=== PATIENT | male | born 1945 | race Caucasian/White ===

== ENCOUNTER → 2016-04-28 | Outpatient (CLI) | payer OTHER ==
[~2016-04-28] MED LIST: ALPR-411 PO; ANT25 PO; ASPI325T45 PO; LISI-461 PO; METF1TAB53 PO; METO50TA16 PO; PARO1TAB29 PO; SIMV80TA2 PO; TAMS0.4C38 PO
--- NOTE | 2016-04-28 15:15 | DIAGNOSTIC IMAGING REPORT ---
TWO VIEW CHEST CLINICAL HISTORY: Cough and dyspnea. FINDINGS: AP and lateral chest radiographs are obtained. No prior studies are available for comparison at the time of dictation. The examination is degraded by large body habitus. The heart is enlarged and there is atherosclerotic calcification of the thoracic aorta. There is mild left basilar atelectasis. The lungs and pleural spaces are otherwise clear. There is no pneumothorax. The skeletal structures appear osteopenic. The bony thorax appears intact. Surgical clips are identified in the upper abdomen. IMPRESSION: Cardiomegaly with no active disease in the chest. Electronically signed by: Lv Gotti M.D. 04/28/2016 3:13 PM
== END | disposition home or self-care (01) ==
LOC: C.RADPV 14:41
PROVIDERS: ATTEND Family Medicine
DX: R05 Cough (principal); R06.02 Shortness of breath

== ENCOUNTER → 2016-08-27 | Outpatient (CLI) | payer OTHER ==
[~2016-08-27] MED LIST changes: -ANT25 PO; +REGADENOSON 0.4 MG/5 ML SYR ONE
--- NOTE | 2016-08-29 14:35 | MYOCARDIAL PERFUSION SCAN ---
ONE-DAY NUCLEAR MEDICINE TECHNETIUM-99M CARDIOLITE MYOCARDIAL PERFUSION SCAN CLINICAL HISTORY: The patient has a known history of coronary artery disease and has been experiencing a chest pain syndrome. COMPARISON: None. TECHNIQUE: For the stress portion of the study, 30.6 mCi of Technetium 99m Cardiolite IV was injected at 1:25p.m. on 08/27/2016. Thirty minutes following the injection, imaging of the heart was performed in multiple projection. For the rest portion of the study, 10.2 mCi of Technetium 99m Cardiolite was injected IV at 11:35 a.m. One hour following the injection, imaging of the heart was performed in the same projections. For the stress portion of the study, 0.4 mg of Lexiscan was injected intravenously as per protocol. The patient did not experience chest discomfort nor EKG changes. Following the infusion, the patient was hemodynamically stable without complaints. FINDINGS: The short axis, vertical long axis, and horizontal long axis images were reviewed in detail. There is a fixed defect involving the proximal and mid inferior wall present at both stress and rest. This likely represents an old myocardial infarction. There is some mild lee ann-infarction ischemia. The left ventricle demonstrates moderately reduced systolic performance with an ejection fraction of 36%. There is an area of akinesis involving the mid and proximal inferior wall. Other vergara function normally. CONCLUSIONS: 1. 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 2. No Lexiscan induced chest pain. 3. No Lexiscan induced EKG changes. 4. Moderately reduced left ventricular ejection fraction of 36% with an inferior wall motion abnormality.
== END | disposition home or self-care (01) ==
LOC: C.NUCL 11:11
PROVIDERS: ATTEND Internal Medicine Cardiovascular Disease
DX: E11.9 Type 2 diabetes mellitus without complications (principal); I25.10 Atherosclerotic heart disease of native coronary artery without angina pectoris; R06.02 Shortness of breath; R07.89 Other chest pain

== ENCOUNTER 2017-04-14 13:32 | Emergency (ER) | payer OTHER ==
[~2017-04-14] VITALS: Ht 167.6 cm; Wt 113.0 kg
[~2017-04-14 13:32] MED LIST changes: -REGADENOSON 0.4 MG/5 ML SYR ONE
[2017-04-14 13:36] VITALS: TEMP 36.3
[2017-04-14 13:47] VITALS: O2SAT 94
[2017-04-14 13:49] VITALS: Ht 167.6 cm; Wt 113.0 kg
[2017-04-14] MEDS ORDERED: SODIUM CHLORIDE 0.9% 500ML 500 ML IV STA (14:03)
--- NOTE | 2017-04-14 14:13 | EMERGENCY ROOM VISIT NOTE ---
History Report prepared by Jony: Sonny Orellana Under the Supervision of: Dr. Patricio Muir D.O. 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 He notes that he has had balance issues, noise in both ears, and intermittent memory loss for one week [employer]STRUCTION SUPERINTENDENT. He notes the noise in his ears sounds like "traffic going by." His PCP prescribed him "motion sickness" medication, though the symptoms have not been relieved. He notes nausea, which he contributes to the medication. He denies any vomiting, chest pain, shortness of breath, or headaches. He denies a history of CVA. He takes Aspirin daily. He has a history of DM. He denies any tobacco or alcohol use. 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 Review of Systems See HPI for pertinent positives & negatives. A total of 10 systems reviewed and were otherwise negative. Past Medical & Surgical Medical Problems: (1) CAD (coronary artery disease) (2) Diabetes (3) HTN (hypertension) Family History Diabetes mellitus FH: gallbladder disease FH: heart disease Hypertension Social History Smoking Status: Former Smoker Alcohol Use: none Drug Use: none Marital Status: Housing Status: lives with significant other Occupation Status: unemployed Current/Historical Medications Scheduled Alprazolam (Xanax), 0.5 MG PO Q6H Aspirin (Aspirin), 325 MG PO DAILY Lisinopril (Zestril), 10 MG PO DAILY Meclizine HCl (Meclizine HCl), 25 MG PO TID Metformin Hcl (Glucophage Ext Rel), 1,000 MG PO BID Metoprolol Tartrate (Lopressor) (Lopressor), 50 MG PO BID Paroxetine (Paxil), 40 MG PO DAILY Simvastatin (Zocor), 80 MG PO QPM Tamsulosin Hcl (Flomax), 0.4 MG PO DAILY Allergies Coded Allergies: No Known Allergies (Unverified , 04/14/17) Physical Exam Vital Signs Date Time Temp Pulse Resp B/P (MAP) Pulse Ox O2 Delivery O2 Flow Rate FiO2 04/14/17 16:26 65 16 144/89 95 04/14/17 15:01 61 20 95 Room Air 04/14/17 13:55 60 22 135/80 94 Room Air 63 133/74 71 104/60 04/14/17 13:51 65 04/14/17 13:47 94 Room Air 04/14/17 13:36 36.3 72 20 158/82 93 Room Air Physical Exam GENERAL: Patient is awake, alert, and in no acute distress. Patient is resting comfortably and showing no signs of anxiety EYES: The conjunctivae are clear. The pupils are restricted and minimally reactive to light bilaterally. EOM intact, no nystagmus noted. EARS, NOSE, MOUTH AND THROAT: The nose is without any evidence of any deformity. Mucous membranes are moist tongue is midline. TMs clear bilaterally. NECK: The neck is nontender and supple. RESPIRATORY: Normal respiratory effort is noted there is no evidence of wheezing rhonchi or rales CARDIOVASCULAR: Regular rate and rhythm noted there no murmurs rubs or gallops normal S1 normal S2 GASTROINTESTINAL: The abdomen is soft. Bowel sounds are present in all quadrants. Abdomen is nontender MUSCULOSKELETAL/EXTREMITIES: There is no evidence of gross deformity full range of motion is noted in the hips and shoulders. Ecchymosis over left lower leg, no deformities, no calf tenderness elicited. SKIN: There is no obvious evidence of any rash. There are no petechiae, pallor or cyanosis noted. Pulses are symmetric. Bilateral pedal edema. NEUROLOGIC: Patient is awake alert and oriented x3 strength is symmetric patellar reflexes are 2+ bilaterally Medical Decision & Procedures ER Provider Diagnostic Interpretation: Radiology results as stated below per my review and radiologist interpretation: CHEST ONE VIEW PORTABLE CLINICAL HISTORY: Altered mental status. COMPARISON STUDY: April 28, 2016 FINDINGS: The heart is mildly enlarged. There is no failure. There is no focal pulmonary consolidation. There are no pleural effusions. There is a prominent left cardiophrenic angle fat pad.[ IMPRESSION: No active disease in the chest. Electronically signed by: Mark Hughes M.D. 04/14/2017 2:14 PM Dictated Date/Time: 04/14/2017 2:13 PM L TIBIA/FIBULA 2 VIEWS ROUTINE CLINICAL HISTORY: Left lower leg pain status post trauma COMPARISON: None. DISCUSSION: No fractures or dislocations are visualized. There are no areas of pathologic periostitis. Minor irregularity of the medial malleolar tip is felt to be chronic. IMPRESSION: No acute fractures identified. Electronically signed by: Mark Hughes M.D. 04/14/2017 2:40 PM Dictated Date/Time: 04/14/2017 2:[address] HEAD WITHOUT CONTRAST (CT) CLINICAL HISTORY: Altered mental status and weakness. COMPARISON STUDY: No previous studies for comparison. TECHNIQUE: Axial CT of the brain is performed from the vertex to the skull base. IV contrast was not administered for this examination. A dose lowering technique was utilized adhering to the principles of ALARA. CT DOSE: FINDINGS: No intra or extra-axial mass lesions are visualized. There is no CT evidence of acute cortical infarction. There is no evidence of midline shift. There is no acute hemorrhage. No calvarial fractures are visualized. There are patchy white matter hypodensities likely on a small vessel basis. There is no evidence of pathologic ventricular dilatation. There is no evidence of acute sinusitis IMPRESSION: No acute intracranial findings Electronically signed by: Mark Hughes M.D. 04/14/2017 2:49 PM Dictated Date/Time: 04/14/2017 2:[address] OF THE CERVICAL SPINE CLINICAL HISTORY: Neck pain and weakness status post trauma COMPARISON STUDY: No previous studies for comparison. CT DOSE: 1201.98 mGy.cm TECHNIQUE: CT scan of the cervical spine was performed from the skull base to the thoracic inlet. Images are reviewed in the axial, sagittal, and coronal planes. IV contrast was not administered for this examination. A dose lowering technique was utilized adhering to the principles of ALARA. FINDINGS: There is a 1 cm left lobe thyroid nodule. There is no pneumothorax. The prevertebral soft tissues are normal. No fractures or subluxations are visualized. There are multilevel degenerative changes IMPRESSION: No evidence of acute fracture or traumatic subluxation. Electronically signed by: Mark Hughes M.D. 04/14/2017 2:49 PM Dictated Date/Time: 04/14/2017 2:45 PM Laboratory Results 04/14/17 14:07 Red Blood Count 4.63, Mean Corpuscular Volume 85.5, Mean Corpuscular Hemoglobin 29.8, Mean Corpuscular Hemoglobin Concent 34.8, Mean Platelet Volume 9.3, Neutrophils (%) (Auto) 63.0, Lymphocytes (%) (Auto) 24.1, Monocytes (%) (Auto) 8.9, Eosinophils (%) (Auto) 3.4, Basophils (%) (Auto) 0.4, Neutrophils # (Auto) 3.13, Lymphocytes # (Auto) 1.20, Monocytes # (Auto) 0.44, Eosinophils # (Auto) 0.17, Basophils # (Auto) 0.02 04/14/17 14:07 Test 04/14/17 14:07 White Blood Count 4.97 K/uL (4.8-10.8) Red Blood Count 4.63 M/uL (4.7-6.1) Hemoglobin 13.8 g/dL (14.0-18.0) Hematocrit 39.6 % (42-52) Mean Corpuscular Volume 85.5 fL (80-100) Mean Corpuscular Hemoglobin 29.8 pg (25-34) Mean Corpuscular Hemoglobin Concent 34.8 g/dl (32-36) Platelet Count 116 K/uL (130-400) Mean Platelet Volume 9.3 fL (7.4-10.4) Neutrophils (%) (Auto) 63.0 % Lymphocytes (%) (Auto) 24.1 % Monocytes (%) (Auto) 8.9 % Eosinophils (%) (Auto) 3.4 % Basophils (%) (Auto) 0.4 % Neutrophils # (Auto) 3.13 K/uL (1.4-6.5) Lymphocytes # (Auto) 1.20 K/uL (1.2-3.4) Monocytes # (Auto) 0.44 K/uL (0.11-0.59) Eosinophils # (Auto) 0.17 K/uL (0-0.5) Basophils # (Auto) 0.02 K/uL (0-0.2) RDW Standard Deviation 46.2 fL (36.4-46.3) RDW Coefficient of Variation 15.0 % (11.5-14.5) Immature Granulocyte % (Auto) 0.2 % Immature Granulocyte # (Auto) 0.01 K/uL (0.00-0.02) Prothrombin Time 10.7 SECONDS (9.0-12.0) Prothromb Time International Ratio 1.0 (0.9-1.1) Activated Partial Thromboplast Time 26.1 SECONDS (21.0-31.0) Partial Thromboplastin Ratio 1.0 Anion Gap 8.0 mmol/L (3-11) Est Creatinine Clear Calc Drug Dose 63.9 ml/min Estimated GFR () 65.9 Estimated GFR (Non- 56.9 BUN/Creatinine Ratio 18.3 (10-20) Calcium Level 9.1 mg/dl (8.5-10.1) Magnesium Level 1.9 mg/dl (1.8-2.4) Total Bilirubin 0.8 mg/dl (0.2-1) Direct Bilirubin 0.2 mg/dl (0-0.2) Aspartate Amino Transf (AST/SGOT) 30 U/L (15-37) Alanine Aminotransferase (ALT/SGPT) 44 U/L (12-78) Alkaline Phosphatase 119 U/L (45-117) Total Creatine Kinase 77 U/L (39-308) Creatine Kinase MB 1.2 ng/ml (0.5-3.6) Creatine Kinase MB Ratio 1.6 (0-3.0) Troponin I < 0.015 ng/ml (0-0.045) Total Protein 7.5 gm/dl (6.4-8.2) Albumin 3.9 gm/dl (3.4-5.0) Lipase 364 U/L (73-393) Thyroid Stimulating Hormone (TSH) 1.890 uIu/ml (0.300-4.500) Laboratory results per my review. Medications Administered Medications (Trade) Dose Ordered Sig/Adonis Route Start Time Stop Time Status Last Admin Dose Admin Sodium Chloride 500 ml @ 999 mls/hr Q31M STAT IV 04/14/17 14:03 04/14/17 14:33 DC 04/14/17 14:15 999 MLS/HR ECG Indication: other (dizziness) Rate (beats per minute): 59 Rhythm: normal sinus Findings: no ectopy, other (no acute ST segment abnormalities ) Comparison ECG Date: no prior available ED Course 1341: The patient was evaluated in room C12B. A complete history and physical examination were performed. 1403: Ordered NSS 500 ml @ 999 mls/hr IV 1555: I reassessed the patient at this time. He is feeling better and resting comfortably. I discussed the results and treatment plan with the patient. I answered all pertaining questions that he had. He expressed understanding and verbalized agreement. The patient will be discharged home. Medical Decision Prior records/ancillary studies reviewed. Triage Nursing notes reviewed. The patient's history was concerning for dizziness and vertigo. Differential diagnosis: Etiologies such as benign positional vertigo, dehydration, hypovolemia, anemia, tumor, infection, hypoglycemia, electrolyte abnormalities, cardiac sources, intracerebral event, toxicologic, neurologic, as well as others were entertained. The patient is a 71-year-old male who presented to the emergency department for an evaluation of dizziness. The patient describes a dizziness which appears to be consistent with vertigo. He is off balance. He was seen by his primary care physician recently started on Antivert. The medication has been helping somewhat. He's also been noticing that his blood sugars have been somewhat difficult to control compared to baseline. The patient states that he is well- hydrated but he appeared to have some degree of orthostasis upon vital sign checks today in the emergency department. The patient was treated with IV fluids. He was reevaluated multiple times. He is able to ambulate without difficulty. He also complained of left lower extremity pain. He states that he fell recently and had what appeared to be a bruise on his left leg. He did not have calf tenderness. He did not complain of chest pain or shortness of breath. The patient was sent to the emergency department today after being seen by his primary care physician. There was some concern that this could represent cellulitis. At this time the patient does not have a fever or an elevated white blood cell count. It appears to be more consistent with a bruise from the fall. I discussed the patient's laboratory and radiographic studies with him. He was encouraged to rest and avoid any strenuous activity. He was also encouraged to continue all medications as prescribed. I also recommended that he follow-up with his primary care physician this is possible for recheck. I did recommend that he discussed the possibility that he may require a Doppler of his leg if symptoms are not improved. He was also encouraged to return if he develop any worrisome symptoms or if he develops fever or increasing redness increasing swelling pain behind the calf or if any signs such as chest pain or shortness of breath develop. I discussed this plan with his significant other's well. They were agreeable. Medication Reconcilliation Current Medication List: was personally reviewed by me Blood Pressure Screening Patient's blood pressure: Normal blood pressure Impression Primary Impression: Vertigo Additional Impressions: Hyperglycemia Orthostatic hypotension Scribe Attestation The scribe's documentation has been prepared under my direction and personally reviewed by me in its entirety. I confirm that the note above accurately reflects all work, treatment, procedures, and medical decision making performed by me. Departure Information Dispostion Home / Self-Care Referrals No Doctor, Assigned (PCP) Forms HOME CARE DOCUMENTATION FORM, IMPORTANT VISIT INFORMATION, WORK / SCHOOL INSTRUCTIONS Patient Instructions ED Vertigo Unspecified, My [facility] Additional Instructions Continue all medications as prescribed. Drink plenty clear liquids. Continue to monitor your blood sugar. Follow-up with your family this week for reevaluation. Return to the emergency department if symptoms worsen or if need arises. Discussed the possibility with your family doctor that you may require further studies or possibly a referral to an ear nose and throat physician to further evaluate the cause your dizziness. Problem Qualifiers
[2017-04-14 14:32] LABS: BASO % 0.4 %; BASO ABS # 0.02 K/uL (0-0.2); COMPLETE YES; EOS % 3.4 %; HEMATOCRIT 39.6 % (42-52); IG% 0.2 %; LYMPH % 24.1 %; MEAN CELL VOLUME 85.5 fL (80-100); MEAN CORPUSCULAR HEMOGLOBIN 29.8 pg (25-34); MEAN CORPUSCULAR HGB CONC 34.8 g/dl (32-36); MEAN PLATELET VOLUME 9.3 fL (7.4-10.4); MONO % 8.9 %; PLATELET COUNT 116 K/uL (130-400); RED BLOOD COUNT 4.63 M/uL (4.7-6.1); WHITE BLOOD COUNT 4.97 K/uL (4.8-10.8)
[2017-04-14 14:40] LABS: PROTHROMBIN TIME (PATIENT) 10.7 SECONDS (9.0-12.0)
--- NOTE | 2017-04-14 14:42 | DIAGNOSTIC IMAGING REPORT ---
L TIBIA/FIBULA 2 VIEWS ROUTINE CLINICAL HISTORY: Left lower leg pain status post trauma COMPARISON: None. DISCUSSION: No fractures or dislocations are visualized. There are no areas of pathologic periostitis. Minor irregularity of the medial malleolar tip is felt to be chronic. IMPRESSION: No acute fractures identified. Electronically signed by: Mark Hughes M.D. 04/14/2017 2:40 PM Dictated Date/Time: 04/14/2017 2:40 PM
[2017-04-14] MEDS ORDERED: ANT25 PO (14:47)
[2017-04-14 14:49] LABS: ALT/SGPT 44 U/L (12-78); BLOOD UREA NITROGEN 23 mg/dl (7-18); BUN/CREATININE RATIO 18.3 (10-20); CALCIUM 9.1 mg/dl (8.5-10.1); CARBON DIOXIDE 26 mmol/L (21-32); CHLORIDE 100 mmol/L (98-107); CREATININE 1.27 mg/dl (0.60-1.40); GLUCOSE 263 mg/dl (70-99); MAGNESIUM 1.9 mg/dl (1.8-2.4); POTASSIUM 3.9 mmol/L (3.5-5.1); SODIUM 134 mmol/L (136-145)
--- NOTE | 2017-04-14 14:50 | DIAGNOSTIC IMAGING REPORT ---
CT HEAD WITHOUT CONTRAST (CT) CLINICAL HISTORY: Altered mental status and weakness. COMPARISON STUDY: No previous studies for comparison. TECHNIQUE: Axial CT of the brain is performed from the vertex to the skull base. IV contrast was not administered for this examination. A dose lowering technique was utilized adhering to the principles of ALARA. CT DOSE: FINDINGS: No intra or extra-axial mass lesions are visualized. There is no CT evidence of acute cortical infarction. There is no evidence of midline shift. There is no acute hemorrhage. No calvarial fractures are visualized. There are patchy white matter hypodensities likely on a small vessel basis. There is no evidence of pathologic ventricular dilatation. There is no evidence of acute sinusitis IMPRESSION: No acute intracranial findings Electronically signed by: Mark Hughes M.D. 04/14/2017 2:49 PM Dictated Date/Time: 04/14/2017 2:41 PM
--- NOTE | 2017-04-14 14:50 | DIAGNOSTIC IMAGING REPORT ---
CT OF THE CERVICAL SPINE CLINICAL HISTORY: Neck pain and weakness status post trauma COMPARISON STUDY: No previous studies for comparison. CT DOSE: 1201.98 mGy.cm TECHNIQUE: CT scan of the cervical spine was performed from the skull base to the thoracic inlet. Images are reviewed in the axial, sagittal, and coronal planes. IV contrast was not administered for this examination. A dose lowering technique was utilized adhering to the principles of ALARA. FINDINGS: There is a 1 cm left lobe thyroid nodule. There is no pneumothorax. The prevertebral soft tissues are normal. No fractures or subluxations are visualized. There are multilevel degenerative changes IMPRESSION: No evidence of acute fracture or traumatic subluxation. Electronically signed by: Mark Hughes M.D. 04/14/2017 2:49 PM Dictated Date/Time: 04/14/2017 2:45 PM
[2017-04-14 14:58] LABS: ALKALINE PHOSPHATASE 119 U/L (45-117); AST/SGOT 30 U/L (15-37); CKMB/CK RATIO 1.6 (0-3.0)
[2017-04-14 16:26] VITALS: BP 144/89; PULSE 65; O2SAT 95
== END 2017-04-14 16:18 | disposition home or self-care (01) ==
LOC: C.EDB 13:35 → C.EDC 16:18
DX: R42 Dizziness and giddiness (principal); E11.65 Type 2 diabetes mellitus with hyperglycemia; I95.1 Orthostatic hypotension; I10 Essential (primary) hypertension; I25.10 Atherosclerotic heart disease of native coronary artery without angina pectoris; Z87.891 Personal history of nicotine dependence; Z83.3 Family history of diabetes mellitus; Z82.49 Family history of ischemic heart disease and other diseases of the circulatory system; Z79.82 Long term (current) use of aspirin; Z79.84 Long term (current) use of oral hypoglycemic drugs; Z79.899 Other long term (current) drug therapy

== ENCOUNTER 2019-02-11 08:41 | Inpatient (IN) ==
--- NOTE | 2019-01-24 20:44 | PAT Medication Instructions ---
Medication Instructions Date of Service January 24, 2019 Home Medications alfuzosin 10 mg PO HS alogliptin 25 mg PO QAM alprazolam 1 mg PO QID PRN aspirin 81 mg PO QAM cyanocobalamin (vitamin B-12) 500 mcg IM MONTHLY insulin detemir U-100 [Levemir U-100 Insulin] 40 unit SUBCUT BID lisinopril 10 mg PO QAM metformin 1,000 mg PO BID metoprolol tartrate 25 mg PO BID paroxetine HCl 40 mg PO HS simvastatin 40 mg PO HS Continue as directed cyanocobalamin (vitamin B-12) 500 mcg IM MONTHLY ASK your prescriber and surgeon aspirin 81 mg PO QAM DO NOT take the morning of surgery alogliptin 25 mg PO QAM lisinopril 10 mg PO QAM metformin 1,000 mg PO BID Take morning of surgery With a small sip of water, OTHERWISE NOTHING TO EAT OR DRINK AFTER MIDNIGHT: alprazolam 1 mg PO QID PRN (if needed) metoprolol tartrate 25 mg PO BID Take evening before surgery alfuzosin 10 mg PO HS alprazolam 1 mg PO QID PRN (if needed) insulin detemir U-100 [Levemir U-100 Insulin] 40 unit SUBCUT BID metformin 1,000 mg PO BID metoprolol tartrate 25 mg PO BID paroxetine HCl 40 mg PO HS simvastatin 40 mg PO HS Insulin Dependent Diabetic Patients * Test your blood sugar the morning of surgery * If Blood Sugar is GREATER THAN 150, take HALF of your regular dose of: insulin detemir U-100 [Levemir U-100 Insulin] take 20 units * If Blood Sugar is LESS THAN 150, DO NOT TAKE ANY: insulin detemir U-100 [Levemir U-100 Insulin] Other Notes If you have any questions please call us at [phone] or [phone] or [phone] or [phone]
--- NOTE | 2019-01-25 09:06 | Anesthesiology Consultation ---
Date of Service January 25, 2019 Assessment & Plan (1) Encounter for pre-operative examination: - Awaiting review preop testing (labs, EKG, CXR). - Awaiting cardiology office visit scheduled 01/28 ([facility]; Jt Duval, PAC). - Check BSG AM DOS - ASA instructions per surgeon/cardiology. - Possible difficult intubation: due to anatomy. Chart Review Chart Review: Patient seen in Pre Admission Testing Teaching & Discussion Pre-Anesthesia Teaching/Discussion Notes: Instructed NPO after midnight before surgery,except medications with 15 cc of water. Medication instructions provided according to the PAT guidelines. History Surgery Operation Date: 02/11/19 07:45 Proposed Procedures p L4-S1 Decompression and Fusion with Spinal Cord Monitoring - V[place] Cabrera, Height/Weight Height: 5 ft 6 in Weight: 112.8 kg Allergies Allergy/AdvReac Type Severity Reaction Status Date / Time No Known Allergies Allergy Unverified 01/20/19 13:14 Medications Home Medications Medication Instructions Recorded Confirmed Last Taken alfuzosin 10 mg PO HS 01/20/19 01/20/19 Unknown alogliptin 25 mg PO QAM 01/20/19 01/20/19 Unknown alprazolam 1 mg PO QID PRN 01/20/19 01/20/19 Unknown aspirin 81 mg PO QAM 01/20/19 01/20/19 Unknown cyanocobalamin (vitamin B-12) 500 mcg IM MONTHLY 01/20/19 01/20/19 Unknown insulin detemir U-100 [Levemir 40 unit SUBCUT BID 01/20/19 01/20/19 Unknown U-100 Insulin] lisinopril 10 mg PO QAM 01/20/19 01/20/19 Unknown metformin 1,000 mg PO BID 01/20/19 01/20/19 Unknown metoprolol tartrate 25 mg PO BID 01/20/19 01/20/19 Unknown paroxetine HCl 40 mg PO HS 01/20/19 01/20/19 Unknown simvastatin 40 mg PO HS 01/20/19 01/20/19 Unknown Past Medical History Medical History Anxiety CAD (coronary artery disease) stent x 1 (2002) Chronic back pain Diabetes mellitus, type 2 IDDM Hyperlipidemia Hypertension Morbid obesity Myocardial Infarction 2002 Exercise / Class Metabolic Activity III < 4 Walking/Shop/Light housework Past Family History Family History Father Family history of diabetes mellitus Brother Family history of diabetes mellitus Mother Family history of diabetes mellitus Sister Family history of diabetes mellitus Past Surgical History Surgical History History of back surgery 1988 History of cardiac cath 2003 - stent x 1 History of cholecystectomy History of colonoscopy W/ POLYPECTOMY Past Anesthesia History No Hx of Anesthesia Complications and No Family Hx of Anesthesia Complications History of PONV No Hx of PONV and No Hx of Motion Sickness Social History Smoking Status: Former smoker Do You Dip or Chew Tobacco: No Smoking End Date: QUIT 1974 Hx Alcohol Use: No Hx Substance Use: No substance use type: does not use Review of Systems Patient denies chest pain, shortness of breath, reflux, cough, wheezing, palpitations. Physical Exam Vital Signs VITALS BP 98/58; recheck: 95/60 (per patient, just took BP medications prior to visit-- patient advised to monitor and followup at cardiology office visit 01/28 at [facility]*) P 73 TEMP 98.0 SP02 94%RA RESP 20 PHYSICAL Full neck and c-spine range of motion. Full TMJ range of motion. TMD 3.5 finger breaths Mallampati Score 4 (small oral opening) Dentition: no teeth on upper, several missing on lower Lungs: clear throughout to auscultation Cardiac: regular rate and rhythm, no murmurs noted Spine: normal Carotid arteries: negative bruit Extremities: no edema Testing Laboratory Results 01/04/19 WBC 4.3 H/H 11.6/37.0 PLATELETS 130 SODIUM 140 POTASSIUM 4.2 CHLORIDE 103 CO2 26 BUN 22 CREATININE 1.1 GLUCOSE 140 Stress Test Date: 08/27/18 Type: nuclear (Lexiscan) Scintigraphic evidence of a prior inferior myocardial infarction without significant lee ann-infarction ischemia. No Lexiscan induced chest pain. No Lexiscan induced EKG changes. Mildly reduced left ventricular systolic function with an inferior wall motion abnormality. Left ventricular ejection fraction is 43%.
--- NOTE | 2019-01-25 10:30 | XRay Report ---
TWO VIEW CHEST CLINICAL HISTORY: Preoperative examination. FINDINGS: PA and lateral chest radiographs are compared to study dated 04/14/2017. The PA view is deg raded by apical lordotic positioning. The heart is enlarged noting atherosclerotic calcification of t he thoracic aorta. The pulmonary vasculature is noncongested. Chronic interstitial thickening is aline lar to previous. The lungs and pleural spaces are clear. There is no pneumothorax. The skeletal stru ctures are osteopenic. Degenerative change is noted in the thoracic spine. The bony thorax appears in tact. Surgical clips are noted in the upper abdomen. IMPRESSION: Cardiomegaly with no active disease in the chest. Electronically signed by: Lv Gotti M.D. 01/25/2019 10:29 AM
[2019-01-25 11:21] LABS: Appearance Urine Clear (Clear); Bilirubin Urine Negative (Negative); Blood Urine Negative (Negative); Color Urine Yellow; Glucose Urine UA Negative (Negative); Ketones Urine Negative (Negative); Leukocyte Esterase Urine Negative (Negative); Nitrite Urine Negative (Negative); Protein Urine Negative (Negative); Specific Gravity Urine 1.023 (1.000-1.030); Urobilinogen Urine Negative (Negative)
[2019-01-25 11:32] LABS: Partial Thromboplastin Ratio 0.9; Partial Thromboplastin Time 25.2 Seconds (21.0-31.0); Prothrombin Time 10.7 Seconds (9.0-12.0)
[2019-01-25 12:36] LABS: Estimated Average Glucose 146 mg/dl; Hemoglobin A1C 6.7 % (4.5-5.6)
[~2019-02-11 08:41] MED LIST changes: +ACETAMINOPHEN 500 MG TAB PO SCH; -ALPR-411 PO; -ASPI325T45 PO; +CEFAZOLIN 2000MG 2,000 MG/15 ML SYR IV SCH; +CeleBREX 200 MG CAP PO SCH; +GABAPENTIN 300 MG CAP PO SCH; +HYDROmorphone INJ 2 MG/ML SYR/VIAL ONE; -LISI-461 PO; +LR 15ML/HR IV SCH; -METF1TAB53 PO; -METO50TA16 PO; +MIDAZOLAM HCL 1 MG/ML 2ML VIAL ONE; -PARO1TAB29 PO; -SIMV80TA2 PO; -TAMS0.4C38 PO; +fentaNYL citrate 100 MCG/2 ML VIAL ONE
--- NOTE | 2019-02-11 09:03 | History & Physical Bridge Note ---
Date of Service February 11, 2019 History & Physical Bridge Note I have examined the patient, reviewed the History & Physical and in the interval since the performance of the History & Physical I have noted the following changes of clinical significance: no changes noted
--- NOTE | 2019-02-11 09:04 | History & Physical Report ---
Date of Service February 11, 2019 Assessment & Plan (1) Spinal stenosis, lumbar region with neurogenic claudication: L4-S1 decompression and fusion Present on Admission?: Yes History of Present Illness Chief Complaint: Back and leg pain. Primary Care Provider: Marques Oshea This is a 73-year-old male that presents with chronic persistent back and leg pain. After failing extensive course of nonoperative care is here for surgical intervention. Allergies Allergy/AdvReac Type Severity Reaction Status Date / Time No Known Allergies Allergy Unverified 02/04/19 13:48 Home Medications Home Medications Medication Instructions Recorded Confirmed Type alfuzosin 10 mg PO HS 01/20/19 02/04/19 History alogliptin 25 mg PO QAM 01/20/19 02/04/19 History alprazolam 1 mg PO QID PRN 01/20/19 02/04/19 History aspirin 81 mg PO QAM 01/20/19 02/04/19 History cyanocobalamin (vitamin B-12) 500 mcg IM MONTHLY 01/20/19 02/04/19 History insulin detemir U-100 [Levemir 40 unit SUBCUT BID 01/20/19 02/04/19 History U-100 Insulin] lisinopril 10 mg PO QAM 01/20/19 02/04/19 History metformin 1,000 mg PO BID 01/20/19 02/04/19 History metoprolol tartrate 25 mg PO BID 01/20/19 02/04/19 History paroxetine HCl 40 mg PO HS 01/20/19 02/04/19 History simvastatin 40 mg PO HS 01/20/19 02/04/19 History blood sugar diagnostic strips #10 ea 01/28/19 02/04/19 History blood-glucose meter kit #1 ea 01/28/19 02/04/19 History lancets MS 01/28/19 02/04/19 History hydrocodone 5 mg-acetaminophen 325 1 tab PO Q8H #30 tab 02/04/19 Rx mg tablet Past Med/Surg History Medical History Anxiety CAD (coronary artery disease) stent x 1 (2002) Chronic back pain Diabetes mellitus, type 2 IDDM Hyperlipidemia Hypertension Morbid obesity Myocardial Infarction 2002 Surgical History History of back surgery 1988 History of cardiac cath 2003 - stent x 1 History of cholecystectomy History of colonoscopy W/ POLYPECTOMY Family History Father Family history of diabetes mellitus Brother Family history of diabetes mellitus Mother Family history of diabetes mellitus Sister Family history of diabetes mellitus Social History Preferred Language: Bolivian Communication Ability: Effective Milling Supervisor Required: No Beliefs That Will Affect Care: None Current Living Situation: Spouse Other Information That Helps Us Care for You: No Feels Safe at Home: Yes Safety Concerns: Feels Safe At This Time Smoking Status: Former smoker Do You Dip or Chew Tobacco: No ; Smoking End Date: QUIT 1974 ; Second Hand Exposure: No ; Tobacco Cessation Education Requested by Patient: No Hx Alcohol Use: No Hx Substance Use: No Physical Exam Physical Exam: Patient is alert and oriented neurologically intact.
[2019-02-11] MEDS ORDERED: fentaNYL citrate 100 MCG/2 ML VIAL ONE ×6 (09:14→12:24)
[2019-02-11] MEDS ORDERED: HYDROmorphone INJ 2 MG/ML SYR/VIAL ONE ×2 (09:14→11:54)
[2019-02-11] MEDS ORDERED: ONDANSETRON INJ 2 MG/ML 2 ML VIAL ONE (09:15)
[2019-02-11] MEDS ORDERED: PROPOFOL IV EMULSION 10 MG/ML 20 ML VIAL IV ONE (09:15)
[2019-02-11] MEDS ORDERED: ROCURONIUM BROMIDE 10 MG/ML 5 ML VIAL ONE (09:15)
[2019-02-11] MEDS ORDERED: NEOSTIGMINE METHYLSULFATE 1 MG/ML 10ML VIAL ONE (09:15)
[2019-02-11] MEDS ORDERED: DEXAMETHASONE SOD INJ 4 MG/ML VIAL ONE (09:15)
[2019-02-11] MEDS ORDERED: GLYCOPYRROLATE 0.2 MG/ML VIAL ONE (09:15)
[2019-02-11] MEDS ORDERED: LIDOCAINE HCL 2% 2 ML VIAL/AMP(20MG/ML) INFIL ONE (09:15)
[2019-02-11] MEDS ORDERED: BUPIVACAINE/EPINEPHRINE 0.5% MPF 1:200,000 30 ML VIAL ONE (09:28)
[2019-02-11] MEDS ORDERED: BACITRACIN INJ 50,000 UNIT VIAL ONE (09:28)
[2019-02-11] MEDS ORDERED: ATROPINE SULFATE 0.1 MG/ML 10ML SYR IV PRN (09:42)
[2019-02-11] MEDS ORDERED: ONDANSETRON INJ 2 MG/ML 2 ML VIAL IV PRN ×2 (09:42→15:16)
[2019-02-11] MEDS ORDERED: LABETALOL HCL IV 5 MG/ML 20ML IV PRN (09:42)
[2019-02-11] MEDS ORDERED: HYDROmorphone INJ 1 MG/ML SYRINGE IV PRN ×2 (09:42→15:16)
[2019-02-11] MEDS ORDERED: FLOSEAL HEMOSTATIC MATRIX 10ML TOP ONE (12:19)
--- NOTE | 2019-02-11 12:26 | Operative Report ---
Post Operative Report Pre & Post Diagnosis Operation Date: 02/11/19 10:25 Pre-Op Diagnosis: Lumbar Spinal Stenosis with Neurogenic Claudication Post-Op Diagnosis: Lumbar Spinal Stenosis with Neurogenic Claudication I identified the patient and participated in the time-out.: Yes Procedure Operation Date: 02/11/19 10:25 Actual Procedures #1 revision decompression with bilateral medial facetectomies foraminotomies L3- 4 L4-5 L5-S1. #2 posterior spinal fusion L4-5 L5-S1. #3 placement posterior instrumentation L4-5 L5-S1. #4 interbody fusion L4-5 L5-S1. #5 placement of titanium 11 x 26 mm cage at L4-5 and 12 x 26 mm cage at L5-S1. #6 placement of locally harvested morselized autograft in the posterior lateral gutters. #7 placement infuse collagen sponge, master graft in the posterior lateral gutters and ostial amp and interbody space. Surgeon Vega Cabrera, DO [employer] Consultant Johnathan Hilton Estimated Blood Loss 550 Findings See Below Patient is 5 foot 6 inches tall weighing 114 kg with a BMI in excess of 40. This combined with an EBL of over 500 cc created significant technical difficulty adding at least 50% increase in operative time. Specimens None Indications This is a 73-year-old male presents with above-mentioned diagnosis after failing extensive course of nonoperative care like to undergo the above-mentioned procedure. Description of Procedure The patient was met with identified and informed consent obtained. Patient was then taken to the operative suite underwent intubation placed in a prone position on the Eric table on top of the Yrn frame. All bony prominences well-padded eyes inspected to ensure no external pressure placed upon the peer at this point the lumbar spine was prepped and draped in the normal sterile fashion. Sharp dissection with the assistance of Bovie cautery was performed down to and exposing the remaining lamina and transverse processes of L4-L5 and the sacral ala bilaterally. From a caudal cephalad fashion a revision complete laminectomy of L5 L4 and partial laminectomy of L3 was performed including bilateral medial facetectomies and foraminotomies addressing severe stenosis and recurrent disc herniation at L4-5 on the right. After this was complete pedicle screws were placed in L4 L5-S1 levels bilaterally with assistance of fluoroscopy and appropriate size gina placed. By way of a transforaminal approach on the right complete discectomy of L5-S1 was performed endplates curetted to subcortical being bone and a 12 x 26 mm titanium cage filled with ostium bone graft tapped in position. Then proceeded to L for [address] of a transforaminal approach on the right complete discectomy performed in plate graded to subcortical mean bone and an 11 x 26 mm titanium cage filled with osteo-amp bone graft tapped in position. The rods were then compressed locked into final position bilaterally. The transverse processes of L4-L5 and sacral ala bur to subcortical bleeding bone. Infuse collagen sponge master graft and local autograft placed in the posterior lateral gutters. 15 round PANCHO drain inserted. The incision was then closed with 1 Vicryl in the fascia 2-0 Vicryl subcutaneously and 4-0 Monocryl for final skin closure. Steri-Strips dressings placed. Patient will continue to PACU stable condition. Please note Johnathan Hilton present throughout the entire procedure involved the patient positioning complex portions of the surgery and final skin closure. Lastly spinal cord monitoring was utilized that the procedure and no changes noted. I attest to the content of the Intraoperative Record and any orders documented therein. Any exceptions are noted below.
--- NOTE | 2019-02-11 12:27 | Fluoroscopy Report ---
FL lumbar spine 2-3V CLINICAL HISTORY: L4-S1 DECOMPRESSION AND FUSION COMPARISON STUDY: Lumbar spine radiographs February 05, 2016. FLUOROSCOPY TIME: 21 seconds. FLUOROSCOPIC IMAGES: 2. FINDINGS: These images demonstrate L4-L5 and L5-S1 discectomies with interbody spacer placement. Post erior decompression is noted with bilateral pedicle screws at the L4, L5 and S1 levels with interconn ecting rods. Hardware is intact. There are no unexpected radiopaque foreign bodies. IMPRESSION: Expected findings following L4-S1 posterior decompression, discectomy and fusion. Electronically signed by: Miquel Bueno M.D. 02/11/2019 12:26 PM
[2019-02-11] MEDS ORDERED: PHENYLEPHRINE 100MCG/ML 5ML SYR ONE (12:28)
[2019-02-11] MEDS ORDERED: ePHEDrine sulfate 50 MG/ML AMP ONE (12:28)
[2019-02-11] MEDS ORDERED: ePHEDrine sulfate 50 MG/ML SYR ONE (12:28)
[2019-02-11] MEDS ORDERED: LARYING-O-JET KIT (LTA) ONE (12:53)
[2019-02-11] MEDS ORDERED: KETOROLAC 30 MG/ML VIAL ONE (12:53)
--- NOTE | 2019-02-11 13:32 | Anesthesiology Progress Note ---
Date of Service February 11, 2019 Anesthesia Post Procedure Vital Signs Vital Signs: Temp Pulse Pulse Resp BP Pulse Ox 02/11/19 13:15 91 H 18 160/72 H 95 02/11/19 13:05 92 H 19 141/78 H 95 02/11/19 12:55 88 17 146/73 H 93 02/11/19 12:45 36.2 C L 93 H 16 136/73 97 02/11/19 09:20 36.6 C 64 18 131/62 94 Transfer of Care Handoff Completed per policy Notes Mental Status: alert / awake / arousable Patient Amnestic to Procedure: Yes Nausea / Vomiting: adequately controlled Pain: adequately controlled Airway Patency, RR, SpO2: stable & adequate BP & HR: stable & adequate Hydration State: stable & adequate Anesthetic Complications: no major complications apparent
[2019-02-11] MEDS ORDERED: NALOXONE HCL 0.4 MG/1 ML VIAL/CARP IV PRN (15:16)
[2019-02-11] MEDS ORDERED: ONDANSETRON 4 MG TAB PO PRN (15:16)
[2019-02-11] MEDS ORDERED: DO NOT ADMINISTER PNEUMOCOCCAL VACCINE PRN (15:16)
[2019-02-11] MEDS ORDERED: SOD PHOSPHATE/SOD BIPHOSPHATE ENEMA 132 ML BTL PR PRN (15:16)
[2019-02-11] MEDS ORDERED: ALUMINUM/MAGNESIUM SUSP 30 ML UDC PO PRN (15:16)
[2019-02-11] MEDS ORDERED: bisacodyL 10 MG SUPP PR PRN (15:16)
[2019-02-11] MEDS ORDERED: LORazepam 0.5 MG/1 ML VIAL IV PRN (15:16)
[2019-02-11] MEDS ORDERED: PROMETHAZINE HCL 12.5 MG in SODIUM CHLORIDE 0.9% 50 ML IV PRN (15:16)
[2019-02-11] MEDS ORDERED: HYDROmorphone INJ 0.5 MG/0.5 ML SYR IV PRN (15:16)
[2019-02-11] MEDS ORDERED: MAGNESIUM HYDROXIDE SUSP 30 ML UDC PO PRN (15:16)
[2019-02-11] MEDS ORDERED: ACETAMINOPHEN 500 MG TAB PO PRN (15:16)
[2019-02-11] MEDS ORDERED: LORazepam 0.5 MG TAB PO PRN (15:16)
[2019-02-11] MEDS ORDERED: DO NOT ADMINISTER FLU VACCINE PRN (15:16)
[2019-02-11] MEDS ORDERED: METOCLOPRAMIDE HCL INJ 5 MG/ML 2 ML VIAL IV PRN (15:16)
[2019-02-11] MEDS ORDERED: FAMOTIDINE 20 MG TAB PO PRN (15:16)
[2019-02-11] MEDS ORDERED: ACETAMINOPHEN 1,000 MG/100 ML VIAL IV PRN (15:16)
[2019-02-11] MEDS ORDERED: GLUCOSE 40% GEL 15 GM TUBE PO PRN (16:22)
[2019-02-11] MEDS ORDERED: CARBOHYDRATES FOR HYPOGLYCEMIA PO PRN (16:22)
[2019-02-11] MEDS ORDERED: DEXTROSE 50% 50 ML SYRINGE IV PRN (16:22)
[2019-02-11] MEDS ORDERED: GLUCOSE 10 TABS/TUBE PO PRN (16:22)
[2019-02-11] MEDS ORDERED: GLUCAGON FOR INJ 1 MG VIAL SQ PRN (16:22)
--- NOTE | 2019-02-11 16:30 | Consultation ---
Date of Consultation February 11, 2019 Assessment & Plan (1) Status post lumbar surgery: Post op day# 0 S/P L3-S1 decompression and L4-S1 fusion by Dr Deborah KIM#550ml -pain management per ortho -wound management per ortho -PT/OT as appropriate -DVT prophylaxis per ortho -incentive spirometry -monitor H&H for acute blood loss anemia. Pre-op Hgb was 11.6 (2) CAD (coronary artery disease): S/P ND 1999, S/P stent RCA and h/o in-stent restenosis Denies CP or SOB -Continue metoprolol, statin, aspirin (3) Hypertension: Stable -Continue metoprolol -Hold lisinopril and reassess tomorrow morning (4) Hyperlipidemia: -Continue simvastatin (5) Diastolic dysfunction: EF: 43% on 08/2018 -Monitor I's and O's (6) Diabetes mellitus, type 2: A1c: 6.4 on 01/04/2019 -Hold metformin, alogliptin -Continue Levemir -NovoLog sliding scale per protocol (7) Anxiety: -Continue fluoxetine (8) BPH (benign prostatic hyperplasia): -Continue alfuzosin DVT Prophylaxis -SCDs per ortho Follows with Dr Marques Oshea [facility] for routine care Pt was seen and care coordinated with Dr Dupont. See addendum Thank you for this consultation. We will follow the patient with you during their hospital stay. You can reach a member of the [facility] Hospitalist Team 17/11 via pager @ [phone]. Supervising Physician Co-Signing Physician Notes HISTORY: Record reviewed. Patient interviewed and examined in his room. Care coordinated with Mana Fitzgerald PA-C. Please refer to her documentation for detailed history. Briefly, 73-year-old male with history of coronary artery disease (status post ND, status post PCI of RCA), CHF with baseline LVEF of 43% in August 2018, hypertension, diabetes, and other problems. Preoperative nuclear stress study on 08/27/2018 showed old inferior infarct without stress-induced ischemia. Revision of lumbar decompression/fusion performed earlier today. Doing well postoperatively. No chest pain, cough, shortness of breath, nausea, vomiting. Pain well controlled. Blood sugars elevated postop. EXAM: General- no distress Lungs- clear to auscultation; no respiratory distress Cardiovascular- RRR; no gallop; no JVD; no pretibial edema Abdomen- + bowel sounds, soft, nontender Extremities- no cyanosis; no calf tenderness; TEDS applied Neuro- alert, oriented Skin- warm & dry DATA: Blood sugar at 1714 was 331. Chest x-ray performed 01/25/2019 showed cardiomegaly, no active disease. EKG performed 01/25/2019 reviewed and demonstrated normal sinus rhythm at 70/minute, no acute changes. ASSESSMENT AND PLAN: Status post revision lumbar decompression/fusion. Doing well postoperatively except for elevated blood sugars. Diabetes mellitus type 2 usually managed with insulin detemir, metformin, alogliptin. Preop Hgb A1C was 6.7. Elevated blood sugars postop probably multifactorial- perioperative steroids, surgery, bedrest contributing factors. JAM Gabriel discussed management of diabetes with pharmacy. Hold oral agents during hospital stay. Continue Levemir. NovoLog coverage per protocol. Stable coronary artery disease with nonischemic preoperative nuclear stress celeste t. Continue aspirin if okay from surgical perspective. Continue metoprolol and statin. History of hypertension. Blood pressure stable postoperatively. Continue metoprolol and lisinopril. Please refer to JAM Gabriel's documentation for discussion of other issues. Thank you for this consultation. We will follow the patient with you during their hospital stay. My cell # is [phone]. You can reach a member of the [facility] Medicine Team 17/11 via pager @ [phone]. History of Present Illness Reason for Consultation: Postop medical management Attending Physician: Vega Cabrera, History of Present Illness Pt is 73 y/o M with PMH HTN, HLD, insulin-dependent DM II, CAD s/p ND in 1999 s/p stent RCA and h/o stent restenosis, diastolic dysfunction with EF: 43%, BPH, anxiety seen in consultation for post op medical management S/P L3-S1 decompression and L4-S1 fusion by Dr Cabrera. Post op pt reports having some low back discomfort. Denies any pain to legs. Reports some paresthesias to bilateral feet. Pt;s son reports after surgery pt has been talking about someone from [place] war and seemed to be having some flash backs. This has since seemed to resolve. Denies any nausea, vomiting. Denies fever/chills, diaphoresis, BACON, dizziness, neck pain, CP, SOB, palpitations, cough, sore throat, abdominal pain, extremity edema, rashes, suicidal/homicidal ideations. Allergies Allergy/AdvReac Type Severity Reaction Status Date / Time No Known Allergies Allergy Verified 02/11/19 09:06 Home Medications Home Medications Medication Instructions Recorded Confirmed Type alfuzosin 10 mg PO HS 01/20/19 02/11/19 History alogliptin 25 mg PO QAM 01/20/19 02/11/19 History alprazolam 1 mg PO QID PRN 01/20/19 02/04/19 History aspirin 81 mg PO QAM 01/20/19 02/11/19 History cyanocobalamin (vitamin B-12) 500 mcg IM MONTHLY 01/20/19 02/11/19 History insulin detemir U-100 [Levemir 40 unit SUBCUT BID 01/20/19 02/11/19 History U-100 Insulin] lisinopril 10 mg PO QAM 01/20/19 02/11/19 History metformin 1,000 mg PO BID 01/20/19 02/11/19 History metoprolol tartrate 25 mg PO BID 01/20/19 02/11/19 History paroxetine HCl 40 mg PO HS 01/20/19 02/11/19 History simvastatin 40 mg PO HS 01/20/19 02/11/19 History blood sugar diagnostic strips #10 ea 01/28/19 02/04/19 History blood-glucose meter kit #1 ea 01/28/19 02/04/19 History lancets MS 01/28/19 02/04/19 History hydrocodone 5 mg-acetaminophen 325 1 tab PO Q8H #30 tab 02/04/19 02/11/19 Rx mg tablet Patient History Medical History Diastolic dysfunction (Chronic) BPH (benign prostatic hyperplasia) (Chronic) Hyperlipidemia (Chronic) Hypertension (Chronic) Myocardial Infarction (Chronic) 2002 Anxiety (Chronic) Diabetes mellitus, type 2 (Chronic) IDDM Chronic back pain (Chronic) CAD (coronary artery disease) (Chronic) stent x 1 (2002) Morbid obesity (Chronic) Surgical History Status post lumbar surgery (Chronic) History of cardiac cath (Chronic) 2002 - stent x 1 History of colonoscopy (Chronic) W/ POLYPECTOMY History of cholecystectomy (Chronic) History of back surgery (Chronic) 1988 Family History Father Family history of diabetes mellitus Brother Family history of diabetes mellitus Mother Family history of diabetes mellitus Sister Family history of diabetes mellitus Son Hypertension Social History Preferred Language: Sinhala Communication Ability: Effective Die Maker Electronic Required: No Beliefs That Will Affect Care: None Current Living Situation: Spouse Other Information That Helps Us Care for You: No Feels Safe at Home: Yes Safety Concerns: Feels Safe At This Time Smoking Status: Former smoker Do You Dip or Chew Tobacco: No ; Smoking End Date: QUIT 1974 ; Second Hand Exposure: No ; Tobacco Cessation Education Requested by Patient: No Hx Alcohol Use: No Hx Substance Use: No Review of Systems Review of Systems: All systems reviewed & are unremarkable except as noted in HPI & below Physical Exam Physical Exam: General: no distress, obese Head: normocephalic, atraumatic Eyes: PERRL, EOM's intact, conjunctiva non-injected, anicteric ENT: normal inspection external ears, nose, mucous membranes moist Neck: supple, trachea midline, non-tender Lungs: clear, no respiratory distress, no wheezing/rhonchi/rales CV: RRR, no murmur, no pretibial edema Abd: normal BS, soft, non-tender Back: surgical dressing in place is dry, +PANCHO drain in place with seroserous drainage Ext: no cyanosis, no calf tenderness Neuro: A&O x 3, no focal deficits noted, normal affect Skin: warm, dry Results & Data Vital Signs (Past 12 Hours) Vital Signs Temp Pulse Pulse Resp BP Pulse Ox 02/11/19 15:50 36.4 C L 102 H 18 123/70 93 02/11/19 15:20 36.4 C L 107 H 18 121/73 93 02/11/19 14:45 36.8 C 110 H 18 146/77 H 91 02/11/19 14:15 100 H 15 137/77 93 02/11/19 14:05 96 H 18 155/75 H 93 02/11/19 13:55 93 H 20 155/81 H 93 02/11/19 13:45 36.3 C L 94 H 20 158/80 H 93 02/11/19 13:35 94 H 20 148/82 H 94 02/11/19 13:25 89 20 151/75 H 95 02/11/19 13:15 91 H 18 160/72 H 95 02/11/19 13:05 92 H 19 141/78 H 95 02/11/19 12:55 88 17 146/73 H 93 02/11/19 12:45 36.2 C L 93 H 16 136/73 97 02/11/19 09:20 36.6 C 64 18 131/62 94 Diagnostic Findings L SPINE XRAY IMPRESSION: Expected findings following L4-S1 posterior decompression, discectomy and fusion.
[2019-02-11] MEDS ORDERED: METOPROLOL TARTRATE 25 MG TAB PO STA (16:52)
[2019-02-11] MEDS ORDERED: INSULIN DETEMIR FLEXPEN/FLEX TOUCH 100 UNITS/ML 3ML SC STA (17:34)
[2019-02-11] MEDS: SODIUM CHLORIDE 0.9% 1000ML 1,000 ML IV SCH (17:51)
[2019-02-11] MEDS: CEFAZOLIN 2000MG 2,000 MG/15 ML SYR IV SCH (17:52)
[2019-02-11] MEDS ORDERED: INSULIN DETEMIR SC STA (18:01)
[2019-02-11] MEDS: INSULIN ASPART 100 UNITS/ML 3 ML PEN SC SCH ×2 (18:02→21:40)
[2019-02-11] MEDS: SIMVASTATIN 40 MG TAB PO SCH (20:48)
[2019-02-11] MEDS: PARoxetine HCl 20 MG TAB PO SCH (20:48)
[2019-02-11] MEDS: ALFUZOSIN HCL 10 MG TAB PO SCH (20:48)
[2019-02-11] MEDS: DOCUSATE SODIUM/SENNA 50/8.6MG TAB PO SCH (20:48)
[2019-02-11] MEDS ORDERED: INSULIN DETEMIR SC SCH (21:00)
[2019-02-11] MEDS ORDERED: METOPROLOL TARTRATE 25 MG TAB PO SCH (21:00)
[2019-02-11] MEDS ORDERED: PHARMACY GLYCEMIC MGMT CONSULT PRN (21:53)
[2019-02-11] MEDS ORDERED: INSULIN HUMAN REGULAR PER UNIT 5 UNITS in SYRINGE 4.95 ML IV ONE (22:00)
[2019-02-11] MEDS ORDERED: INSULIN DETEMIR SC ONE (22:15)
[2019-02-12] MEDS: INSULIN ASPART 100 UNITS/ML 3 ML PEN SC SCH ×5 (00:21→20:37)
[2019-02-12] MEDS: SODIUM CHLORIDE 0.9% 1000ML 1,000 ML IV SCH ×2 (00:24→08:27)
[2019-02-12] MEDS: CEFAZOLIN 2000MG 2,000 MG/15 ML SYR IV SCH (02:21)
[2019-02-12] MEDS ORDERED: INSULIN ASPART 100 UNITS/ML 3 ML PEN SC SCH (04:00)
[2019-02-12] MEDS: OXYCODONE HCL IR 5 MG TAB (IMMEDIATE RELEASE) PO PRN ×2 (04:20→12:10)
[2019-02-12 05:51] LABS: Hematocrit (blood only) 28.3 % (42-52); Hemoglobin 9.1 g/dL (14.0-18.0); Immature Granulocytes # (auto) 0.01 K/uL (0.00-0.02); Immature Granulocytes % (auto) 0.1 %; Lymphocytes # (auto) 0.49 K/uL (1.2-3.4); Lymphocytes % (auto) 5.9 %; Mean Corpuscular Hgb Conc 32.2 g/dL (32-36); Mean Corpuscular Volume 80.9 fL (80-100); Mean Platelet Volume 9.6 fL (7.4-10.4); Monocytes # (auto) 0.48 K/uL (0.11-0.59); Monocytes % (auto) 5.8 %; Neutrophils % (auto) 88.2 %; Platelet Count 123 K/uL (130-400); RDW Standard Deviation 46.4 fL (36.4-46.3); White Blood Count 8.28 K/uL (4.8-10.8)
[2019-02-12] MEDS: POLYETHYLENE (MIRALAX) 17 GM PACK PO SCH ×4 (06:16→23:21)
[2019-02-12 06:22] LABS: BUN Creatinine Ratio 17.3 (10-20); Calcium 8.1 mg/dl (8.5-10.1); Est GFR (African American) 69.6; Est GFR (Non-African American) 60.1; Potassium 3.9 mmol/L (3.5-5.1)
[2019-02-12] MEDS ORDERED: INSULIN DETEMIR SC ONE ×2 (08:30→12:00)
--- NOTE | 2019-02-12 08:39 | Orthopedic Progress Note ---
Date of Service February 12, 2019 Assessment & Plan (1) Spinal stenosis, lumbar region with neurogenic claudication: This time will initiate physical therapy monitor his PANCHO output hopefully discharge home Thursday. Present on Admission?: Yes (2) Acute blood loss as cause of postoperative anemia: Present on Admission?: No Subjective Patient's back pain is controlled leg symptoms markedly improved. Physical Exam Physical Exam: Patient is sitting in the chair at the bedside. Is good strength testing. Appears comfortable. Results & Data Vital Signs (Past 12 Hours) Vital Signs Temp Pulse Pulse Resp BP Pulse Ox 02/12/19 07:44 93 02/12/19 07:12 36.6 C 65 18 138/67 95 02/12/19 04:05 36.6 C 88 16 111/61 96 02/11/19 23:14 36.9 C 94 H 18 116/58 L 95
[2019-02-12] MEDS ORDERED: INSULIN DETEMIR SC SCH (09:00)
[2019-02-12] MEDS ORDERED: lisinopriL 10 MG TAB PO SCH (09:00)
[2019-02-12] MEDS ORDERED: HYDROmorphone INJ 0.5 MG/0.5 ML SYR IV STA (09:13)
[2019-02-12] MEDS: ASPIRIN 81 MG ECTAB PO SCH (09:34)
[2019-02-12] MEDS: METOPROLOL TARTRATE 25 MG TAB PO SCH ×2 (09:34→20:41)
--- NOTE | 2019-02-12 09:53 | Hospitalist Progress Note ---
Date of Service February 12, 2019 Assessment & Plan (1) Status post lumbar surgery: -Post op L3-S1 decompression and L4-S1 fusion by Dr Cabrera on 02/11/19 because of Lumbar Spinal Stenosis with Neurogenic Claudication (Actual Procedures #1 revision decompression with bilateral medial facetectomies foraminotomies L3- 4 L4-5 L5-S1. #2 posterior spinal fusion L4-5 L5-S1. #3 placement posterior instrumentation L4-5 L5-S1. #4 interbody fusion L4-5 L5-S1. #5 placement of titanium 11 x 26 mm cage at L4-5 and 12 x 26 mm cage at L5-S1. #6 placement of locally harvested morselized autograft in the posterior lateral gutters. #7 placement infuse collagen sponge, master graft in the posterior lateral gutters and ostial amp and interbody space) -wound care and management of PANCHO drain as per orthopedics -pain medications, anti-emetics, bowel regimen -incentive spirometry Acute Blood loss anemia -Estimated blood loss from surgery is 550ml -Hemoglobin 9.1 on 02/12/19 (2) CAD (coronary artery disease): S/P SC 1999, S/P stent RCA and h/o in-stent restenosis -Continue metoprolol, statin, aspirin Jaw pain -Patient's nurse reported to hospitalist medicine consult physician that patient had acute bilateral lower jaw pain after eating meals and then with general malaise and because of patient's cardiac history, she would like consult physician to assess. When seen at the bedside, patient reports the pain has been gone and he is feeling better. denies pain of the chest or the arms. no acute shortness of breath. he did not vomit. no abdominal pain. he did not report of dizziness currently. EKG was completed and no evidence of ischemia. -troponin negative x 1 -attempts to assess serum magnesium but sample hemolyzed. will repeat lab test after calcium gluconate given -low ionized calcium of 1.07, calcium gluconate 1000 mg x 1 ordered Hypocalcemia -low ionized calcium of 1.07, calcium gluconate 1000 mg x 1 ordered (3) Diastolic dysfunction: EF: 43% on 08/2018 -Monitor I's and O's (4) Hypertension: -Continue metoprolol -Hold lisinopril for now (5) Hyperlipidemia: -Continue simvastatin (6) Diabetes mellitus, type 2: A1c: 6.4 on 01/04/2019 -Hold metformin, alogliptin -Continue Levemir -NovoLog sliding scale per protocol (7) Anxiety: -Continue fluoxetine (8) BPH (benign prostatic hyperplasia): -Continue alfuzosin DVT Prophylaxis -SCDs Patient Follows with Dr Marques Oshea [facility] for outpatient primary care Subjective Patient's nurse reported to hospitalist medicine consult physician that patient had acute bilateral lower jaw pain after eating meals and then with general malaise and because of patient's cardiac history, she would like consult physician to assess. When seen at the bedside, patient reports the pain has been gone and he is feeling better. denies pain of the chest or the arms. no acute shortness of breath. he did not vomit. no abdominal pain. he did not report of dizziness currently. EKG was completed and no evidence of ischemia. Physical Exam Eyes: PERRL, conjunctivae normal, anicteric sclerae EOM intact bilaterally ENMT: external ear and nose normal, oropharynx normal Neck: normal visual inspection Respiratory: normal respiratory effort, lungs clear to auscultation Cardiovascular: Rate/Rhythm: regular rate and regular rhythm Gastrointestinal (Abdomen): normal bowel sounds, soft, nontender, no hepatosplenomegaly Musculoskeletal: Head/Neck/Chest: normocephalic and head atraumatic PANCHO drain to the back Neurologic: PERRL, EOMI, accommodation nl, no face palsy, no dysarthria Psychiatric: A+Ox3, euthymic affect Results & Data Vital Signs (Past 12 Hours) Vital Signs Temp Pulse Pulse Resp BP Pulse Ox 02/12/19 09:35 74 118/63 93 02/12/19 08:52 76 18 121/69 97 02/12/19 07:44 93 02/12/19 07:12 36.6 C 65 18 138/67 95 02/12/19 04:05 36.6 C 88 16 111/61 96 02/11/19 23:14 36.9 C 94 H 18 116/58 L 95
[2019-02-12 09:59] LABS: Troponin I 0.019 ng/ml (0-0.045)
[2019-02-12] MEDS ORDERED: CALCIUM GLUCONATE 10% 1,000 MG in SODIUM CHLORIDE 0.9% 50 ML IV ONE (10:00)
--- NOTE | 2019-02-12 11:30 | Pharmacy Report ---
Pharmacy Glycemic Short Note 2 - Date of Service February 12, 2019 - Glycemic Short BSG Results (Last 24 hours): 02/11/19 02/11/19 02/11/19 12:51 17:11 17:14 Glucose POC Glucose 249 H 352 H* 331 H* 02/11/19 02/12/19 02/12/19 20:34 00:13 04:06 Glucose POC Glucose 329 H* 261 H 207 H 02/12/19 02/12/19 04:45 08:08 Glucose 179 H POC Glucose 179 H OUTPATIENT ANTIDIABETIC REGIMEN: * Levemir 40 units SQ BID * Metformin 1000 mg PO BID + alogliptin 25 mg PO qAM * A1c 6.7% (01/25/19) ASSESSMENT: * 73 year old T2DM male POD #1 s/p lumbar surgery * Pharmacy was consulted 10 PM due to severe hyperglycemia (BSG 331, 329 mg/dL) which was likely caused by pre-op dexamethasone 12 mg IV. * Bjorn was given 55 units of Levemir and a 5 unit regular IV bolus last evening. BSG improved to 179 mg/dL this AM. Bjorn was ordered his home dose of Levemir 40 units SQ BID on admission. I adjusted this mornings dose to 45 units and will order a scale for tonight. * Continue tight Novolog coverage until dexamethasone has worn off. Will loosen to CF/CR of 15/5 later today. PLAN FOR INPATIENT GLYCEMIC CONTROL: * Hold outpatient oral diabetes medications * Basal insulin * Lantus 45 units SQ x 1 , then per scale BID: * 35 units for BSG < 140 mg/dL * 40 units for BSG 140 - 180 mg/dL * 45 units for BSG > 180 mg/dL * Bolus insulin * NovoLog per scale ACHS or Q6hrs while NPO * Goal Range: Low 110 mg/dL - High 140 mg/dL * Correction Factor: 10 mg/dL/unit * Nutritional / Prandial insulin per carb ratio of 1 unit per 3 grams CHO consumed PLAN FOR DISCHARGE: * A1c of 6.7% is at goal * Continue home regimen on discharge
[2019-02-12 16:50] LABS: BUN Creatinine Ratio 17.7 (10-20); Bilirubin,Total 0.5 mg/dl (0.2-1); Calcium 8.3 mg/dl (8.5-10.1); Creatinine Clr Calc Pharmacy 60.5 ml/min; Est GFR (African American) 62.6; Globulin 2.9 gm/dl (2.5-4.0); Magnesium 1.9 mg/dl (1.8-2.4); Potassium 4.6 mmol/L (3.5-5.1); Total Protein 5.9 gm/dl (6.4-8.2)
[2019-02-12] MEDS ORDERED: MAGNESIUM SULFATE / D5W 1 GM/100 ML BAG IV ONE (17:45)
[2019-02-12] MEDS: PARoxetine HCl 20 MG TAB PO SCH (20:37)
[2019-02-12] MEDS: ALFUZOSIN HCL 10 MG TAB PO SCH (20:37)
[2019-02-12] MEDS: DOCUSATE SODIUM/SENNA 50/8.6MG TAB PO SCH (20:37)
[2019-02-12] MEDS: INSULIN DETEMIR SC SCH (20:38)
[2019-02-12] MEDS: SIMVASTATIN 40 MG TAB PO SCH (20:41)
[2019-02-12] MEDS: TRAMADOL HCL 50 MG TABLET PO PRN (23:26)
[2019-02-13] MEDS: TRAMADOL HCL 50 MG TABLET PO PRN ×3 (03:28→15:31)
[2019-02-13 05:15] LABS: Basophils # (auto) 0.01 K/uL (0-0.2); Basophils % (auto) 0.2 %; Eosinophils # (auto) 0.05 K/uL (0-0.5); Hemoglobin 8.7 g/dL (14.0-18.0); Immature Granulocytes # (auto) 0.02 K/uL (0.00-0.02); Immature Granulocytes % (auto) 0.4 %; Lymphocytes # (auto) 0.59 K/uL (1.2-3.4); Lymphocytes % (auto) 11.6 %; Mean Corpuscular Hemoglobin 26.2 pg (25-34); Mean Corpuscular Hgb Conc 32.2 g/dL (32-36); Mean Corpuscular Volume 81.3 fL (80-100); Mean Platelet Volume 8.9 fL (7.4-10.4); Monocytes # (auto) 0.58 K/uL (0.11-0.59); Monocytes % (auto) 11.4 %; Neutrophils # (auto) 3.82 K/uL (1.4-6.5); Neutrophils % (auto) 75.4 %; Platelet Count 101 K/uL (130-400); RDW Coefficient of Variation 16.3 % (11.5-14.5); RDW Standard Deviation 47.4 fL (36.4-46.3); Red Blood Count 3.32 M/uL (4.7-6.1); White Blood Count 5.07 K/uL (4.8-10.8)
[2019-02-13 05:55] LABS: Albumin Globulin Ratio 1.1 (0.9-2); Albumin Level 2.9 gm/dl (3.4-5.0); BUN Creatinine Ratio 21.5 (10-20); Bilirubin,Total 0.5 mg/dl (0.2-1); Calcium 8.1 mg/dl (8.5-10.1); Creatinine Clr Calc Pharmacy 68.9 ml/min; Est GFR (African American) 73.3; Est GFR (Non-African American) 63.2; Globulin 2.7 gm/dl (2.5-4.0); Potassium 3.9 mmol/L (3.5-5.1); Total Protein 5.6 gm/dl (6.4-8.2)
[2019-02-13] MEDS: POLYETHYLENE (MIRALAX) 17 GM PACK PO SCH ×3 (06:16→18:16)
[2019-02-13] MEDS: ASPIRIN 81 MG ECTAB PO SCH (09:11)
[2019-02-13] MEDS: METOPROLOL TARTRATE 25 MG TAB PO SCH ×2 (09:11→20:57)
[2019-02-13] MEDS: INSULIN DETEMIR SC SCH ×2 (09:14→20:55)
[2019-02-13] MEDS: INSULIN ASPART 100 UNITS/ML 3 ML PEN SC SCH ×4 (09:15→20:56)
--- NOTE | 2019-02-13 10:11 | Hospitalist Progress Note ---
Date of Service February 13, 2019 Assessment & Plan (1) Status post lumbar surgery: -Post op L3-S1 decompression and L4-S1 fusion by Dr Cabrera on 02/11/19 because of Lumbar Spinal Stenosis with Neurogenic Claudication (Actual Procedures #1 revision decompression with bilateral medial facetectomies foraminotomies L3- 4 L4-5 L5-S1. #2 posterior spinal fusion L4-5 L5-S1. #3 placement posterior instrumentation L4-5 L5-S1. #4 interbody fusion L4-5 L5-S1. #5 placement of titanium 11 x 26 mm cage at L4-5 and 12 x 26 mm cage at L5-S1. #6 placement of locally harvested morselized autograft in the posterior lateral gutters. #7 placement infuse collagen sponge, master graft in the posterior lateral gutters and ostial amp and interbody space) -wound care and management of PANCHO drain as per orthopedics -pain medications, anti-emetics, bowel regimen -incentive spirometry Acute Blood loss anemia -Estimated blood loss from surgery is 550ml -Hemoglobin 9.1 on 02/12/19 -Hemoglobin 8.7 on 02/13/19 which shows reasonable hgb stability, continues to have PANCHO drain to the back with serosanguinous fluid (2) CAD (coronary artery disease): S/P NC 2000, S/P stent RCA and h/o in-stent restenosis -Continue metoprolol, statin, aspirin Jaw pain -02/12/19 Patient's nurse reported to hospitalist medicine consult physician that patient had acute bilateral lower jaw pain after eating meals and then with general malaise and because of patient's cardiac history, she would like consult physician to assess. When seen at the bedside, patient reports the pain has been gone and he is feeling better. denies pain of the chest or the arms. no acute shortness of breath. he did not vomit. no abdominal pain. he did not report of dizziness currently. EKG was completed and no evidence of ischemia. troponin negative x 1. labs were remarkable for low ionized calcium and calcium supplementation were given -no jaw pain reported since Hypocalcemia -02/12/19 low ionized calcium of 1.07, calcium gluconate 1000 mg x 1 given -give oral calcium with vitamin D while patient is hospitalized (3) Diastolic dysfunction: -Ejection Fraction: 43% on 08/2018 (4) Hypertension: -Continue metoprolol -blood pressure stable: Hold lisinopril for now (5) Hyperlipidemia: -Continue simvastatin (6) Diabetes mellitus, type 2: A1c: 6.4 on 01/04/2019 -Hold metformin, alogliptin -Continue Levemir -NovoLog sliding scale per protocol (7) Anxiety: -Continue fluoxetine (8) BPH (benign prostatic hyperplasia): -Continue alfuzosin DVT Prophylaxis -SCDs Patient Follows with Dr Marques Oshea [facility] for outpatient primary care Subjective Patient denies jaw pain since yesterday. denies of chest pain. no abdominal pain. no vomiting. has been able to ambulate to bathroom to urinate. no bowel movement yet since surgery. continues to have PANCHO drain to abigail back Physical Exam Eyes: PERRL, conjunctivae normal, anicteric sclerae EOM intact bilaterally ENMT: external ear and nose normal, oropharynx normal Neck: normal visual inspection Respiratory: normal respiratory effort, lungs clear to auscultation Cardiovascular: Rate/Rhythm: regular rate and regular rhythm Gastrointestinal (Abdomen): normal bowel sounds, soft, nontender, no hepatosplenomegaly Musculoskeletal: Head/Neck/Chest: normocephalic and head atraumatic PANCHO drain to the back with serosanguinous fluid Neurologic: PERRL, EOMI, accommodation nl, no face palsy, no dysarthria Psychiatric: A+Ox3, euthymic affect Results & Data Vital Signs (Past 12 Hours) Vital Signs Temp Pulse Resp BP BP Pulse Ox 02/13/19 06:56 37.2 C 91 H 18 114/62 90 02/13/19 03:22 90 131/69 02/12/19 23:13 36.5 C 81 16 124/65 94
[2019-02-13] MEDS: CALCIUM 600MG + VIT D 400 IU TAB PO SCH ×2 (11:51→21:05)
[2019-02-13] MEDS ORDERED: SODIUM CHLORIDE 0.9% 250 ML IV PRN (13:04)
--- NOTE | 2019-02-13 13:05 | Orthopedic Progress Note ---
Date of Service February 13, 2019 Assessment & Plan (1) Spinal stenosis, lumbar region with neurogenic claudication: This time we will transfuse 2 units of packed red blood cells today. Hopefully this will increase his energy and strength. We will continue to monitor his PANCHO output perhaps discharge tomorrow. Present on Admission?: Yes Subjective Patient is feeling very tired the past 2 days. He continues to deny any leg pain. Back pain controlled. Physical Exam Physical Exam: Patient is ambulate halls with a walker. Good strength testing. Results & Data Vital Signs (Past 12 Hours) Vital Signs Temp Pulse Resp BP Pulse Ox 02/13/19 06:56 37.2 C 91 H 18 114/62 90 02/13/19 03:22 90 131/69
--- NOTE | 2019-02-13 16:55 | Pharmacy Report ---
Pharmacy Glycemic Short Note 2 - Date of Service February 13, 2019 - Glycemic Short BSG Results (Last 24 hours): 02/12/19 02/12/19 02/13/19 17:06 20:31 04:45 Glucose 155 H POC Glucose 190 H 251 H 02/13/19 02/13/19 08:13 11:54 Glucose POC Glucose 181 H 175 H OUTPATIENT ANTIDIABETIC REGIMEN: * Levemir 40 units SQ BID * Metformin 1000 mg PO BID + alogliptin 25 mg PO qAM * A1c 6.7% (01/25/19) ASSESSMENT: 02/13 * Patient received 153 units of insulin yesterday * 100 units of basal * 53 units of bolus * Fasting BSG remains elevated (181), therefore I will increase doses in Lantus scale. * Post prandial BSGs also remain above goal, therefore Novolog CF and CR have been tightened. 02/12: * 73 year old T2DM male POD #1 s/p lumbar surgery * Pharmacy was consulted 02/11 PM due to severe hyperglycemia (BSG 331, 329 mg/dL) which was likely caused by pre-op dexamethasone 12 mg IV. * Bjorn was given 55 units of Levemir and a 5 unit regular IV bolus last evening. BSG improved to 179 mg/dL this AM. Bjorn was ordered his home dose of Levemir 40 units SQ BID on admission. I adjusted this mornings dose to 45 units and will order a scale for tonight. * Continue tight Novolog coverage until dexamethasone has worn off. Will loosen to CF/CR of 15/5 later today. PLAN FOR INPATIENT GLYCEMIC CONTROL: * Hold outpatient oral diabetes medications * Basal insulin * Lantus SQ per scale BID: * 40 units for BSG < 140 mg/dL * 45 units for BSG 140 - 180 mg/dL * 50 units for BSG > 180 mg/dL * Bolus insulin * NovoLog per scale ACHS or Q6hrs while NPO * Goal Range: Low 110 mg/dL - High 140 mg/dL * Correction Factor: 10 mg/dL/unit * Nutritional / Prandial insulin per carb ratio of 1 unit per 3 grams CHO consumed PLAN FOR DISCHARGE: * A1c of 6.7% is at goal * Continue home regimen on discharge
[2019-02-13] MEDS: PARoxetine HCl 20 MG TAB PO SCH (20:57)
[2019-02-13] MEDS: ALFUZOSIN HCL 10 MG TAB PO SCH (21:04)
[2019-02-13] MEDS: SIMVASTATIN 40 MG TAB PO SCH (21:04)
[2019-02-13] MEDS: DOCUSATE SODIUM/SENNA 50/8.6MG TAB PO SCH (21:05)
--- NOTE | 2019-02-14 07:33 | Hospitalist Progress Note ---
Date of Service February 14, 2019 Assessment & Plan (1) Status post lumbar surgery: -Post op L3-S1 decompression and L4-S1 fusion by Dr Cabrera on 02/11/19 because of Lumbar Spinal Stenosis with Neurogenic Claudication (Actual Procedures #1 revision decompression with bilateral medial facetectomies foraminotomies L3- 4 L4-5 L5-S1. #2 posterior spinal fusion L4-5 L5-S1. #3 placement posterior instrumentation L4-5 L5-S1. #4 interbody fusion L4-5 L5-S1. #5 placement of titanium 11 x 26 mm cage at L4-5 and 12 x 26 mm cage at L5-S1. #6 placement of locally harvested morselized autograft in the posterior lateral gutters. #7 placement infuse collagen sponge, master graft in the posterior lateral gutters and ostial amp and interbody space) -wound care and management of PANCHO drain as per orthopedics -pain medications, anti-emetics, bowel regimen -incentive spirometry Acute Blood loss anemia -Estimated blood loss from surgery is 550ml -Hemoglobin 9.1 on 02/12/19 -Hemoglobin 8.7 on 02/13/19 which shows reasonable hgb stability, continues to have PANCHO drain to the back with serosanguinous fluid. -hospitalist medicine service did not advise urgent need for blood transfusions but Patient had 2 units of PRBC on 02/13/19 from orthopedic service to improve patient's energy and strength -hospitalist medicine service ordered CBC for 02/14/19 and comprehensive metabolic panel as the repeat labs have not been drawn yet after those blood transfusions (2) CAD (coronary artery disease): S/P [place] 2000, S/P stent RCA and h/o in-stent restenosis -Continue metoprolol, statin, aspirin Jaw pain -02/12/19 Patient's nurse reported to hospitalist medicine consult physician that patient had acute bilateral lower jaw pain after eating meals and then with general malaise and because of patient's cardiac history, she would like consult physician to assess. When seen at the bedside, patient reports the pain has been gone and he is feeling better. denies pain of the chest or the arms. no acute shortness of breath. he did not vomit. no abdominal pain. he did not report of dizziness currently. EKG was completed and no evidence of ischemia. troponin negative x 1. labs were remarkable for low ionized calcium and calcium supplementation were given -no jaw pain reported since Hypocalcemia -02/12/19 low ionized calcium of 1.07, calcium gluconate 1000 mg x 1 given -give oral calcium with vitamin D while patient is hospitalized -comprehensive metabolic panel ordered for 02/14/19 (3) Diastolic dysfunction: -Ejection Fraction: 43% on 08/2018 (4) Hypertension: -Continue metoprolol -resume lisinopril (5) Hyperlipidemia: -Continue simvastatin (6) Diabetes mellitus, type 2: A1c: 6.4 on 01/04/2019 -Hold metformin, alogliptin -Continue Levemir -NovoLog sliding scale per protocol (7) Anxiety: -Continue fluoxetine (8) BPH (benign prostatic hyperplasia): -Continue alfuzosin DVT Prophylaxis -SCDs Patient Follows with Dr Marques Oshea [facility] for outpatient primary care Subjective Patient seen and examined while sitting upright in the bed. Continues to have PANCHO drain to the back. Patient reports that yesterday orthopedic service gave blood transfusions. Patient had 2 units of PRBC on 02/13/19 from orthopedic service. Patient breathing on room air. denies shortness of breath. denies abdominal pain. no chest pain. no jaw pain. no dizziness. Physical Exam Constitutional: comfortable Eyes: PERRL, conjunctivae normal, anicteric sclerae EOM intact bilaterally ENMT: external ear and nose normal, oropharynx normal Neck: normal visual inspection Respiratory: normal respiratory effort, lungs clear to auscultation Cardiovascular: Rate/Rhythm: regular rate and regular rhythm Gastrointestinal (Abdomen): normal bowel sounds, soft, nontender, no hepatosplenomegaly Musculoskeletal: Head/Neck/Chest: normocephalic and head atraumatic PANCHO drain to the back Neurologic: PERRL, EOMI, accommodation nl, no face palsy, no dysarthria Psychiatric: A+Ox3, euthymic affect Results & Data Vital Signs (Past 12 Hours) Vital Signs Temp Pulse Pulse Resp BP BP Pulse Ox 02/14/19 06:41 37 C 84 18 133/70 92 02/13/19 23:26 37.2 C 76 18 131/74 94 02/13/19 20:15 37.1 C 92 H 18 175/92 H 92 02/13/19 19:36 36.9 C 82 17 157/78 H 94
[2019-02-14 07:51] LABS: Basophils # (auto) 0.01 K/uL (0-0.2); Basophils % (auto) 0.2 %; Eosinophils # (auto) 0.07 K/uL (0-0.5); Eosinophils % (auto) 1.4 %; Hematocrit (blood only) 31.8 % (42-52); Hemoglobin 10.2 g/dL (14.0-18.0); Immature Granulocytes # (auto) 0.02 K/uL (0.00-0.02); Immature Granulocytes % (auto) 0.4 %; Lymphocytes # (auto) 0.77 K/uL (1.2-3.4); Lymphocytes % (auto) 15.3 %; Mean Corpuscular Hemoglobin 26.1 pg (25-34); Mean Corpuscular Volume 81.3 fL (80-100); Monocytes % (auto) 9.9 %; Neutrophils # (auto) 3.67 K/uL (1.4-6.5); Neutrophils % (auto) 72.8 %; Platelet Count 103 K/uL (130-400); RDW Coefficient of Variation 16.1 % (11.5-14.5); RDW Standard Deviation 46.6 fL (36.4-46.3); Red Blood Count 3.91 M/uL (4.7-6.1); White Blood Count 5.04 K/uL (4.8-10.8)
[2019-02-14 07:56] LABS: Mean Corpuscular Hgb Conc 32.1 g/dL (32-36)
[2019-02-14] MEDS: ASPIRIN 81 MG ECTAB PO SCH (08:07)
[2019-02-14] MEDS: CALCIUM 600MG + VIT D 400 IU TAB PO SCH (08:07)
[2019-02-14 08:08] LABS: BUN Creatinine Ratio 19.5 (10-20); Calcium 8.6 mg/dl (8.5-10.1); Creatinine Clr Calc Pharmacy 82.5 ml/min; Est GFR (African American) 91.2; Est GFR (Non-African American) 78.7; Potassium 3.8 mmol/L (3.5-5.1)
[2019-02-14] MEDS: METOPROLOL TARTRATE 25 MG TAB PO SCH (08:08)
[2019-02-14 08:11] LABS: Albumin Globulin Ratio 0.9 (0.9-2); Bilirubin,Total 0.9 mg/dl (0.2-1); Globulin 3.2 gm/dl (2.5-4.0); Total Protein 6.2 gm/dl (6.4-8.2)
[2019-02-14] MEDS: INSULIN DETEMIR SC SCH (08:11)
[2019-02-14] MEDS: INSULIN ASPART 100 UNITS/ML 3 ML PEN SC SCH (08:12)
[2019-02-14] MEDS ORDERED: lisinopriL 10 MG TAB PO SCH (09:00)
--- NOTE | 2019-02-14 09:27 | Discharge Summary ---
Date of Service February 14, 2019 Admission HPI Per Admitting Provider This is a 73-year-old male that presents with chronic persistent back and leg pain. After failing extensive course of nonoperative care is here for surgical intervention. Principal Diagnosis Lumbar spinal stenosis with neurogenic claudication Discharge Data Allergies Allergy/AdvReac Type Severity Reaction Status Date / Time No Known Allergies Allergy Verified 02/11/19 09:06 Consultations 02/11/19 15:16 Consult Case Management - Discharge Planning Routine Consult Hospitalist Routine Procedures Performed Operation Date: 02/11/19 10:25 Actual Procedures p L4-S1 Decompression and Fusion with Spinal Cord Monitoring(Not Applicable) - Vega Cabrera DO Ordered Studies 02/11/19 10:25 FL fluoroscopy <1hr Routine FL lumbar spine 2-3V Routine Hospital Course (1) Spinal stenosis, lumbar region with neurogenic claudication: Patient underwent lumbar decompression fusion tolerated as well as taken to orthopedic for postoperative. Postop day 1 leg symptoms improved progressive postop day #2 postop day #3 is up and ambulating PANCHO drain decreasing appropriately pain well controlled. Subsequently discharged home. Discharge orders instructions from the chart for further review. Total Time Total Time Spent Total Time Spent (In Minutes): 20 minutes Discharge Plan Discharge Items Patient Disposition: Home - Self-Care Reason For Visit: LUMBAR SPINAL STENOSIS W/O NEUROGENIC CLAUDICATION Discharge Diagnosis: Spinal stenosis with neurogenic claudication and radiculopathy Activity: Per Instructions section Non-emergency contact: Primary Care Provider Call non-emergency contact if: you have any medication questions Follow-up/Referrals: Marques Oshea DO [Primary Care Provider] - Diet: Regular Addtl Attending Provider Instructions: ACTIVITY RECOMMENDATIONS: SELF CARE INSTRUCTIONS AFTER THORACIC/LUMBAR FUSIONS 1. You may walk to your tolerance. It is good exercise for your legs and back. Expect some back and intermittent leg aches and pains. 2. You may perform "counter-top" level activities (make a sandwich, jose with a project, etc.). 3. No bending or lifting of more than 10 pounds or back twisting of any nature (roll like a log when turning in bed). 4. You may ride in a car for 20-30 minutes at a time. No driving until after your first visit with your doctor. 5. Frequent changes of position and restricting sitting to 30 minutes at a time will help limit the amount of back spasms and stiffness you may experience. 6. You may discontinue the use of ambulatory aids (cane, crutches, etc.) once your strength and confidence allow. 7. You may child protective investigator the shower and let water strike your incision when you arrive home at least once daily. Do not take a tub bath, sit in a hot tub or go into a swimming pool until after your first recheck in the office. SPECIAL CARE INSTRUCTIONS: VERY IMPORTANT TO READ AND REVIEW A. Your surgical incision has been closed with a cosmetic suture under the skin that will dissolve in about 6 weeks. In 14 days, you can use a pair of clean scissors and cut the suture that is left outside of the skin at the ends of your incision. 1. The small skin tapes can be removed 7 days after surgery if they have not fallen off by that point. 2. You may keep the wound open to air as much as possible to promote healing after post-op day number 5 unless told otherwise by your doctor. 3. If you think the wound looks like it is becoming infected (redness or worsening drainage) and/or you are experiencing fever, chill or worsening back pain and muscle spasms, contact the office so that we may evaluate you as soon as possible. B. Complications are uncommon, but please contact us if you have any signs or symptoms of: 1. wound infection (fever higher than 102.5 degrees F, redness, separation of wound, drainage, or increasing pain from the incision) 2. blood clots in legs (pain, swelling, redness and warmth in legs) 3. urinary tract infection (fever higher than 102.5 degrees F, burning upon urination or increased frequency of urination) 4. nerve problems (inability to walk on your toes or heels, numbness, loss of bowel or bladder control) 5. any other symptoms that concern you C. Please call the office at if you have any concerns or questions about your operation or recovery. D. No smoking! Smoking drastically decreases the chance of a solid fusion. E. Do not take any anti-inflammatory medications (Indocin, Advil, Motrin, Aspirin, Naprosyn, etc.) as these may inhibit the chance of a solid fusion. Tylenol is okay to take for pain. MANAGING PAIN AFTER SPINAL SURGERY 1. Narcotic medication is intended for short-term use and will be provided for surgical pain. Surgical pain usually lasts for a period of 4-6 weeks. Narcotic medication includes Percocet, Vicodin, Darvocet, Tylenol #3 or Lortab. 2. Longer-term pain is more appropriately treated with non-narcotic medication such as Tylenol ES. 3. Muscle spasm is not appropriately treated with narcotics. Muscle relaxers such as Soma, Flexeril or Skelaxin can be used along with Tylenol ES. 4. Remember that we all live with some "aches and pains". This is not unusual or uncommon after an injury or as we get older. a. Back pain is expected and may include muscle spasms for 4 to 6 weeks after surgery. The pain should gradually improve. If the pain worsens for no apparent reason, please contact the office. b. Intermittent leg pain may also be experienced and should not be concerned about unless it worsens for no apparent reason. If so, please contact the office. 5. We will provide appropriate medication within the normal guidelines of their prescribed use. We will also be very cautious and aware of potential abuse and extended duration of patients' medication needs. a. Pain medications are for your comfort and to assist with sleep and rest so that the tissue can heal. They are not provided in order to return to normal activity and should not be used through the day. To do so or worsening pain at night can result from ongoing tissue damage and development of tolerance to the prescribed medicine. 6. Please allow 2-3 days to process refills. Prescriptions will not be mailed but must be picked up at the office. FOLLOW UP VISIT: Keep your scheduled follow-up appointment. Any questions, please call the office at . Pending Studies at Discharge: No Stand-Alone Forms: [facility] Neocleus, Opioid Pain Management Medications and DC Order Prescriptions: New tramadol 50 mg Tablet 50 mg PO Q4H PRN (Reason: Pain, Moderate) Qty: 30 RF: 0 oxycodone 5 mg Tablet 5 mg PO Q4H PRN (Reason: Pain, Severe) Qty: 30 RF: 0 Continued hydrocodone-acetaminophen 5-325 mg tablet 1 tab PO Q8H Qty: 30 RF: 0 lancets MS RF: 0 OneTouch Ultra Blue Test Strip strip .ROUTE .MEDSUPPLY Qty: 10 RF: 0 blood-glucose meter [OneTouch Ultra2 Meter] kit .ROUTE .MEDSUPPLY Qty: 1 RF: 0 alprazolam 1 mg Tablet 1 mg PO QID PRN (Reason: Anxiety) RF: 0 simvastatin 80 mg Tablet 40 mg PO HS RF: 0 aspirin 81 mg Tablet,Delayed Release (Dr/Ec) 81 mg PO QAM RF: 0 cyanocobalamin (vitamin B-12) 1,000 mcg/mL Solution 500 mcg IM MONTHLY RF: 0 metformin 1,000 mg Tablet 1,000 mg PO BID RF: 0 lisinopril 10 mg Tablet 10 mg PO QAM RF: 0 metoprolol tartrate 50 mg Tablet 25 mg PO BID RF: 0 paroxetine HCl 40 mg Tablet 40 mg PO HS RF: 0 alfuzosin 10 mg Tablet Extended Release 24 Hr 10 mg PO HS RF: 0 Levemir U-100 Insulin 100 unit/mL Solution 40 unit SUBCUT BID RF: 0 alogliptin 25 mg Tablet 25 mg PO QAM RF: 0 Discharge Orders: Discharge Order (Routine); Ordered 02/14/19 Ordered By: Vega Ahn/Other Patient Handouts: Surgery Prevent DVT After Admission Data Admit Date/Time: 02/11/19 12:29 Attending Provider: Vega Cabrera Admit Provider: Vega Cabrera Primary Care Provider: Marques Oshea Other Providers: Jt Duval ; Piotr Chavez Other Interventions: Discharge Summary Assessment (RN) Last Done: 02/14/19 09:21
--- NOTE | 2019-02-14 09:44 | Anesthesiology Progress Note ---
Date of Service February 14, 2019 Anesthesia Post Procedure Vital Signs Vital Signs: Temp Pulse Pulse Pulse Resp BP BP 02/14/19 09:21 37 C 78 84 18 133/70 02/14/19 06:41 37 C 84 18 133/70 02/13/19 23:26 37.2 C 76 18 131/74 02/13/19 20:15 37.1 C 92 H 18 175/92 H 02/13/19 19:36 36.9 C 82 17 157/78 H 02/13/19 18:01 36.9 C 83 17 130/71 02/13/19 17:25 36.9 C 78 17 134/75 02/13/19 17:09 36.7 C 77 18 121/75 02/13/19 16:51 36.7 C 78 18 131/67 02/13/19 16:40 36.8 C 78 18 125/85 02/13/19 15:02 37.1 C 80 17 146/79 H 02/13/19 14:32 37.1 C 83 18 132/78 02/13/19 14:31 36.8 C 81 18 125/74 02/13/19 14:17 37 C 82 18 137/76 02/13/19 13:59 36.9 C 84 18 137/75 BP Pulse Ox 02/14/19 09:21 114/62 92 02/14/19 06:41 92 02/13/19 23:26 94 02/13/19 20:15 92 02/13/19 19:36 94 02/13/19 18:01 96 02/13/19 17:25 96 02/13/19 17:09 94 02/13/19 16:51 93 02/13/19 16:40 93 02/13/19 15:02 93 02/13/19 14:32 94 02/13/19 14:31 95 02/13/19 14:17 96 02/13/19 13:59 94 Notes Mental Status: alert / awake / arousable and participated in evaluation Nausea / Vomiting: adequately controlled Pain: adequately controlled Airway Patency, RR, SpO2: stable & adequate BP & HR: stable & adequate Hydration State: stable & adequate
== END 2019-02-14 11:10 | disposition home or self-care (01) | DRG 454 ==
LOC: ASU 08:41 → 3E 12:29

== ENCOUNTER 2023-03-08 13:34 | Inpatient (IN) ==
--- NOTE | 2023-03-08 14:00 | ED Triage Note ---
Date of Service March 08, 2023 History of Present Illness This patient was briefly evaluated while in triage. An abbreviated physical exam was performed. This patient is a 77-year-old Male who presents to the ED for evaluation of has stomach cancer and new bladder mass urinating blood clots supposed to have surgery tomorrow with Dr. Harding but couldn't wait feels weak Physical Exam GENERAL: NAD CARDIOVASCULAR: RRR RESPIRATORY: CTA ABDOMEN: BS x 4. Mild suprapubic tenderness to palpation. Initial orders for labs and / or imaging were placed and patient was placed in the waiting area until a bed is available. Please see further documentation for the full ED course. MDM / Impression Impression Impression: Hematuria, Suprapubic abdominal pain
[2023-03-08 14:41] LABS: Hematocrit (blood only) 36.5 % (42.0-52.0); Hemoglobin 10.5 g/dl (14.0-18.0); Mean Corpuscular Hemoglobin 22.8 pg (25.0-34.0); Mean Corpuscular Hgb Conc 28.8 g/dL (32.0-36.0); Mean Corpuscular Volume 79.2 fL (80.0-100.0); Mean Platelet Volume 9.1 fL (9.4-12.4); Platelet Count 164 K/uL (130-400); RDW Standard Deviation 50.4 fL (36.4-46.3); Red Blood Count 4.61 M/uL (4.70-6.10); White Blood Count 4.88 K/ul (4.8-10.8)
[2023-03-08 14:49] LABS: Alanine Aminotransferase 17 U/L (7-52); Albumin Globulin Ratio 1.4 (0.9-2); Albumin Level 4.4 gm/dl (3.4-5.0); Alkaline Phosphatase 92 U/L (34-104); Anion Gap 10 (3-11); Aspartate Aminotransferase 19 U/L (13-39); BUN Creatinine Ratio 13.3 (10-20); Bilirubin,Total 0.5 mg/dl (0.2-1.0); Blood Urea Nitrogen 19 mg/dl (6-23); Calcium 9.8 mg/dl (8.6-10.3); Carbon Dioxide 25 mmol/L (21-32); Chloride 105 mmol/L (98-107); Est GFR (African American) 54.7 ml/min; Est GFR (Non-African American) 47.2 ml/min; Globulin 3.1 gm/dl (2.5-4.0); Glucose 121 mg/dl (70-99(Fasting)); Potassium 4.4 mmol/L (3.5-5.1); Sodium 140 mmol/L (136-145); Total Protein 7.5 gm/dl (6.0-8.3)
[2023-03-08 14:53] LABS: Appearance Urine Turbid (Clear); Bilirubin Urine Negative (Negative); Blood Urine 3+ (Negative); Color Urine Red; Glucose Urine UA 2+ (Negative); Ketones Urine Trace (Negative); Leukocyte Esterase Urine Negative (Negative); Nitrite Urine Negative (Negative); Protein Urine 3+ (Negative); Specific Gravity Urine 1.025 (1.000-1.030); Urobilinogen Urine Negative (Negative)
[2023-03-08 14:56] LABS: Basophils # (auto) 0.03 K/uL (0.00-0.20); Basophils % (auto) 0.6 %; Eosinophils # (auto) 0.14 K/uL (0.00-0.50); Eosinophils % (auto) 2.9 %; Immature Granulocytes # (auto) 0.01 K/uL (0.01-0.20); Immature Granulocytes % (auto) 0.2 %; Lymphocytes # (auto) 0.99 K/uL (1.20-3.40); Lymphocytes % (auto) 20.3 %; Monocytes # (auto) 0.43 K/uL (0.11-0.59); Monocytes % (auto) 8.8 %; Neutrophils # (auto) 3.28 K/uL (1.40-6.50); Neutrophils % (auto) 67.2 %; Polychromasia 1+
[2023-03-08 14:56] LABS: Epithelial Cell Urine 0-5 /lpf (0-5); RBC Urine >30 /hpf (0-4); WBC Urine >30 /hpf (0-5)
[2023-03-08 14:57] LABS: Bacteria Urine Negative (Negative)
[2023-03-08 15:20] LABS: Prothrombin Time 10.8 Seconds (9.0-12.0)
[2023-03-08] MEDS ORDERED: ONDANSETRON INJ 2 MG/ML 2 ML VIAL IV STA (18:13)
--- NOTE | 2023-03-08 18:13 | Emergency Department Note ---
Impression & Plan Hematuria, Suprapubic abdominal pain ED Provider Note NAME: LAURENT SOLER AGE: 77 SEX: Male INFORMANT: Patient ED PROVIDER(S): Rodrigue Finley MD CHIEF COMPLAINT: Hematuria PLAN: Disposition: Admitted Outpatient prescription management: none Referral: None MEDICAL DECISION MAKING: Patient presented because of abdominal pain and hematuria. Patient pending surgery with Dr. Harding in the a.m. He was uncomfortable. He was treated with IV Dilaudid and Zofran. His laboratory testing revealed a mild anemia. Renal function within normal limits. Patient had red and white cells on urinalysis. No prior urinalysis for comparison. Patient was empirically given IV Rocephin. He had CT imaging performed and there was dense material noted in the bladder. This is likely consistent with his passing clots. Consultation was made with urology. Discussed case with Russ Wheat PA-C who is covering for Dr. Gomez. He did come to the ER for evaluation of the patient. He recommended hematuria catheter and bladder irrigation. He asked for hospitalist to admit the patient. Consultation was made with Dr. Marcos Schneider of the [facility] service. Patient was evaluated in the ER for further management. Care/management discussed with: Discussed with the counter caser Level of care consideration(s): After review of the information above and other included data, I feel the patient requires escalation of care to admission. Triage Nursing notes: reviewed and agree them. Vital Signs: reviewed and remarkable for no significant abnormalities Additional History obtained from: none Chronic Medical/Social Conditions affecting care: Gastric cancer, diabetes Prior/ Outside/ External records reviewed: none Differential Diagnosis: Renal colic, UTI, appendicitis, diverticulitis, mesenteric ischemia, aortic pathology, infections, inflammatory bowel disease, PUD, biliary pathology, as well as other pathologies. Diagnostics, independently interpreted by me: ECG: none Cardiac Monitoring: Cardiac monitoring ordered by me: The patient was placed on continuous cardiac monitoring and observed. It revealed a normal sinus rhythm at 61 beats per minute without ectopy or evidence of dysrhythmia. Medical decision rules: none Imaging studies: CT imaging was performed of the abdomen pelvis. Patient was found to have his material in the bladder concerning for hematuria as well as findings consistent with cystitis. I refer you to the EMR for further details. HPI: 77 year old Male arrives for evaluation of hematuria. This has been as issue recently and he see [facility] urology. Scheduled for surgery tomorrow with Dr. Harding. Pain developed in the suprapubic region and became severe, at 10/10. Passing blood clots. Also notes weakness. Pt denies LOC, headache, fevers, chills, diaphoresis, visual changes, neck pain, chest pain, breathing difficulties, nausea, vomiting, back pain, melena, hematochezia, lymphadenopathy, rash, or other complaints. PAST MEDICAL HISTORY: See Below, stomach CA, CHF PAST SURGICAL HISTORY: See Below, SOCIAL HISTORY: See Below, HOME MEDICATIONS: See Below ALLERGIES: See Below VITALS: See Below PHYSICAL EXAMINATION: GENERAL: Awake, alert, uncomfortable-appearing, in no distress HENT: Normocephalic, atraumatic. Oropharynx unremarkable. EYES: Normal conjunctiva. Sclera non-icteric. NECK: Inspection normal. Non-tender. Supple. No nuchal rigidity. FROM. No masses. RESPIRATORY: Clear to auscultation. No wheezes. No rales. Normal respiratory effort. CARDIAC: Normal rate. Normal rhythm. No murmurs. No rubs. Extremities warm and well perfused. Pulses equal. No JVD. GI: Soft, non-distended. Suprapubic tenderness to palpation. No rebound or guarding. No masses. RECTAL: Deferred. MUSCULOSKELETAL: Atraumatic. Chest examination reveals no tenderness. The back is symmetrical on inspection without obvious abnormality. There is no CVA tenderness to palpation. No joint edema. LOWER EXTREMITIES: Calves are equal size bilaterally and non-tender. No edema. No discoloration. NEURO: Normal sensorium. No sensory or motor deficits noted. SKIN: No rash or jaundice noted. PROCEDURES: none CRITICAL CARE: none OBSERVATION NOTE: none Past Med/Surg History Medical History Bladder mass Stomach cancer Iron deficiency anemia PAF (paroxysmal atrial fibrillation) follows with Dr. Zaldivar, was on eliquis/metoprolol, pt states was taken off eliquis in Dec GERD (gastroesophageal reflux disease) CHF (congestive heart failure) EF 55-60% History of COVID-19 09/2019--mild symptoms, no symptoms now BPH (benign prostatic hyperplasia) Morbid obesity CAD (coronary artery disease) IMI, RCA BMS x2, in stent re-stenoses, 1999; no ischemia on Lexiscan May 2022 follows with [facility], Dr. Zaldivar Chronic back pain Diabetes mellitus, type 2 IDDM Anxiety Myocardial Infarction 2002--had heart cath, follows with Dr. Zaldivar Hypertension Hyperlipidemia Surgical History History of esophagogastroduodenoscopy (EGD) History of back surgery 1988 > lumbar History of lumbar spinal fusion (~01/2019) 2012 History of cholecystectomy History of colonoscopy last 08/26/22 @ [facility] History of cardiac cath 2002, S ulisses - stent x 1 Family History Father Family history of diabetes mellitus Brother Family history of diabetes mellitus Mother Family history of diabetes mellitus Sister Family history of diabetes mellitus Son Hypertension Other No family history of adverse response to anesthesia Social History Smoking Status: Never smoker Tobacco Type: Cigarettes Second Hand Exposure: No; Do You Dip or Chew Tobacco: No; Hx Alcohol Use: No Hx Substance Use: No Preferred Language: Lithuanian Communication Ability: Effective Foundry Operator Required: Voice Beliefs That Will Affect Care: None marital status: Current Living Situation: Family Feels Safe at Home: Yes Assistive Devices: Cane and Glasses Allergies Allergies Allergy/AdvReac Type Severity Reaction Status Date / Time apixaban [From Eliquis] Allergy Intermediate Rash Verified 03/08/23 18:09 semaglutide [From Ozempic] Allergy Intermediate Gastrointestinal Verified 03/08/23 18:09 Upset Home Meds Home Medications Medication Instructions Recorded Confirmed simvastatin 80 mg tablet 40 mg PO HS 01/20/19 03/08/23 blood sugar diagnostic (OneTouch #10 ea 01/28/19 01/21/23 Ultra Blue Test Strip) blood-glucose meter (Starboard Storage SystemsTouch #1 ea 01/28/19 01/21/23 Ultra2 Meter kit) aspirin 81 mg capsule 81 mg PO QAM 03/13/22 03/08/23 empagliflozin 10 mg tablet 10 mg PO HS 08/15/22 03/08/23 (Jardiance) furosemide 40 mg tablet (Lasix) 40 mg PO DAILY PRN Edema 08/15/22 03/08/23 insulin glargine 100 unit/mL 40 unit subcut QAM 08/15/22 03/08/23 subcutaneous solution cyanocobalamin (vitamin B-12) 1,000 mcg PO QAM 01/21/23 03/08/23 1,000 mcg tablet (Vitamin B-12) metformin 1,000 mg tablet 1,000 mg PO BID 01/21/23 03/08/23 ferrous sulfate 220 mg/5 mL oral 220 mg PO Q OTHER DAY 02/27/23 03/08/23 elixir cholecalciferol (vitamin D3) 25 25 mcg PO DAILY 03/08/23 03/08/23 mcg (1,000 unit) capsule (Vitamin D3) metoprolol succinate 50 mg 50 mg PO QAM 03/08/23 03/08/23 tablet,extended release 24 hr paroxetine HCl 40 mg tablet 40 mg PO DAILY 03/08/23 03/08/23 Previous Rx's Medication Instructions Recorded omeprazole 40 mg capsule,delayed 40 mg PO BID #60 caps 01/23/23 release Results & Data (ED) Vital Signs Vital Signs - 24 hr 03/08/23 13:59 03/08/23 17:11 03/08/23 17:11 Temperature 36.6 C Temperature Source Temporal Artery Scan Pulse Rate 81 Pulse Rate [Apical] 100 H Respiratory Rate 20 20 Respiratory Effort / Characteristics Non-Labored Non-Labored Respiratory Depth Normal Normal Blood Pressure 149/87 H Blood Pressure [Right Arm] 172/82 H Blood Pressure Mean 107 Blood Pressure Mean [Right Arm] 112 Pulse Oximetry 98 97 98 Oxygen Delivery Method Room Air Room Air Room Air Sepsis Recent Fever Within 48 Hours No Sepsis New/Unexplained Change in Mental Status No Sepsis Action Taken by Nursing No Action Required 03/08/23 17:17 03/08/23 19:36 Temperature Temperature Source Pulse Rate 76 Pulse Rate [Apical] 87 Respiratory Rate 16 Respiratory Effort / Characteristics Respiratory Depth Blood Pressure Blood Pressure [Right Arm] 146/93 H Blood Pressure Mean Blood Pressure Mean [Right Arm] 110 Pulse Oximetry Oxygen Delivery Method Sepsis Recent Fever Within 48 Hours Sepsis New/Unexplained Change in Mental Status Sepsis Action Taken by Nursing Laboratory Data 03/08/23 14:21 03/08/23 14:21 Lab Results 03/08/23 03/08/23 Range/Units 14:15 14:21 WBC 4.88 (4.8-10.8) K/ul RBC 4.61 L (4.70-6.10) M/uL Hgb 10.5 L (14.0-18.0) g/dl Hct 36.5 L (42.0-52.0) % MCV 79.2 L (80.0-100.0) fL MCH 22.8 L (25.0-34.0) pg MCHC 28.8 L (32.0-36.0) g/dL RDW Std Deviation 50.4 H (36.4-46.3) fL RDW Coeff of Stacia 18.0 H (11.5-14.5) % Plt Count 164 (130-400) K/uL MPV 9.1 L (9.4-12.4) fL Immature Gran % (Auto) 0.2 % Neut % (Auto) 67.2 % Lymph % (Auto) 20.3 % Putnam % (Auto) 8.8 % Eos % (Auto) 2.9 % Baso % (Auto) 0.6 % Neut # (Auto) 3.28 (1.40-6.50) K/uL Lymph # (Auto) 0.99 L (1.20-3.40) K/uL Putnam # (Auto) 0.43 (0.11-0.59) K/uL Eos # (Auto) 0.14 (0.00-0.50) K/uL Baso # (Auto) 0.03 (0.00-0.20) K/uL Immature Gran # (Auto) 0.01 (0.01-0.20) K/uL Polychromasia 1+ PT 10.8 (9.0-12.0) Seconds INR 1.0 (0.9-1.1) Sodium 140 (136-145) mmol/L Potassium 4.4 (3.5-5.1) mmol/L Chloride 105 (98-107) mmol/L Carbon Dioxide 25 (21-32) mmol/L Anion Gap 10 (3-11) BUN 19 (6-23) mg/dl Creatinine 1.43 H (0.6-1.4) mg/dl Est Cr Clr Drug Dosing Not Reportable Est GFR ( Amer) 54.7 ml/min Est GFR (Non-Af Amer) 47.2 ml/min BUN/Creatinine Ratio 13.3 (10-20) Glucose 121 H (70-99(Fasting)) mg/dl Calcium 9.8 (8.6-10.3) mg/dl Total Bilirubin 0.5 (0.2-1.0) mg/dl AST 19 (13-39) U/L ALT 17 (7-52) U/L Alkaline Phosphatase 92 (34-104) U/L Total Protein 7.5 (6.0-8.3) gm/dl Albumin 4.4 (3.4-5.0) gm/dl Globulin 3.1 (2.5-4.0) gm/dl Albumin/Globulin Ratio 1.4 (0.9-2) Urine Color Red Urine Appearance Turbid A (Clear) Urine pH 7.0 (4.5-7.5) Ur Specific Mascot 1.025 (1.000-1.030) Urine Protein 3+ H (Negative) Urine Glucose (UA) 2+ H (Negative) Urine Ketones Trace H (Negative) Urine Blood 3+ H (Negative) Urine Nitrite Negative (Negative) Urine Bilirubin Negative (Negative) Urine Urobilinogen Negative (Negative) Ur Leukocyte Esterase Negative (Negative) Urine RBC >30 H (0-4) /hpf Urine WBC >30 H (0-5) /hpf Ur Epithelial Cells 0-5 (0-5) /lpf Urine Bacteria Negative (Negative) Blood Type O Negative Antibody Screen NEGATIVE Administered Medications Pantoprazole Sodium (Pantoprazole 40 Mg Tab) 40 mg PO BID NIMESH Stop: 04/07/23 22:38 Last Admin: 03/08/23 23:42 Dose: 40 mg Documented By: CARLITOS Simvastatin (Simvastatin 40 Mg Tab) 40 mg PO HS NIMESH Stop: 04/07/23 22:38 Last Admin: 03/08/23 23:42 Dose: 40 mg Documented By: CARLITOS Discontinued Medications Hydromorphone HCl (Hydromorphone Inj 0.5 Mg/0.5 Ml Syr) 0.25 mg IV Q15M PRN PRN Reason: Pain Stop: 03/22/23 18:12 Last Admin: 03/08/23 22:06 Dose: 0.25 mg Documented By: Admin: 03/08/23 19:09 Dose: 0.25 mg Documented By: Admin: 03/08/23 18:36 Dose: 0.25 mg Documented By: JOHN Ceftriaxone Sodium (Rocephin) 2,000 mg in 50 mls @ 100 mls/hr IV NOW STA Stop: 03/08/23 19:55 Last Infusion: 03/08/23 20:55 Dose: Infused Documented By: Admin: 03/08/23 19:30 Dose: 100 mls/hr Documented By: PRECIOUS Lorazepam 0.5 mg/ Syringe 0.5 mls @ 2 mls/min IV NOW STA Stop: 03/08/23 21:06 Last Admin: 03/08/23 21:18 Dose: Not Given Documented By: MINGO Lorazepam (Lorazepam 1 Mg/1 Ml Syr Ed Inj Use) Confirm Administered Dose 1 mg .ROUTE .STK-MED ONE Stop: 03/08/23 21:15 Last Admin: 03/08/23 21:18 Dose: 0.5 mg Documented By: MINGO Ondansetron HCl (Ondansetron Inj 2 Mg/Ml 2 Ml Vial) 4 mg IV NOW STA Stop: 03/08/23 18:14 Last Admin: 03/08/23 18:36 Dose: 4 mg Documented By: JOHN Imaging Data Radiologist's Impression: Abdomen/Pelvis CT 03/08/23 18:[address] WITHOUT CONTRAST CT DOSE: 1334.64 mGy.cm HISTORY: suprapubic abd pain, hematuria TECHNIQUE: Multiaxial CT images of the abdomen and pelvis were performed without contrast. A dose lowering technique was utilized adhering to the principles of ALARA. COMPARISON STUDY: Abdomen and pelvis CT 01/30/2023. FINDINGS: The lung bases are clear. No pneumoperitoneum. No pneumatosis. Lumbar spinal fusion hardware is again noted. No suspicious lytic are blastic osseous lesions. Subendocardial fat deposition within the left ventricle consistent with an old infarct the heart remains mildly enlarged. A 3.4 cm soft tissue density within the body of the stomach best seen on image 64. This could represent a gastric mass. A small fat-containing umbilical hernia. The gallbladder surgically absent. The unenhanced liver, pancreas, spleen, and adrenal glands are unremarkable. Bilateral renal hypodense lesions are again noted. These are incompletely characters on this noncontrast study but favor cysts. No renal or ureteral stones. No hydronephrosis. 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 There is also stable 3 cm infrarenal abdominal aortic aneurysm. No retroperitoneal or pelvic lymphadenopathy. Hyperdense material within the bladder consistent with blood products in the setting of hematuria. There appears a 3.5 cm filling defects within the left posterior bladder wall near the ureteral orifice. This likely corresponds to the patient's known bladder mass. Suboptimal evaluation for bowel pathology due to the lack of intravenous and oral contrast. However, there is no definite bowel wall thickening or obstruction. Mild fat stranding adjacent to the bladder. Normal appendix. IMPRESSION: 1. Hyperdense material within the bladder consistent with blood products in the setting of hematuria. 2. There is a 3.5 cm left posterior bladder wall mass again noted. 3. No hydronephrosis. 4. Mild fat stranding surrounding the bladder. This could represent a cystitis. 5. A 3.4 cm soft tissue density within the body of the stomach. This may represent a gastric mass. Endoscopy recommended for further evaluation. 6. Additional findings as described above. ACT 112: Negative or not required by law. Electronically signed by: Mayur Mackey M.D. 03/08/2023 7:33 PM Discharge Plan Visit Data Chief Complaint: Hematuria Stated Complaint: HEMATURIA, WEAKNESS ED Provider: Rodrigue Finley Discharge Problem: Hematuria, Suprapubic abdominal pain Patient Disposition: Admitted As Inpatient Discharge Instructions Interventions: ED Discharge Assessment Last Done: 03/08/23 22:40
[2023-03-08] MEDS: HYDROmorphone INJ 0.5 MG/0.5 ML SYR IV PRN ×3 (18:36→22:06)
[2023-03-08] MEDS ORDERED: cefTRIAXone SODIUM 2,000 MG/50 ML BAG IV STA (19:26)
--- NOTE | 2023-03-08 19:36 | CT Scan Report ---
ABDOMEN AND PELVIS CT WITHOUT CONTRAST CT DOSE: 1334.64 mGy.cm HISTORY: suprapubic abd pain, hematuria TECHNIQUE: Multiaxial CT images of the abdomen and pelvis were performed without contrast. A dose lo wering technique was utilized adhering to the principles of ALARA. COMPARISON STUDY: Abdomen and pelvis CT 01/30/2023. FINDINGS: The lung bases are clear. No pneumoperitoneum. No pneumatosis. Lumbar spinal fusion hardwar e is again noted. No suspicious lytic are blastic osseous lesions. Subendocardial fat deposition with in the left ventricle consistent with an old infarct the heart remains mildly enlarged. A 3.4 cm soft tissue density within the body of the stomach best seen on image 64. This could represent a gastric mass. A small fat-containing umbilical hernia. The gallbladder surgically absent. The unenhanced live r, pancreas, spleen, and adrenal glands are unremarkable. Bilateral renal hypodense lesions are again noted. These are incompletely characters on this noncontrast study but favor cysts. No renal or uret eral stones. No hydronephrosis. 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 There is also sta ble 3 cm infrarenal abdominal aortic aneurysm. No retroperitoneal or pelvic lymphadenopathy. Hyperden se material within the bladder consistent with blood products in the setting of hematuria. There appe ars a 3.5 cm filling defects within the left posterior bladder wall near the ureteral orifice. This l ikely corresponds to the patient's known bladder mass. Suboptimal evaluation for bowel pathology due to the lack of intravenous and oral contrast. However, there is no definite bowel wall thickening or obstruction. Mild fat stranding adjacent to the bladder. Normal appendix. IMPRESSION: 1. Hyperdense material within the bladder consistent with blood products in the setting of hematuria. 2. There is a 3.5 cm left posterior bladder wall mass again noted. 3. No hydronephrosis. 4. Mild fat stranding surrounding the bladder. This could represent a cystitis. 5. A 3.4 cm soft tissue density within the body of the stomach. This may represent a gastric mass. En doscopy recommended for further evaluation. 6. Additional findings as described above. ACT 112: Negative or not required by law. Electronically signed by: Mayur Mackey M.D. 03/08/2023 7:33 PM
--- NOTE | 2023-03-08 19:38 | History & Physical Report ---
Date of Service March 08, 2023 Assessment & Plan (1) Hematuria: Plan: Patient passing blood clots in urine x2 weeks with acute worsening last night on 03/07 UA positive +3 blood Hgb 10.5 and Hct 36.5 on arrival BUN 19, Cr 1.43 (Baseline 1.6), eGFR 47.2 Abdomen/pelvis CT revealed 3.5 cm left posterior bladder wall mass Patient is still producing some urine with blood clots, however he reports it is severely painful Patient will receive Mcmanus catheter and bladder irrigation in the ED Scheduled for surgery with Dr. Harding tomorrow morning 03/09 for suspected bladder cancer Keep n.p.o. Continuous telemetry monitoring Hold aspirin Rocephin 2000 mg given in the ED Continue Rocephin 2000 mg IV q24h in the perioperative period Appreciate urology consult A.m. CBC, BMP (2) Suprapubic abdominal pain: Plan: 02/03 at worst Patient received hydromorphone 0.25 mg x 2 in the ED Acetaminophen 1000 mg IV q8h as needed for pain 1-3 Hydromorphone 0.5 mg IV q2h as needed for pain 4-6 Hydromorphone 1.0 mg IV q2h as needed for pain 7-10 We will reevaluate pain following Mcmanus placement, bladder irrigation (3) Diabetes mellitus, type 2: Plan: Last A1c 4.8% on 12/19/2021 Glucose 1 3 on arrival Hold metformin, Jardiance Patient normally takes insulin glargine 40u SQ QAM; last taken morning of 03/08 Hold basal insulin prior to urologic procedure; continue with SSI and Lantus following procedure T2DM diet Adjust regimen as needed AM A1c (4) Chronic diastolic CHF (congestive heart failure): Plan: Last echo on 05/20/2022 showed LVEF of 55-60% Hold Lasix (5) PAF (paroxysmal atrial fibrillation): Plan: Patient not currently on anticoagulation Rate controlled; continue metoprolol (6) Stomach cancer: Plan: Dx in January 2023 (7) Hypertension: Plan: BP 146/93 at time of admission Continue metoprolol (8) CAD (coronary artery disease): Plan: IMI, RCA BMS x2 No ischemia on Lexiscan 05/2022 (9) Hyperlipidemia: Plan: Continue simvastatin (10) Anxiety: Plan: Continue paroxetine after procedure Plan Disposition: Admit to [facility] telemetry Full code Keep n.p.o. prior to procedure; then AHA/T2DM diet VTE PPx: SCDs (hold chemical DVT PPx in setting of gross hematuria and urologic intervention) History of Present Illness Chief Complaint: Hematuria Primary Care Provider: Sherice Weathres MD Bjorn is a 77-year-old male with PMH of stomach cancer, T2DM, anxiety, CAD, HLD, HTN, MT, BPH, paroxysmal atrial fibrillation, vertigo, orthostatic hypotension, and CHF. He presented for blood clots in his urine. He reports that he is scheduled for surgery with Dr. Harding tomorrow morning on 03/09, but could not wait due due to worsening suprapubic pain. The patient has been hematuria x2 weeks. However, it acutely worsened last night on 03/08. He endorses 10/10 sharp intermittent that builds up in intensity q15m. The pain lasts for 5-10 minutes at a time. No radiation to the legs, upper abdomen, or back. No flank pain. He did not take any pain medication at home. He reports that urination alleviates the pain; so to standing. Patient was seen by urology in the ED, who recommended Mcmanus catheter and bladder irrigation, and for the patient to be admitted overnight. The patient took his morning medications. Hypertension at 172/82; otherwise, vitals stable at time of admission. ED course: Rocephin 2000 mg IV Hydromorphone 0.25 mg IV x2 Zofran 4 mg IV ROS: Patient endorses hematuria, passing blood clots, suprapubic pain. Patient denies fever, chills, sweats, CP, SOB, pleuritic CP, N/V/D, back pain, saddle anesthesia, and numbness/tingling/pain in the legs. No hx of kidney stones, DVT/PE Allergies Allergy/AdvReac Type Severity Reaction Status Date / Time apixaban [From Eliquis] Allergy Intermediate Rash Verified 03/08/23 18:09 semaglutide [From Ozempic] Allergy Intermediate Gastrointestinal Verified 03/08/23 18:09 Upset Home Medications Medication Instructions Recorded Confirmed Type simvastatin 80 mg tablet 40 mg PO HS 01/20/19 03/08/23 History blood sugar diagnostic (OneTouch #10 ea 01/28/19 01/21/23 History Ultra Blue Test Strip) blood-glucose meter (OneTouch #1 ea 01/28/19 01/21/23 History Ultra2 Meter kit) aspirin 81 mg capsule 81 mg PO QAM 03/13/22 03/08/23 History empagliflozin 10 mg tablet 10 mg PO HS 08/15/22 03/08/23 History (Jardiance) furosemide 40 mg tablet (Lasix) 40 mg PO DAILY PRN Edema 08/15/22 03/08/23 History insulin glargine 100 unit/mL 40 unit subcut QAM 08/15/22 03/08/23 History subcutaneous solution cyanocobalamin (vitamin B-12) 1,000 mcg PO QAM 01/21/23 03/08/23 History 1,000 mcg tablet (Vitamin B-12) metformin 1,000 mg tablet 1,000 mg PO BID 01/21/23 03/08/23 History omeprazole 40 mg capsule,delayed 40 mg PO BID #60 caps 01/23/23 03/08/23 Rx release ferrous sulfate 220 mg/5 mL oral 220 mg PO Q OTHER DAY 02/27/23 03/08/23 History elixir cholecalciferol (vitamin D3) 25 25 mcg PO DAILY 03/08/23 03/08/23 History mcg (1,000 unit) capsule (Vitamin D3) metoprolol succinate 50 mg 50 mg PO QAM 03/08/23 03/08/23 History tablet,extended release 24 hr paroxetine HCl 40 mg tablet 40 mg PO DAILY 03/08/23 03/08/23 History Past Med/Surg History Medical History Bladder mass Stomach cancer Iron deficiency anemia PAF (paroxysmal atrial fibrillation) follows with Dr. Zaldivar, was on eliquis/metoprolol, pt states was taken off eliquis in Dec GERD (gastroesophageal reflux disease) CHF (congestive heart failure) EF 55-60% History of COVID-19 09/2019--mild symptoms, no symptoms now BPH (benign prostatic hyperplasia) Morbid obesity CAD (coronary artery disease) IMI, RCA BMS x2, in stent re-stenoses, 1999; no ischemia on Lexiscan May 2022 follows with [place] [facility], Dr. Zaldivar Chronic back pain Diabetes mellitus, type 2 IDDM Anxiety Myocardial Infarction 2002--had heart cath, follows with Dr. Zaldivar Hypertension Hyperlipidemia Surgical History History of esophagogastroduodenoscopy (EGD) History of back surgery 1988 > lumbar History of lumbar spinal fusion (~01/2019) 2012 History of cholecystectomy History of colonoscopy last 08/26/22 @ [facility] History of cardiac cath 2002, [facility] - stent x 1 Family History Father Family history of diabetes mellitus Brother Family history of diabetes mellitus Mother Family history of diabetes mellitus Sister Family history of diabetes mellitus Son Hypertension Other No family history of adverse response to anesthesia Social History Smoking Status: Never smoker Tobacco Type: Cigarettes Second Hand Exposure: No; Do You Dip or Chew Tobacco: No; Hx Alcohol Use: No Hx Substance Use: No Preferred Language: Belarusian Communication Ability: Effective Main Line Assembler Required: Voice Beliefs That Will Affect Care: None marital status: Current Living Situation: Family Feels Safe at Home: Yes Assistive Devices: Cane and Glasses Review of Systems Review of Systems: See HPI above Physical Exam Physical Exam: General: Patient is in acute distress due to suprapubic pain; he stands every 10 minutes, gasping and pain; non-toxic appearing; well-nourished; cooperative HEENT: normocephalic, atraumatic; no scleral icterus; PERRLA w/ EOMs intact; moist mucus membrane; vision and hearing grossly intact Neck: supple; no JVD; no lymphadenopathy; trachea midline Skin: warm, dry without signs of tenting; no cyanosis; no rashes, bruising, lesions, or erythema noted CV: chest wall NTP; RRR; S1/S2 normal; no murmurs/rubs/gallops; pulses intact and symmetric at radial, DP, and PT Lungs: no acute respiratory distress; symmetrical chest wall expansion; clear breath sounds across all lung mcnamara w/o adventitious sounds; no wheezing ABD: Soft, NTP; BS present in all 4 quadrant; no rebound/guarding; abdomen is distended; umbilical hernia present; negative CVA tenderness; no signs of retroperitoneal hemorrhage MSK: no tics or fasciculations; mild nonpitting edema in the LEs B/L Neuro: A&Ox3; normal mood and affect; fluent speech; sensation intact in the LEs B/L Results & Data Results & Data Vital Signs (Past 12 Hours) Vital Signs Temp Pulse Pulse Resp BP BP Pulse Ox 03/08/23 17:17 76 03/08/23 17:11 98 03/08/23 17:11 100 H 20 172/82 H 97 03/08/23 13:59 36.6 C 81 20 149/87 H 98 O2 Del Method 03/08/23 17:17 03/08/23 17:11 Room Air 03/08/23 17:11 Room Air 03/08/23 13:59 Room Air Laboratory Results Abnormal lab results 03/08/23 03/08/23 Range/Units 14:15 14:21 RBC 4.61 L (4.70-6.10) M/uL Hgb 10.5 L (14.0-18.0) g/dl Hct 36.5 L (42.0-52.0) % MCV 79.2 L (80.0-100.0) fL MCH 22.8 L (25.0-34.0) pg MCHC 28.8 L (32.0-36.0) g/dL RDW Std Deviation 50.4 H (36.4-46.3) fL RDW Coeff of Stacia 18.0 H (11.5-14.5) % MPV 9.1 L (9.4-12.4) fL Lymph # (Auto) 0.99 L (1.20-3.40) K/uL Creatinine 1.43 H (0.6-1.4) mg/dl Glucose 121 H (70-99(Fasting)) mg/dl Urine Appearance Turbid A (Clear) Urine Protein 3+ H (Negative) Urine Glucose (UA) 2+ H (Negative) Urine Ketones Trace H (Negative) Urine Blood 3+ H (Negative) Urine RBC >30 H (0-4) /hpf Urine WBC >30 H (0-5) /hpf Diagnostic Findings Abdomen/Pelvis CT 03/08/23 18:[address] WITHOUT CONTRAST CT DOSE: 1334.64 mGy.cm HISTORY: suprapubic abd pain, hematuria TECHNIQUE: Multiaxial CT images of the abdomen and pelvis were performed without contrast. A dose lowering technique was utilized adhering to the principles of ALARA. COMPARISON STUDY: Abdomen and pelvis CT 01/30/2023. FINDINGS: The lung bases are clear. No pneumoperitoneum. No pneumatosis. Lumbar spinal fusion hardware is again noted. No suspicious lytic are blastic osseous lesions. Subendocardial fat deposition within the left ventricle consistent with an old infarct the heart remains mildly enlarged. A 3.4 cm soft tissue density within the body of the stomach best seen on image 64. This could represent a gastric mass. A small fat-containing umbilical hernia. The gallbladder surgically absent. The unenhanced liver, pancreas, spleen, and adrenal glands are unremarkable. Bilateral renal hypodense lesions are again noted. These are incompletely characters on this noncontrast study but favor cysts. No renal or ureteral stones. No hydronephrosis. 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 There is also stable 3 cm infrarenal abdominal aortic aneurysm. No retroperitoneal or pelvic lymphadenopathy. Hyperdense material within the bladder consistent with blood products in the setting of hematuria. There appears a 3.5 cm filling defects within the left posterior bladder wall near the ureteral orifice. This likely corresponds to the patient's known bladder mass. Suboptimal evaluation for bowel pathology due to the lack of intravenous and oral contrast. However, there is no definite bowel wall thickening or obstruction. Mild fat stranding adjacent to the bladder. Normal appendix. IMPRESSION: 1. Hyperdense material within the bladder consistent with blood products in the setting of hematuria. 2. There is a 3.5 cm left posterior bladder wall mass again noted. 3. No hydronephrosis. 4. Mild fat stranding surrounding the bladder. This could represent a cystitis. 5. A 3.4 cm soft tissue density within the body of the stomach. This may represent a gastric mass. Endoscopy recommended for further evaluation. 6. Additional findings as described above. ACT 112: Negative or not required by law. Electronically signed by: Mayur Mackey M.D. 03/08/2023 7:33 PM Code Status & VTE Plan Code Status Full code VTE Prophylaxis Plan VTE Prophylaxis will be ordered: Yes Supervising Physician Co-Signing Physician Notes Attending addendum: I have physically seen this patient, have supervised the [place]'s activities, and agree with the H&P unless as otherwise noted. Assessment and Plan: Gross hematuria with clots- CT scan showing 3.5 cm left posterior bladder wall mass Three-way Mcmanus catheter to be placed for continuous bladder irrigation beginning in the ED this evening N.p.o. after midnight Hold aspirin and anticoagulation Rocephin 2 g IV every 24 hours, with first dose in the ED Follow urine culture and sensitivity Consult placed with urology who saw the patient in the ED and had plans for surgery tomorrow morning Follow serial CBC with differential and renal function panel Acetaminophen 1 g IV every 8 hours as needed for mild pain or fever Hydromorphone 0.5 mg IV every 2 hours as needed for moderate pain Hydromorphone 1 mg IV every 2 hours as needed for severe pain Diabetes mellitus- Hold metformin and Jardiance Glucose 121 Hold a.m. glargine 40 units, and give modified dose after procedure based on sugar Diabetic diet to resume after procedure CAD/hypertension/paroxysmal atrial fibrillation/HFpEF- Continue metoprolol Other medications on hold until after procedure Remaining orders and notations as noted PG Care Time/CCT Total # of Minutes Spent Total Time Spent with Patient: Total time spent is greater than 50% in coordination of care (as documented) at patient's floor/unit and/or counseling patient: Coding [place] [address] INT INP/OBS CARE 3/75MIN Patient Type Established Medical Decision Making High Complexity Diagnoses Hematuria R31.9 Suprapubic abdominal pain R10.2 Diabetes mellitus, type 2 E11.9 Chronic diastolic CHF (congestive heart failure) I50.32 PAF (paroxysmal atrial fibrillation) I48.0 Stomach cancer C16.9 Hypertension I10 CAD (coronary artery disease) I25.10 Hyperlipidemia E78.5 Anxiety F41.9
--- NOTE | 2023-03-08 21:02 | Urology Consultation ---
<Statement entered by Harish Gomez MD - 03/09/23 11:33> I have discussed Mr. Zapata case with Alexis Keating PA-C and agree with the above documentation. Catheter seems to be draining after hand irrigation. Will defer to his primary urologist for additional management of suspected bladder mass. -Harish Gomez MD. Date of Consultation March 08, 2023 Assessment & Plan (1) Hematuria: I discussed with the treating emergency room physician and the patient is being admitted on the hospitalist service. We recommend proceeding as follows: I discussed case with my attending physician Dr. Gomez. He notes that due to the patient's hematuria, urinary retention, and abdominal discomfort decompression of his bladder is indicated. I therefore performed the following procedure: With the patient's permission and under sterile conditions I placed a 22 Mongolian three-way Mcmanus catheter without difficulty. Immediately upon placing his catheter a significant amount of grossly bloody urine was obtained. The catheter however was not draining sufficiently. I therefore manually irrigated the patient with nearly 1 L of sterile water. When performing this maneuver I was able to evacuate a large amount of blood clots from patient's bladder. I continue to flush and irrigate the patient's catheter until no more clots were retrieved and the urine was relatively clear. The patient was subsequently placed to continuous bladder irrigation and his Mcmanus catheter was noted to be draining adequately. The patient noted that following this procedure the suprapubic discomfort he was experiencing had improved. Would recommend maintaining the continuous bladder irrigation throughout the evening. If this becomes clogged manual irrigation can be employed Would recommend following serial labs The patient Notes that he was scheduled for cystoscopic evaluation by Dr. Harding on 03/09/2023 at [facility]. We therefore recommend making him n.p.o. at midnight so that he can undergo his planned procedure. Patient does have an abnormal urinalysis and he has been given ceftriaxone by the treating emergency room physician. Would recommend continuing antibiotics in the perioperative timeframe Analgesics to be provided Antiemetics to be provided if needed Additional recommendations be forthcoming based on his clinical course as it unfolds along with findings at time of cystoscopy I discussed the above with the patient and his family who is present at bedside (2) Urinary retention: (3) Bladder mass: History of Present Illness Reason for Consultation: Gross hematuria History of Present Illness This is a 77-year-old male who follows with Dr. Jass Harding of [facility]. The patient was most recently seen by Dr. Harding on 02/05/2023. Dr. Harding has been following this man secondary to a bladder mass noted on CT scan along with hematuria. Dr. Harding has subsequently planned to perform a cystoscopy on this patient on 03/08/2023. The patient presented to the emergency department the evening of 03/08/2023 do to ongoing hematuria. Patient notes that the hematuria is been going on for several weeks but has gotten markedly worse over the past several days. Patient now notes that he has had a great deal of difficulty urinating. He notes that he has a marked decreased stream of his urine and is having gross hematuria. He says that he is passing blood clots. He does note that when he does urinate only a small amount dribbles out and then he feels like he has to urinate almost immediately thereafter. He says he is exhibiting significant suprapubic discomfort because of the sensation. He denies any fevers, shakes, or chills. He denies any nausea or vomiting. Since arrival to the hospital the patient has had labs and imaging which I i independently reviewed. Labs include a CBC her white blood cell count and platelet count were normal. Hemoglobin and hematocrit were 10.5 and 36.5. Coagulation studies were noted to be within the normal range chemistry profile showed sodium and potassium along with the BUN were normal. His creatinine was 1.4. Urinalysis showed turbid urine with 3+ blood. The specimen was negative for nitrates and leukocyte Estrace. There were greater than 30 white blood cells per high-power field but this was negative for bacteria. A CT scan of the abdomen pelvis was performed. This showed the patient had hyperdense material within the bladder that was felt to be consistent with blood products in the setting of hematuria. Patient was also noted to have a 3.5 cm left posterior bladder wall mass. There is no hydronephrosis noted. There is some fat stranding surrounding the bladder potentially representing cystitis. Patient was also noted to have a 3.4 cm soft tissue density in the body of the stomach. The patient was quite uncomfortable during my encounter with him. Therefore the patient had a Mcmanus catheter placed. The description of this will be noted in the assessment and plan portion of this note Following the conclusion of my visit with the patient he did note some symptomatic relief with decompression of his bladder and he was in no distress Allergies Allergy/AdvReac Type Severity Reaction Status Date / Time apixaban [From Eliquis] Allergy Intermediate Rash Verified 03/08/23 18:09 semaglutide [From Ozempic] Allergy Intermediate Gastrointestinal Verified 03/08/23 18:09 Upset Home Medications Medication Instructions Recorded Confirmed Type simvastatin 80 mg tablet 40 mg PO HS 01/20/19 03/08/23 History blood sugar diagnostic (OneTouch #10 ea 01/28/19 01/21/23 History Ultra Blue Test Strip) blood-glucose meter (OneTouch #1 ea 01/28/19 01/21/23 History Ultra2 Meter kit) aspirin 81 mg capsule 81 mg PO QAM 03/13/22 03/08/23 History empagliflozin 10 mg tablet 10 mg PO HS 08/15/22 03/08/23 History (Jardiance) furosemide 40 mg tablet (Lasix) 40 mg PO DAILY PRN Edema 08/15/22 03/08/23 History insulin glargine 100 unit/mL 40 unit subcut QAM 08/15/22 03/08/23 History subcutaneous solution cyanocobalamin (vitamin B-12) 1,000 mcg PO QAM 01/21/23 03/08/23 History 1,000 mcg tablet (Vitamin B-12) metformin 1,000 mg tablet 1,000 mg PO BID 01/21/23 03/08/23 History omeprazole 40 mg capsule,delayed 40 mg PO BID #60 caps 01/23/23 03/08/23 Rx release ferrous sulfate 220 mg/5 mL oral 220 mg PO Q OTHER DAY 02/27/23 03/08/23 History elixir cholecalciferol (vitamin D3) 25 25 mcg PO DAILY 03/08/23 03/08/23 History mcg (1,000 unit) capsule (Vitamin D3) metoprolol succinate 50 mg 50 mg PO QAM 03/08/23 03/08/23 History tablet,extended release 24 hr paroxetine HCl 40 mg tablet 40 mg PO DAILY 03/08/23 03/08/23 History Patient History Medical History Bladder mass Stomach cancer Iron deficiency anemia PAF (paroxysmal atrial fibrillation) follows with Dr. Zaldivar, was on eliquis/metoprolol, pt states was taken off eliquis in Dec GERD (gastroesophageal reflux disease) CHF (congestive heart failure) EF 55-60% History of COVID-19 09/2019--mild symptoms, no symptoms now BPH (benign prostatic hyperplasia) Morbid obesity CAD (coronary artery disease) IMI, RCA BMS x2, in stent re-stenoses, 1999; no ischemia on Lexiscan May 2022 follows with [place] [facility]ology, Dr. Zaldivar Chronic back pain Diabetes mellitus, type 2 IDDM Anxiety Myocardial Infarction 2002--had heart cath, follows with Dr. Zaldivar Hypertension Hyperlipidemia Surgical History History of esophagogastroduodenoscopy (EGD) History of back surgery 1988 > lumbar History of lumbar spinal fusion (~01/2019) 2012 History of cholecystectomy History of colonoscopy last 08/26/22 @ [facility] History of cardiac cath 2002, [facility] Family History Father Family history of diabetes mellitus Brother Family history of diabetes mellitus Mother Family history of diabetes mellitus Sister Family history of diabetes mellitus Son Hypertension Other No family history of adverse response to anesthesia Social History Smoking Status: Never smoker Tobacco Type: Cigarettes Second Hand Exposure: No; Do You Dip or Chew Tobacco: No; Hx Alcohol Use: No Hx Substance Use: No Preferred Language: Japanese Communication Ability: Effective Service Specialist Required: No Beliefs That Will Affect Care: None marital status: Current Living Situation: Spouse Feels Safe at Home: Yes Assistive Devices: Cane and Glasses Review of Systems Constitutional: no fever and no chills Ear, Nose, Mouth, Throat: no hearing loss Respiratory: no cough and no dyspnea Cardiovascular: no chest pain Gastrointestinal: + abdominal pain (Suprapubic discomfort) Genitourinary: + as per Subjective / HPI Musculoskeletal: no back pain Integumentary: no rash Neurologic: no localized weakness Physical Exam Constitutional: well developed, well nourished and cooperative; + uncomfortable Eyes: no conjunctival abnormality ENMT: Ears: no hearing impairment and no external ear abnormality Mouth: no oropharynx abnormality Neck: trachea midline Respiratory: normal respiratory effort; no respiratory distress and no labored breathing Cardiovascular: Rate/Rhythm: regular rate and regular rhythm Gastrointestinal (Abdomen): Abdomen is soft and nonrigid. There is nondistended. The patient did exhibit discomfort with palpation of the suprapubic region which caused him the sensation that he needed to urinate Musculoskeletal: No calf tender Skin: no rashes Neurologic: moves all extremities Psychiatric: A+Ox3, euthymic affect No CVA tenderness to percussion bilaterally Results & Data Vital Signs (Past 12 Hours) Vital Signs Temp Pulse Pulse Resp BP BP Pulse Ox 03/08/23 20:44 81 16 72 L 03/08/23 20:44 70 16 146/95 H 03/08/23 19:36 87 16 146/93 H 03/08/23 17:17 76 03/08/23 17:11 98 03/08/23 17:11 100 H 20 172/82 H 97 03/08/23 13:59 36.6 C 81 20 149/87 H 98 O2 Del Method 03/08/23 20:44 03/08/23 20:44 03/08/23 19:36 03/08/23 17:17 03/08/23 17:11 Room Air 03/08/23 17:11 Room Air 03/08/23 13:59 Room Air PG Care Time/CCT Total # of Minutes Spent Total Time Spent with Patient: Total time spent is greater than 50% in coordination of care (as documented) at patient's floor/unit and/or counseling patient: Coding Level of Care Code 14691 INT INP/OBS CARE 3/75MIN Diagnoses Hematuria R31.9 Urinary retention R33.9 Bladder mass N32.89
[2023-03-08] MEDS ORDERED: LORazepam 0.5 MG in SYRINGE 0.25 ML IV STA (21:05)
[2023-03-08] MEDS ORDERED: LORazepam 1 MG/1 ML SYR ED Inj Use ONE (21:14)
[2023-03-08] MEDS ORDERED: ACETAMINOPHEN 1,000 MG/100 ML VIAL IV PRN (22:39)
[2023-03-08] MEDS: SIMVASTATIN 40 MG TAB PO SCH (23:42)
[2023-03-08] MEDS: PANTOprazole 40 MG TAB PO SCH (23:42)
[2023-03-09 05:08] LABS: BUN Creatinine Ratio 16.8 (10-20); Calcium 8.8 mg/dl (8.6-10.3); Creatinine Clr Calc Pharmacy 60.7 ml/min; Est GFR (African American) 64.4 ml/min; Est GFR (Non-African American) 55.6 ml/min; Magnesium 2.2 mg/dl (1.7-2.4); Potassium 4.6 mmol/L (3.5-5.1)
[2023-03-09 05:30] LABS: Hematocrit (blood only) 31.1 % (42.0-52.0); Mean Corpuscular Hemoglobin 22.9 pg (25.0-34.0); Mean Corpuscular Hgb Conc 28.9 g/dL (32.0-36.0); Mean Corpuscular Volume 79.1 fL (80.0-100.0); Mean Platelet Volume 9.6 fL (9.4-12.4); Platelet Count 140 K/uL (130-400); RDW Coefficient of Variation 17.8 % (11.5-14.5); RDW Standard Deviation 50.8 fL (36.4-46.3); Red Blood Count 3.93 M/uL (4.70-6.10); White Blood Count 5.24 K/ul (4.8-10.8)
[2023-03-09 05:31] LABS: Basophils # (auto) 0.02 K/uL (0.00-0.20); Basophils % (auto) 0.4 %; Eosinophils # (auto) 0.06 K/uL (0.00-0.50); Eosinophils % (auto) 1.1 %; Hypochromasia Present; Immature Granulocytes # (auto) 0.02 K/uL (0.01-0.20); Immature Granulocytes % (auto) 0.4 %; Lymphocytes # (auto) 0.78 K/uL (1.20-3.40); Lymphocytes % (auto) 14.9 %; Monocytes # (auto) 0.46 K/uL (0.11-0.59); Monocytes % (auto) 8.8 %; Neutrophils % (auto) 74.4 %; Ovalocytes 1+; Polychromasia 1+; Tear Drop Cells 1+
[2023-03-09] MEDS: HYDROmorphone INJ 0.5 MG/0.5 ML SYR IV PRN ×2 (08:26→21:11)
[2023-03-09] MEDS: METOPROLOL SUCC 50MG EXT REL TAB PO SCH ×2 (08:26→21:12)
[2023-03-09] MEDS: PANTOprazole 40 MG TAB PO SCH ×2 (08:26→21:12)
--- NOTE | 2023-03-09 09:24 | Urology Progress Note ---
Date of Service March 09, 2023 Assessment & Plan (1) Hematuria: (2) Bladder mass: (3) Urinary retention: Plan 77yo/M with a known bladder mass admitted with urinary retention and hematuria. - Afebrile and hemodynamically stable. - Labs reviewed - WBC 5.24, Hemoglobin 9.0, Creatinine 1.25. - Urine culture pending, on Ceftriaxone. - Mcmanus intact, draining light pink urine with CBI on moderate rate. - Plan to proceed to OR today as scheduled for cystoscopy, possible clot evacuation, TURBT depending on findings with Dr. Harding. - Keep NPO. - Continue supportive care, antibiotics, pain management as needed. - Maintain Mcmanus catheter. Can titrate CBI as needed. Ok to manually irrigate as needed for clots, retention, suprapubic pain. - Urology will follow. Admission and Anticipated Discharge Date Admission Date: March 08, 2023 Supervising Physician Co-Signing Physician Notes Discussed patient with [place]. Agree with plan. Patient came in with clot retention. Was scheduled for TURBT anyway so proceed with that surgery plus clot evacuation. Consent obtained. Already received ceftriaxone Subjective Pt examined at bedside in the ED. Awake, resting in bed on arrival. No acute distress. Has been NPO. Mcmanus intact, draining light pink urine with CBI on moderate rate. Denies fevers, chills, nausea, vomiting. Denies significant pain. Review of Systems Constitutional: as per Subjective / HPI Gastrointestinal: as per Subjective / HPI Genitourinary: + as per Subjective / HPI Physical Exam Constitutional: no acute distress Respiratory: normal respiratory effort; no respiratory distress and no labored breathing Gastrointestinal (Abdomen): Percussion/Palpation: abdomen soft; abdomen nontender Neurologic: awake Psychiatric: A+Ox3, euthymic affect Genitourinary: Mcmanus intact, draining light pink urine with CBI on moderate rate Results & Data Vital Signs (Past 12 Hours) Vital Signs Pulse Pulse Resp BP BP Pulse Ox Pulse Ox 03/09/23 05:20 84 20 100 03/09/23 05:10 62 21 100 03/09/23 05:00 60 15 99 03/09/23 05:00 139/73 03/09/23 04:50 59 L 14 100 03/09/23 04:40 59 L 14 100 03/09/23 04:30 79 16 100 03/09/23 04:20 61 15 100 03/09/23 04:10 67 17 100 03/09/23 04:00 149/73 H 03/09/23 04:00 61 15 91 03/09/23 03:50 73 16 93 03/09/23 03:40 59 L 14 03/09/23 03:30 60 14 95 03/09/23 03:20 60 15 100 03/09/23 03:10 62 15 100 03/09/23 03:00 163/81 H 03/09/23 03:00 73 13 100 03/09/23 02:50 17 96 03/09/23 02:40 63 15 100 03/09/23 02:30 58 L 15 99 03/09/23 02:20 58 L 14 97 03/09/23 02:10 58 L 14 99 03/09/23 02:00 63 18 99 03/09/23 02:00 175/85 H 03/09/23 01:50 82 17 96 03/09/23 01:50 83 16 154/72 H 98 03/09/23 01:50 96 03/09/23 01:40 22 100 03/09/23 01:30 63 17 99 03/09/23 01:20 70 21 98 03/09/23 01:10 57 L 16 99 03/09/23 01:00 59 L 15 99 03/09/23 01:00 154/72 H 03/09/23 00:50 58 L 14 99 03/09/23 00:40 58 L 16 99 03/09/23 00:30 63 16 100 03/09/23 00:20 58 L 16 99 03/09/23 00:12 72 13 03/09/23 00:12 170/91 H 03/09/23 00:11 77 17 03/08/23 23:50 59 L 15 98 03/08/23 23:40 71 16 98 03/08/23 23:30 77 17 99 03/08/23 23:20 78 16 100 03/08/23 23:10 70 14 98 03/08/23 23:00 75 14 98 03/08/23 23:00 170/92 H 03/08/23 22:50 73 15 98 03/08/23 22:40 72 15 96 03/08/23 22:30 60 15 97 03/08/23 22:20 65 18 95 03/08/23 22:15 61 16 165/86 H 97 03/08/23 21:11 84 16 149/96 H 97 03/08/23 21:10 72 O2 Del Method O2 Del Method O2 Flow Rate O2 Flow Rate 03/09/23 05:20 03/09/23 05:10 03/09/23 05:00 03/09/23 05:00 03/09/23 04:50 03/09/23 04:40 03/09/23 04:30 03/09/23 04:20 03/09/23 04:10 03/09/23 04:00 03/09/23 04:00 03/09/23 03:50 03/09/23 03:40 03/09/23 03:30 03/09/23 03:20 03/09/23 03:10 03/09/23 03:00 03/09/23 03:00 03/09/23 02:50 03/09/23 02:40 03/09/23 02:30 03/09/23 02:20 03/09/23 02:10 03/09/23 02:00 03/09/23 02:00 03/09/23 01:50 03/09/23 01:50 Nasal Cannula 2 03/09/23 01:50 Nasal Cannula 2 03/09/23 01:40 03/09/23 01:30 03/09/23 01:20 03/09/23 01:10 03/09/23 01:00 03/09/23 01:00 03/09/23 00:50 03/09/23 00:40 03/09/23 00:30 03/09/23 00:20 03/09/23 00:12 03/09/23 00:12 03/09/23 00:11 03/08/23 23:50 03/08/23 23:40 03/08/23 23:30 03/08/23 23:20 03/08/23 23:10 03/08/23 23:00 03/08/23 23:00 03/08/23 22:50 03/08/23 22:40 03/08/23 22:30 03/08/23 22:20 03/08/23 22:15 Nasal Cannula 4 03/08/23 21:11 Room Air 03/08/23 21:10 PG Care Time/CCT Total # of Minutes Spent Total Time Spent with Patient: Total time spent is greater than 50% in coordination of care (as documented) at patient's floor/unit and/or counseling patient: Coding Level of Care Code 58011 SUB INP/OBS CARE 2/35MIN Diagnoses Hematuria R31.9 Bladder mass N32.89 Urinary retention R33.9
[2023-03-09] MEDS ORDERED: DIATRIZOATE MEGLUMINE 30% 100ML VIAL INSTIL ONE (11:55)
--- NOTE | 2023-03-09 12:21 | Operative Report ---
PG Post Operative Report Pre & Post Diagnosis Operation Date: 03/09/23 11:00 Pre-Op Diagnosis: Hematuria Post-Op Diagnosis: Hematuria I identified the patient and participated in the time-out.: Yes Procedure Operation Date: 03/09/23 11:00 Actual Procedures p Transurethral Resection Bladder Tumor large, Bilateral Retrograde Pyelogram, clot evacuation - Jass Harding MD Surgeon Jass Harding MD Auto Claim Representative None Estimated Blood Loss 25 Findings See Below Very large tumor over the left lateral wall and dome measuring 8 cm. Significant mount of clot from active bleed removed. Resected down to muscle. Bilateral retrograde pyelograms did not show any obvious filling defects. Urine was clear off CBI at end of case. No concern for perforation. Specimens Bladder tumor Drains 22Fr [address] catheter Indications 77-year-old male with a calcified bladder mass on CT scan who is scheduled for TURBT today. He presented to the emergency department overnight and clot retention was started on CBI. Description of Procedure After informed consent was obtained, the patient was transported to the operative suite. General anesthesia was induced. They were placed in dorsal lithotomy position and prepped and draped in sterile fashion. They received preoperative Ancef. An appropriate surgical timeout was performed. 27 Chinese resectoscope was inserted per urethra and the bladder. [place]ova cystoscopy revealed a large amount of clot that obscured vision. Using Ellik evacuator's, clot was evacuated. Cystoscopy revealed an 8 cm tumor over the left lateral wall and dome. Using a loop, the tumor was resected down to muscle. There was no concern for perforation. Hemostasis was achieved. Tumor specimen was evacuated and sent for pathology. Remainder of bladder free of tumor or injury. Tumor chips were evacuated out using the Ellik evacuator. Scope was removed. I then switched to a cystoscope and shot bilateral retrograde pyelograms through 5 Chinese open-ended catheter which showed no obvious filling defects. Bladder was left full and scope was removed. 22 Chinese three-way Mcmanus catheter was placed and bladder was irrigated. Urine was clear. Port was capped. This concluded the end of the case All counts correct at the end of the case. I was present, scrubbed and actively participated for the entirety of the procedure. I attest to the content of the Intraoperative Record and any orders documented therein. Any exceptions are noted below.
[2023-03-09] MEDS ORDERED: fentaNYL citrate PF 100 MCG/2 ML VIAL IV PRN (15:02)
[2023-03-09] MEDS ORDERED: ONDANSETRON INJ 2 MG/ML 2 ML VIAL IV PRN (15:04)
[2023-03-09] MEDS ORDERED: ePHEDrine sulfate 50 MG/ML AMP IV PRN (15:04)
[2023-03-09] MEDS ORDERED: ATROPINE SULFATE 0.1 MG/ML 10ML SYR IV PRN (15:06)
[2023-03-09] MEDS ORDERED: HYDROmorphone INJ 2 MG/ML SYR/VIAL IV PRN (15:06)
--- NOTE | 2023-03-09 15:36 | Hospitalist Progress Note ---
Date of Service March 09, 2023 Assessment & Plan (1) Hematuria: Plan: Patient passing blood clots in urine x2 weeks with acute worsening last night on 03/07 UA positive +3 blood Hgb 10.5 and Hct 36.5 on arrival BUN 19, Cr 1.43 (Baseline 1.6), eGFR 47.2 Abdomen/pelvis CT revealed 3.5 cm left posterior bladder wall mass He is now s/p cystoscopy and removal of 8cm mass in the dome Bleeding controlled Appreciate Urology Moniutor hemoglobin overnight If stable, discharge tomorrow caleb (2) Suprapubic abdominal pain: Plan: 02/03 at worst Patient received hydromorphone 0.25 mg x 2 in the ED Acetaminophen 1000 mg IV q8h as needed for pain 1-3 Hydromorphone 0.5 mg IV q2h as needed for pain 4-6 Hydromorphone 1.0 mg IV q2h as needed for pain 7-10 We will reevaluate pain following Mcmanus placement, bladder irrigation (3) Diabetes mellitus, type 2: Plan: Last A1c 4.8% on 12/19/2021 Glucose 1 3 on arrival Hold metformin, Jardiance Patient normally takes insulin glargine 40u SQ QAM; last taken morning of 03/08 Hold basal insulin prior to urologic procedure; continue with SSI and Lantus following procedure T2DM diet Adjust regimen as needed AM A1c (4) Chronic diastolic CHF (congestive heart failure): Plan: Last echo on 05/20/2022 showed LVEF of 55-60% Hold Lasix (5) PAF (paroxysmal atrial fibrillation): Plan: Patient not currently on anticoagulation Rate controlled; continue metoprolol (6) Stomach cancer: Plan: Dx in January 2023 (7) Hypertension: Plan: BP 146/93 at time of admission Continue metoprolol (8) CAD (coronary artery disease): Plan: IMI, RCA BMS x2 No ischemia on Lexiscan 05/2022 (9) Hyperlipidemia: Plan: Continue simvastatin (10) Anxiety: Plan: Continue paroxetine after procedure Plan Disposition: Admit to [facility] [place] telemetry Full code Keep n.p.o. prior to procedure; then AHA/T2DM diet VTE PPx: SCDs (hold chemical DVT PPx in setting of gross hematuria and urologic intervention) Admission and Anticipated Discharge Date Admission Date: March 08, 2023 Subjective patient seen and examined, family by the bedside, plan for surgery Review of Systems Review of Systems: All systems reviewed are negative, apart from the ones contained in the history. Physical Exam Physical Exam: The patient is awake, alert and oriented 3, well developed and well nourished, normocephalic and atraumatic, lying in bed and in no acute distress. HEENT--PERRL, EOMI, mucous membranes and oropharynx mildly dry Neck--supple. No JVD. No bruits. Thyroid normal, trachea midline, no adenopathy. Heart--normal S1 and S2. No murmurs, rubs or gallops. Lungs--clear bilaterally, no respiratory distress, no accessory muscle use. Abdomen--normal bowel sounds and soft. Mild epigastric and left sided abdominal pain Extremities--no cyanosis or clubbing. No edema. Dermatologic--normal skin turgor, normal color, no abnormal lymph nodes, no rash. Neurologic--cranial nerves II through XII grossly intact. Rheumatologic--normal range of motion. Psychiatric--normal affect. Results & Data Results & Data Vital Signs (Past 12 Hours) Vital Signs Temp Pulse Pulse Pulse Resp BP BP 03/09/23 15:30 98.1 F 65 15 116/65 03/09/23 14:30 81 22 123/66 03/09/23 14:00 85 20 126/68 03/09/23 13:30 84 18 143/78 H 03/09/23 13:20 88 19 142/76 H 03/09/23 13:10 88 13 135/77 03/09/23 13:00 97.5 F L 77 14 138/79 03/09/23 12:50 82 16 140/73 03/09/23 12:40 84 12 146/83 H 03/09/23 12:30 76 15 144/81 H 03/09/23 12:22 97.5 F L 79 15 152/84 H 03/09/23 10:01 97.3 F L 95 H 20 03/09/23 09:00 66 20 153/76 H 03/09/23 05:20 84 20 03/09/23 05:10 62 21 03/09/23 05:00 60 15 03/09/23 05:00 139/73 03/09/23 04:50 59 L 14 03/09/23 04:40 59 L 14 03/09/23 04:30 79 16 03/09/23 04:20 61 15 03/09/23 04:10 67 17 03/09/23 04:00 149/73 H 03/09/23 04:00 61 15 03/09/23 03:50 73 16 03/09/23 03:40 59 L 14 BP Pulse Ox O2 Del Method O2 Flow Rate 03/09/23 15:30 100 Nasal Cannula 2 03/09/23 14:30 97 Room Air 03/09/23 14:00 93 Room Air 03/09/23 13:30 94 Room Air 03/09/23 13:20 96 Room Air 03/09/23 13:10 97 Room Air 03/09/23 13:00 95 Room Air 03/09/23 12:50 93 Room Air 03/09/23 12:40 94 Room Air 03/09/23 12:30 95 Room Air 03/09/23 12:22 97 Room Air 03/09/23 10:01 163/75 H 95 Room Air 03/09/23 09:00 97 Nasal Cannula 2 03/09/23 05:20 100 03/09/23 05:10 100 03/09/23 05:00 99 03/09/23 05:00 03/09/23 04:50 100 03/09/23 04:40 100 03/09/23 04:30 100 03/09/23 04:20 100 03/09/23 04:10 100 03/09/23 04:00 03/09/23 04:00 91 03/09/23 03:50 93 03/09/23 03:40 PG Care Time/CCT Total # of Minutes Spent Total Time Spent with Patient: Total time spent is greater than 50% in coordination of care (as documented) at patient's floor/unit and/or counseling patient: Coding Level of Care Code 78290 SUB INP/OBS CARE 2/35MIN Diagnoses Hematuria R31.9 Suprapubic abdominal pain R10.2 Diabetes mellitus, type 2 E11.9 Chronic diastolic CHF (congestive heart failure) I50.32 PAF (paroxysmal atrial fibrillation) I48.0 Stomach cancer C16.9 Hypertension I10 CAD (coronary artery disease) I25.10 Hyperlipidemia E78.5 Anxiety F41.9 Time Spent (min) 35
[2023-03-09] MEDS ORDERED: DEXTROSE 50% 50 ML SYRINGE IV PRN (17:15)
[2023-03-09] MEDS ORDERED: GLUCOSE 40% GEL 15 GM TUBE PO PRN (17:15)
[2023-03-09] MEDS ORDERED: GLUCAGON FOR INJ 1 MG VIAL IM PRN (17:15)
[2023-03-09] MEDS ORDERED: GLUCOSE 10 TAB/TUBE PO PRN (17:15)
[2023-03-09] MEDS ORDERED: CARBOHYDRATES FOR HYPOGLYCEMIA PO PRN (17:15)
[2023-03-09] MEDS: INSULIN ASPART PER UNIT CHARGE SC SCH (21:11)
[2023-03-09] MEDS: cefTRIAXone SODIUM 2,000 MG in DEXTROSE 5 % MINI-B 50 ML IV SCH (21:12)
[2023-03-09] MEDS: SIMVASTATIN 40 MG TAB PO SCH (21:13)
[2023-03-09] MEDS: HYDROmorphone INJ 1 MG/ML SYRINGE IV PRN (23:54)
[2023-03-10] MEDS: HYDROmorphone INJ 1 MG/ML SYRINGE IV PRN ×3 (04:08→10:11)
--- NOTE | 2023-03-10 08:00 | Urology Progress Note ---
Date of Service March 10, 2023 Assessment & Plan (1) Hematuria: (2) Bladder mass: (3) Urinary retention: Plan 77yo/M with a known bladder mass admitted with urinary retention and hematuria. - POD #1 s/p Transurethral Resection Bladder Tumor large, Bilateral Retrograde Pyelogram, clot evacuation with Dr. Harding. - Recovering appropriately. - Having discomfort at the catheter insertion site. Has been managing with IV Dilaudid. Will also try topical lidocaine at cath insertion site. - Afebrile and hemodynamically stable. - Labs reviewed -WBC 5.36, hemoglobin 8.4, creatinine 1.43. Continue to trend. - Urine culture pending, on Ceftriaxone. - Mcmanus intact, draining yellow urine with a few small clots in tubing. Continue to monitor. Ok to gently hand irrigate as needed for clots, retention, suprapubic pain. - Continue supportive care and pain management as needed. - Continue antibiotics and tailor as culture data becomes available. - Maintain Mcmanus catheter. Will arrange outpatient voiding trial and follow-up with our service. - Urology will follow. Admission and Anticipated Discharge Date Admission Date: March 08, 2023 Subjective Patient examined at bedside this AM. Awake, resting in bed on arrival. No acute distress. Mcmanus intact, draining yellow urine with a few small clots in tubing. Reports discomfort at the catheter insertion site. Has been utilizing IV Dilaudid for pain management. Denies fevers, chills, nausea, vomiting. Denies abdominal or suprapubic discomfort. Tolerating diet. Review of Systems Constitutional: as per Subjective / HPI Gastrointestinal: as per Subjective / HPI Genitourinary: + as per Subjective / HPI Physical Exam Constitutional: no acute distress Respiratory: normal respiratory effort; no respiratory distress and no labored breathing Gastrointestinal (Abdomen): Percussion/Palpation: abdomen soft; abdomen nontender Neurologic: awake Psychiatric: A+Ox3, euthymic affect Genitourinary: Mcmanus intact, draining yellow urine with a few small clots in tubing Results & Data Vital Signs (Past 12 Hours) Vital Signs Temp Pulse Pulse Resp BP Pulse Ox O2 Del Method 03/10/23 07:27 36.4 C L 78 16 122/72 93 Room Air 03/10/23 07:26 65 03/10/23 03:17 36.8 C 78 18 143/78 H 93 Room Air 03/09/23 23:14 36.6 C 75 18 125/70 94 Room Air 03/09/23 23:07 73 PG Care Time/CCT Total # of Minutes Spent Total Time Spent with Patient: Total time spent is greater than 50% in coordination of care (as documented) at patient's floor/unit and/or counseling patient: Coding Level of Care Code 19523 SUB INP/OBS CARE 2/35MIN Diagnoses Hematuria R31.9 Bladder mass N32.89 Urinary retention R33.9
[2023-03-10] MEDS: INSULIN ASPART PER UNIT CHARGE SC SCH ×4 (09:01→20:47)
[2023-03-10 09:20] LABS: Basophils # (auto) 0.01 K/uL (0.00-0.20); Basophils % (auto) 0.2 %; Eosinophils # (auto) 0.12 K/uL (0.00-0.50); Eosinophils % (auto) 2.2 %; Hemoglobin 8.4 g/dl (14.0-18.0); Immature Granulocytes # (auto) 0.02 K/uL (0.01-0.20); Immature Granulocytes % (auto) 0.4 %; Lymphocytes # (auto) 0.77 K/uL (1.20-3.40); Lymphocytes % (auto) 14.4 %; Mean Corpuscular Hemoglobin 22.9 pg (25.0-34.0); Mean Platelet Volume 9.5 fL (9.4-12.4); Monocytes # (auto) 0.52 K/uL (0.11-0.59); Monocytes % (auto) 9.7 %; Neutrophils # (auto) 3.92 K/uL (1.40-6.50); Neutrophils % (auto) 73.1 %; Platelet Count 132 K/uL (130-400); RDW Coefficient of Variation 18.3 % (11.5-14.5); RDW Standard Deviation 52.5 fL (36.4-46.3); Red Blood Count 3.67 M/uL (4.70-6.10); White Blood Count 5.36 K/ul (4.8-10.8)
[2023-03-10 09:37] LABS: BUN Creatinine Ratio 13.3 (10-20); Calcium 8.9 mg/dl (8.6-10.3); Creatinine Clr Calc Pharmacy 52.1 ml/min; Est GFR (African American) 54.7 ml/min; Est GFR (Non-African American) 47.2 ml/min; Potassium 4.6 mmol/L (3.5-5.1)
[2023-03-10] MEDS: PANTOprazole 40 MG TAB PO SCH ×2 (10:10→20:38)
[2023-03-10] MEDS ORDERED: LIDOCAINE 2% JELLY 5 ML TUBE EXT PRN (10:18)
[2023-03-10] MEDS: PARoxetine HCL 20 MG TAB PO SCH (12:03)
--- NOTE | 2023-03-10 12:13 | Hospitalist Progress Note ---
Date of Service March 10, 2023 Assessment & Plan (1) Hematuria: Plan: Patient passing blood clots in urine x2 weeks with acute worsening last night on 03/07 UA positive +3 blood Abdomen/pelvis CT revealed 3.5 cm left posterior bladder wall mass He is now s/p cystoscopy and removal of 8cm mass in the dome Bleeding controlled Appreciate Urology Monitor hemoglobin overnight (2) Diabetes mellitus, type 2: Plan: Last A1c 4.8% on 12/19/2021 Glucose 1 3 on arrival Hold metformin, Jardiance Patient normally takes insulin glargine 40u SQ QAM; last taken morning of 03/08 Hold basal insulin prior to urologic procedure; continue with SSI and Lantus following procedure T2DM diet Adjust regimen as needed AM A1c (3) Chronic diastolic CHF (congestive heart failure): Plan: Last echo on 05/20/2022 showed LVEF of 55-60% Hold Lasix (4) PAF (paroxysmal atrial fibrillation): Plan: Patient not currently on anticoagulation Rate controlled; continue metoprolol (5) Stomach cancer: Plan: Dx in January 2023 (6) Hypertension: Plan: BP 146/93 at time of admission Continue metoprolol (7) CAD (coronary artery disease): Plan: IMI, RCA BMS x2 No ischemia on Lexiscan 05/2022 (8) Suprapubic abdominal pain: Plan: still having some pains, but now more around the penis Patient received hydromorphone 0.25 mg x 2 in the ED Acetaminophen 1000 mg IV q8h as needed for pain 1-3 Hydromorphone 0.5 mg IV q2h as needed for pain 4-6 Hydromorphone 1.0 mg IV q2h as needed for pain 7-10 add lidocaine gel convert IV meds to PO in anticipation of discharge (9) Hyperlipidemia: Plan: Continue simvastatin (10) Anxiety: Plan: Continue paroxetine after procedure (11) Acute blood loss as cause of postoperative anemia: Plan: stable hb monitor Plan Hopefully d/c tomorrow when pain is under better control Disposition: Admit to [facility] telemetry Full code VTE PPx: SCDs (hold chemical DVT PPx in setting of gross hematuria and urologic intervention) Admission and Anticipated Discharge Date Admission Date: March 08, 2023 Subjective patient seen and examined, stable post cystoscopy and resection of tumor Review of Systems Review of Systems: All systems reviewed are negative, apart from the ones contained in the history. Physical Exam Physical Exam: The patient is awake, alert and oriented 3, well developed and well nourished, normocephalic and atraumatic, lying in bed and in no acute distress. HEENT--PERRL, EOMI, mucous membranes and oropharynx mildly dry Neck--supple. No JVD. No bruits. Thyroid normal, trachea midline, no adenopathy. Heart--normal S1 and S2. No murmurs, rubs or gallops. Lungs--clear bilaterally, no respiratory distress, no accessory muscle use. Abdomen--normal bowel sounds and soft. Mild epigastric and left sided abdominal pain Extremities--no cyanosis or clubbing. No edema. Dermatologic--normal skin turgor, normal color, no abnormal lymph nodes, no rash. Neurologic--cranial nerves II through XII grossly intact. Rheumatologic--normal range of motion. Psychiatric--normal affect. Results & Data Results & Data Vital Signs (Past 12 Hours) Vital Signs Temp Pulse Pulse Resp BP Pulse Ox O2 Del Method 03/10/23 10:52 97.3 F L 77 16 125/65 94 Room Air 03/10/23 10:08 78 16 137/72 93 Room Air 03/10/23 07:27 97.5 F L 78 16 122/72 93 Room Air 03/10/23 07:26 65 03/10/23 03:17 98.2 F 78 18 143/78 H 93 Room Air PG Care Time/CCT Total # of Minutes Spent Total Time Spent with Patient: Total time spent is greater than 50% in coordination of care (as documented) at patient's floor/unit and/or counseling patient: Coding Level of Care Code 20796 SUB INP/OBS CARE 2/35MIN Diagnoses Hematuria R31.9 Diabetes mellitus, type 2 E11.9 Chronic diastolic CHF (congestive heart failure) I50.32 PAF (paroxysmal atrial fibrillation) I48.0 Stomach cancer C16.9 Hypertension I10 CAD (coronary artery disease) I25.10 Suprapubic abdominal pain R10.2 Hyperlipidemia E78.5 Anxiety F41.9 Acute blood loss as cause of postoperative anemia D62 Time Spent (min) 35
[2023-03-10] MEDS: HYDROmorphone HCL 2 MG TAB PO PRN ×2 (18:12→20:36)
[2023-03-10] MEDS: SIMVASTATIN 40 MG TAB PO SCH (20:37)
[2023-03-10] MEDS: cefTRIAXone SODIUM 2,000 MG in DEXTROSE 5 % MINI-B 50 ML IV SCH (20:40)
--- OUTSIDE RECORDS SUMMARY | 2023-03-10 23:04 | External Medical Summary ---
Author Name Unknown Address Unknown Organization K1G:[facility] - [address] [id number] Laboratory Report Ordering Provider Test Date Status KRISTI RODRIGUEZ 03/01/2023 11:31:16 Final Observation Date Value Abnormality Reference (Units ) Status Color of Urine by Auto 03/01/2023 11:31:16 Yellow Light Yellow, Yellow, Dark Yellow Final Clarity, Urine 03/01/2023 11:31:16 Slightly Cloudy Abnormal Clear Final Glucose [Mass/volume] in Urine by Automated test strip 03/01/2023 11:31:16 >=1000 Abnormal Negative (mg/dL) Final Bilirubin.total [Presence] in Urine by Automated test strip 03/01/2023 11:31:16 Negative Negative Final Ketones [Mass/volume] in Urine by Automated test strip 03/01/2023 11:31:16 Negative Negative (mg/dL) Final Specific gravity, Urine 03/01/2023 11:31:16 1.030 1.003-1.030 Final Hemoglobin [Presence] in Urine by Automated test strip 03/01/2023 11:31:16 Large Abnormal Negative Final pH, Urine 03/01/2023 11:31:16 6.0 5.0-7.5 (Units) Final Protein [Mass/volume] in Urine by Automated test strip 03/01/2023 11:31:16 100 Abnormal Negative (mg/dL) Final Urobilinogen [Mass/volume] in Urine by Automated test strip 03/01/2023 11:31:16 0.2 0.2, 1.0 (mg/dL) Final Nitrite [Presence] in Urine by Automated test strip 03/01/2023 11:31:16 Negative Negative Final Leukocyte esterase [Presence] in Urine by Automated test strip 03/01/2023 11:31:16 Negative Negative Final Performing Location [facility] - [address] [facility] [id number]
--- OUTSIDE RECORDS SUMMARY | 2023-03-10 23:04 | External Medical Summary | Summary of Care ---
Author Name Unknown Organization [facility] Address [address] [place] [address] Phone [phone] Care Team Providers Care Beef Selector Name Role Phone Sherice Silva MD Primary Care Prov ider Reason for Visit * Auth/Cert Specialty Diagnoses / Procedures Referred By Abdirashid colón Referred To Contact Referral ID Status Reason Start Date Expiration Date Visits Re quested Visits Authorized [id number] Encounter Details Date Type Department Care Team (Late st Contact Info) Description 03/01/2023 11:29 AM EST - 03/01/2023 12:37 PM EST Emergency [facility] Emergency Department ([facility]) [address] [place] [address] Ana Varela, DO [address] [place] [address] Gross hematuria (Primary Dx) Discharge Disposition: Home - Self Care Allergies Active Allergy Reactions Criticality Noted Date Comments Duloxetine Hcl Edema Other 04/27/2022 Apixaban Itching,Rash 01/28/2023 Semaglutide(0.25 Or 0.5mg-Dos) Medium 04/21/2022 Stomach pain/cramps documented as of this encounter (statuses as of 03/02/2023) Medications Medication Sig Dispensed Refills Start Date End Date Status Insulin Detemir 100 UNIT/ML Subcutaneous Solution (Levemir) Inject 20 Units under the skin daily. 0 Active metFORMIN HCl 500 MG Oral Tablet (Glucophage) Take 2 Tablets by mouth 2 times a day with morning and evening meals. 0 Active Simvastatin 80 MG Oral Tablet (Zocor) Take 0.5 Tablets by mouth at bedtime. 0 Active Aspirin 81 MG Oral Capsule Take 81 mg by mouth daily. 0 Active Metoprolol Succinate ER 50 MG Oral Tablet Extended Release 24 Hour (toPROL XL) Take 1 Tablet by mouth in the morning. Do not start before May 01, 2022. 30 Tablet 0 05/01/2022 Active PARoxetine HCl 20 MG Oral Tablet (pAXil) Take 1 Tablet by mouth at bedtime. 0 Active Furosemide 40 MG Oral Tablet (Lasix) Take 1 Tablet by mouth as needed. Weight gain of 3 lbs in one day. 0 Active Cyanocobalamin 1000 MCG Oral Tablet Take 1 Tablet by mouth in the morning. 0 Active Empagliflozin 10 MG Oral Tablet (Jardiance) Take 1 Tablet by mouth every evening. 0 Active Tamsulosin HCl 0.4 MG Oral Capsule (Flomax) Take 1 Capsule by mouth in the morning. 90 Capsule 3 12/04/2022 Active Omeprazole 20 MG Oral Tablet Delayed Release Disintegrating Take by mouth at bedtime. 0 Active Insulin Glargine 100 UNIT/ML Subcutaneous Solution Pen-injector (Lantus) Inject 40 Units under the skin in the morning. 0 Active documented as of this encounter (statuses as of 03/02/2023) Active Problems Problem Noted Date Diagnosed Date Malignant neoplasm of overlapping sites of stoma ch 02/09/2023 Hypertensive heart disease with congestive heart failure 12/04/2022 AAA (abdominal aortic aneurysm) 07/09/2022 Overview: 3.0 cm AAA noted on CT abd/pel 06/30/22 Atrial fibrillation 07/08/2022 Intractable nausea and vomiting 06/30/2022 Heart failure with acute decompensation, type un known 04/27/2022 Atherosclerosis of coronary artery 04/21/2022 BPH (benign prostatic hyperplasia) 04/21/2022 Morbid obesity 04/21/2022 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 03/19/2022 Diabetes mellitus without complication Hyperlipidemia 12/05/2021 HUMBLE (generalized anxiety disorder) 12/05/2021 B12 deficiency 12/05/2021 Vitamin D deficiency 12/05/2021 Sciatica 12/29/1997 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, ORGANIC ORIGN documented as of this encounter (statuses as of 03/02/2023) Resolved Problems Problem Noted Date Diagnosed Date Resolved Date Viral pneumonia 04/27/2022 04/30/2022 documented as of this encounter (statuses as of 03/02/2023) Immunizations Name Administration Dates Next Due COVID-19 mRNA, LNP-s, No Pre serve, 2-Dose Series (Pfizer) 08/01/2020,07/11/2020 Pneumococcal Conjugate Vacci ne, 20-valent ([id number]) 05/09/2022 Season Influenza, Quad, PF, Adjuvanted, 65+ Yrs, IM (FLUAD) 03/27/2020 Seasonal Influenza Virus Vac cine, Unspecified Formulation 03/01/2018,02/27/2015,04/04/2014,2000 Seasonal Influenza, Quadriva lent Hd (Fluzone Hd) 03/18/2022 Seasonal Influenza, Split, I IV3, With Preserve, Inj 02/27/2015 documented as of this encounter Social History Tobacco Use Types Packs/Day Years Used Date Smoking Tobacco: Former Cigarettes 1 30 Smokeless Tobacco: Never Alcohol Use Standard Drinks/Week Comments Never 0 (1 standard drink = 0.6 oz pur e alcohol) PHQ-2 Answer Date Recorded PHQ Adult Total Score 0 12/04/2022 Hunger Vital Sign Answer Date Recorded Within the past 12 months, y ou worried that your food would run out before you got the money to buy more. Never true 12/05/19 23 Within the past 12 months, t he food you bought just didn't last and you didn't have money to get more. Never true 12/04/2022 Sex and Gender Information Value Date Recorded Sex Assigned at Male 12/04/2022 6:49 AM EDT Gender Identity Male 12/04/2022 6:49 AM EDT Sexual Orientation Straight 12/04/2022 6: 49 AM EDT Job Start Date Occupation Industry Not on file Not on file Not on file documented as of this encounter Last Filed Vital Signs Vital Sign Reading Time Taken Comments Blood Pressure 140/69 03/01/2023 12:00 PM EST Pulse 68 03/01/2023 12:00 PM EST Temperature 36.8 C (98.2 F) 03/01/2023 11:[address] Respiratory Rate 16 03/01/2023 12:00 PM EST Oxygen Saturation 98% 03/01/2023 12:00 PM EST Inhaled Oxygen Concentration - - Weight 99.8 kg (220 lb) 03/01/2023 11:26 AM EST Height 167.6 cm (5' 6") 03/01/2023 11:26 AM EST Body Mass Index 35.51 03/01/2023 11:26 AM EST documented in this encounter Functional Status Functional Status Response Date of Assess ment Are you deaf or do you have serious difficulty h earing? No 04/27/2022 Are you blind or do you have serious difficulty seeing, even when wearing glasses? No 04/27/2022 Do you have serious difficul ty walking or climbing stairs? (5 years old or older) Yes 04/28/2022 Do you have difficulty dress ing or bathing? (5 years old or older) No 04/27/2022 Because of a physical, menta l, or emotional condition, do you have difficulty doing errands alone such as visiting a doctor s office or shopping? (15 years old or older) No 04/27/19 Cognitive Status Response Date of Assessm ent Because of a physical, menta l, or emotional condition, do you have serious difficulty concentrating, remembering, or making decisions? (5 years old or older No 04/27/2022 documented as of this encounter Discharge Instructions * Discharge Instructions* Rick Sanchez, Nilton Rico PA-C - 03/01/2023 12:33 PM EST You were seen and evaluated for blood in urine. Please follow the instructions below: As we discussed, not have any acute concerns about the blood in urine. Advised following up with General surgery and your paper and pulp mill worker/oncologist for continued care of your cancer management. Please follow up with the primary care provider as needed as well. Your urine is not infected at this time. Please read the instructions below regarding your care: Please call and/or follow up with your Primary Care Physician (PCP) in the next 5 day(s) with additional concerns. If you do not have a Primary Care Physician, you may call [facility] appointments at [phone] or [phone]. Return to the Emergency Department or seek medical attention if you notice any change or worsening of your condition or any of the following problems: Pain with urination, fever or chills, any other emergently concerning symptoms documented in this encounter Miscellaneous Notes * Pt Handout (on AVS) - Nilton Cabrera Jr., PA-C - 03/01/2023 12:31 PM EST [id number] Blood in Urine (Hematuria) Blood in your urine is called hematuria. Most of the time, the cause is not serious. But you shouldnever ignore blood in the urine. Your healthcare provider can evaluate you to find the cause of thebleeding and treat it, if needed. Types of hematuria Gross hematuria. This means that the blood can easily be seen when you look at it. The urine maylook pinkish, brownish, or bright red. Microscopic hematuria. This means that the urine appears clear, but blood cells can be seen whenurine is looked at under a microscope or tested in a lab. Both types of hematuria can have the same causes. Neither is more serious than the other. With either type, you may not have any other symptoms at all. Or you may have symptoms, such as: Pain, pressure, or burning when you urinate Belly pain Back pain No matter how much blood is in your urine, the cause of the bleeding needs to be diagnosed and treated. What causes hematuria? Causes of hematuria vary. Some of the more common causes include : Injury or trauma Strenuous exercise Infection or inflammation of the bladder, urethra, kidney, or prostate Menstruation. In this case, blood is found in urine sample, but it's not related to urinary problems. Other reasons for blood in urine that may be more serious include: Blood-clotting disorders Kidney or bladder stones Prostate enlargement Bladder or kidney cancer Sickle cell disease Kidney disease of the glomeruli. This is a round cluster of blood vessels. Many treatments are available for blood in the urine, depending on the cause. Diagnosing hematuria Your healthcare provider will first confirm that blood is in your urine. They will also ask about your health history and give you a physical exam. Then you may have tests to find out where the bloodis coming from and why. Your provider will decide which tests will best find the cause of your hematuria. These are some common tests that may be done: Urine tests, such as urinalysis, urine culture, or urine cytology Blood tests Cystoscopy CT scan or CT urography MRI or MR urography Ultrasound of the kidney Kidney biopsy Last Reviewed Date: 11/25/202219998861-4260 [employer]. All rights reserved. This information is not intended as a substitute for professional medical care. Always follow your healthcare professional's instructions. documented in this encounter Plan of Treatment Upcoming Encounters Date Type Department Care Team (Late st Contact Info) Description 03/02/2023 9:20 AM EST Office Visit General Surgery, [place] [address] [place] [address] Carlos Schilling MD [address] [place] [address] 03/10/2023 2:15 PM EST Office Visit Hematology/Oncology [facility] [place] [address] [facility] [place] [address] Virgen Aquino MD [address] [facility] [place] [address] 06/17/2023 10:00 AM EST Office Visit [address] [id number] Sherice Silva MD [address] [place] [address] [phone] Maintenance Due Date Last Done Comments Diabetic Eye Exam 1963 Hepatitis C Screening 1963 DTaP,Tdap,and Td Vaccines (1 - Tdap) 1965 Zoster Vaccines (1 of 2) 1996 Hepatitis B (1 of 3 - Risk 3-dose series) 2006 HbA1c 10/26/2022 04/28/2022, 07/0 08/2021, 01/11/2002, Additional history exists COVID-19 Vaccine (3 - 2023-24 season) 2022 08/01/2020, 07/11/2020 Influenza Vaccine (FLU shot) (#1) 2022 03/18/2022, 03/27/2020, 03/01/2018, Additional history exists Albumin/Creatinine Ratio 05/09/2023 023, 05/12/2020, 05/12/2020 Diabetic Foot Exam 05/09/2023 05/09/2022 Depression Screening 12/05/2023 12/04/2022 GFR 03/01/2024 03/01/2023, 1105/2022, 07/02/2022, Additional history exists Pneumococcal Vaccine: 65+ Years Completed 05/09/2022 Colonoscopy Discontinued 08/26/2022, 08/26/2022 Colorectal Cancer Screening Discontinued Cologuard Discontinued Fecal Occult Blood Test Discontinued GARDASIL-HPV IMMUNIZATION SERIES Aged Out No longer eligible based on patient's age to complete this topic MENINGOCOCCAL (MENACTRA/MENVEO) Aged Out No longer eligible based on patient's age to complete this topic Sigmoidoscopy Discontinued documented as of this encounter Medical Devices Not on filedocumented as of this encounter Procedures Procedure Name Priority Date/Time Associated Diagnosis Comments DIFFERENTIAL, AUTOMATED STAT 03/01/2023 11:37 AM EST BASIC METABOLIC PANEL STAT 03/01/2023 11:37 AM EST CBC STAT 03/01/2023 11:37 AM EST CBC STAT 03/01/2023 11:37 AM EST EXTRA SYRINGE Routine 03/01/2023 11:34 AM EST EXTRA LIGHT BLUE TOP Routine 03/01/2023 11:34 AM EST EXTRA TUBES Routine 03/01/2023 11:34 AM EST MICROSCOPIC EXAM, URINE STAT 03/01/2023 11:31 AM EST URINALYSIS, REFLEX TO MICROSCOPIC STAT 03/01/2023 11:31 AM EST documented in this encounter Results * DIFFERENTIAL, AUTOMATED (03/01/2023 11:37 AM EST) WBC 5.93 4.00 - 10.80 K/uL 03/01/2023 11:52 AM EST LAB[facility]ATORY [facility] Neutrophils % 68.3 40.0 - 75.0 % 03/01/2023 11:52 AM EST LABORATORY [facility] Lymphocytes % 20.2 18.0 - 42.0 % 03/01/2023 11:52 AM EST [facility] Monocytes % 9.1 1.0 - 11.0 % 03/01/2023 11:52 AM EST [facility] Eosinophils % 2.2 0.0 - 6.0 % 03/01/2023 11:52 AM EST [facility] Basophils % 0.2 0.0 - 2.0 % 03/01/2023 11:52 AM EST LAB[facility]ATORY [facility] Absolute Neutrophils 4.05 1.80 - 7.70 K/uL 03/01/2023 11:52 AM EST LABORATORY [facility] Absolute Lymphocytes 1.20 1.00 - 4.80 K/ul 03/01/2023 11:52 AM EST LABORATORY [facility] Absolute Monocytes 0.54 0.00 - 1.10 K/uL 03/01/2023 11:52 AM EST LAB[facility]ATORY [facility] Absolute Eosinophils 0.13 0.00 - 0.70 K/uL 03/01/2023 11:52 AM EST LAB[facility]ATORY [facility] Absolute Basophils 0.01 0.00 - 0.20 K/uL 03/01/2023 11:52 AM EST LAB[facility]ORY [facility] Blood Venous blood specimen / Unknown Venipuncture / Unknown 03/01/2023 11:37 AM EST 03/01/2023 11:40 AM EST Nilton Cabrera Jr., PA-C LAB BLOOD ORDERABLES Performing Organization Address City/State/[facility] Co de Phone Number LABORATORY [place] [address] [place] [address] * (ABNORMAL) CBC (03/01/2023 11:37 AM EST) WBC 5.93 4.00 - 10.80 K/uL 03/01/2023 11:52 AM EST LAB[facility]ATORY [facility] RBC 4.38 4.50 - 5.25 M/uL 03/01/2023 11:52 AM EST LAB[facility]ATORY [facility] HGB 10.3(L) 14.0 - 16.8 g/dL 03/01/2023 11:52 AM EST LAB[facility]ORY [facility] HCT 34.5(L) 40.0 - 48.4 % 03/01/2023 11:52 AM EST LAB[facility]ORY [facility] MCV 78.8 82.0 - 99.5 fL 03/01/2023 11:52 AM EST LAB[facility]ORY [facility] MCH 23.5 27.0 - 34.0 pg 03/01/2023 11:52 AM EST LAB[facility]ORY [facility] MCHC 29.9 32.0 - 36.0 g/dL 03/01/2023 11:52 AM EST LAB[facility]ORY [facility] RDW 18.2 11.5 - 15.5 % 03/01/2023 11:52 AM EST LAB[facility]ATORY [facility] PLT 181 140 - 400 K/uL 03/01/2023 11:52 AM EST LAB[facility]ATORY [facility] MPV 9.3 6.6 - 11.1 fL 03/01/2023 11:52 AM EST LAB[facility] Blood Venous blood specimen / Unknown Venipuncture / Unknown 03/01/2023 11:37 AM EST 03/01/2023 11:40 AM EST Nilton Cabrera Jr., PA-C LAB BLOOD ORDERABLES LABORATORY [address] [address] * (ABNORMAL) BASIC METABOLIC PANEL (03/01/2023 11:37 AM EST) BUN 20 6 - 20 mg/dL 03/01/2023 12:08 PM EST LAB[facility] Creatinine 1.3(H) 0.6 - 1.2 mg/dL 03/01/2023 12:08 PM EST LAB[facility]ORY [facility] Estimated Glomerular Filtration Rate 55(L) >=60 mL/min 03/01/2023 12:08 PM EST LAB[facility]ATORY [facility] Comment:eGFR is calculated b ased on the CKD-EPI 2020 equation Sodium 137 135 - 146 mmol/L 03/01/2023 12:08 PM EST LAB[facility]ORY [facility] Potassium 4.5 3.5 - 5.1 mmol/L 03/01/2023 12:08 PM EST LAB[facility] Chloride 101 98 - 107 mmol/L 03/01/2023 12:08 PM EST [facility] CO2 25 22 - 32 mmol/L 03/01/2023 12:08 PM EST [facility] Anion Gap 11 7 - 15 mmol/L 03/01/2023 12:08 PM EST LAB[facility]ATORY [facility] Glucose 179(H) 70 - 120 mg/dL 03/01/2023 12:08 PM EST LAB[facility]ATORY [facility] Calcium 9.0 8.4 - 10.2 mg/dL 03/01/2023 12:08 PM EST [facility] Blood Venous blood specimen / Unknown Venipuncture / Unknown 03/01/2023 11:37 AM EST 03/01/2023 11:40 AM EST Nilton Cabrera Jr., PA-C LAB BLOOD ORDERABLES Performing Organization Address [facility] de Phone Number LABORATORY [address] [address] * EXTRA SYRINGE (03/01/2023 11:34 AM EST) Blood Blood specimen / Unknown 03/01/2023 11:34 AM EST 03/01/2023 11:41 AM EST FaribaHansa Varela DO LAB BLOOD ORDERABL ES Performing Organization Address [facility]/ZIP Co de Phone Number LABORATORY [address] [address] * EXTRA LIGHT BLUE TOP (03/01/2023 11:34 AM EST) Blood Venous blood specimen / Unknown 03/01/2023 11:34 AM EST 03/01/2023 11:41 AM EST Faribalio Varela DO LAB BLOOD ORDERABL ES Performing Organization Address [facility] Co de Phone Number LABORATORY [address] [address] * (ABNORMAL) MICROSCOPIC EXAM, URINE (03/01/2023 11:31 AM EST) RBC, Urine 30-49(A) 0 - 2 /HPF 03/01/2023 12:33 PM EST [facility] WBC, Urine 0-2 0 - 2 /HPF 03/01/2023 12:33 PM EST [facility] Bacteria, Urine 0-25 0 - 25 /HPF 03/01/2023 12:33 PM EST [facility] Urine Urine specimen obtained by clean catch procedure / Unknown Non-blood Collection / Unknown 03/01/2023 11:31 AM EST 03/01/2023 12:16 PM EST Ana Varela DO LAB URINE ORDERABL ES LABORATORY [address] [address] * (ABNORMAL) URINALYSIS, REFLEX TO MICROSCOPIC (03/01/2023 11:31 AM EST) Color, Urine Yellow Light Yellow, Yellow, Dark Yellow 03/01/2023 12:19 PM EST LAB[facility]ORY [facility] Clarity, Urine Slightly Cloudy(A) Clear 03/01/2023 12:19 PM EST [facility] Glucose, Urine >=1000(A) Negative mg/dL 03/01/2023 12:19 PM EST [facility] Bilirubin, Urine Negative Negative 03/01/2023 12:19 PM EST [facility] Ketone, Urine Negative Negative mg/dL 03/01/2023 12:19 PM EST [facility] Specific [place], Urine 1.030 1.003 - 1.030 03/01/2023 12:19 PM EST LAB[facility]ATORY [facility] Blood, Urine Large(A) Negative 03/01/2023 12:19 PM EST [facility] pH, Urine 6.0 5.0 - 7.5 Units 03/01/2023 12:19 PM EST [facility] Protein, Urine 100(A) Negative mg/dL 03/01/2023 12:19 PM EST LAB[facility]ATORY [facility] Urobilinogen, Urine 0.2 0.2, 1.0 mg/dL 03/01/2023 12:19 PM EST [facility] Nitrite, Urine Negative Negative 03/01/2023 12:19 PM EST [facility] Esterase, Urine Negative Negative 03/01/2023 12:19 PM EST [facility] Urine Urine specimen obtained by clean catch procedure / Unknown Non-blood Collection / Unknown 03/01/2023 11:31 AM EST 03/01/2023 12:16 PM EST Ana Varela DO LAB URINE ORDERABL ES LAB[facility]AT[facility] [address] [place] [phone] documented in this encounter Visit Diagnoses Diagnosis Gross hematuria- Primary documented in this encounter Advance Directives Latest Code Status on File Code Status Date Activated Date Inactivated Comments Full Code 06/30/2022 2:54 PM 07/03/2022 4:49 PM This or bertha reflects the patients wishes and were consensually agreed upon. Question Answer Comments Discussion of Advance Directives occurred with: Patient Code Status History Code Status Date Activated Date Inactivated Comments Full Code 04/27/2022 9:37 AM 04/30/2022 5:24 PM This or bertha reflects the patients wishes and were consensually agreed upon. Question Answer Comments Discussion of Advance Directives occurred with: Patient Care Teams Beef Selector Relationship Specialty Start Date End Date Sherice Silva MD [address] [place] [phone] PCP - General Family Medicine 11/27/22 documented as of this encounter
--- OUTSIDE RECORDS SUMMARY | 2023-03-10 23:04 | External Medical Summary ---
Author Name Unknown Address Unknown Organization [id number]:LABORATORY [facility] - [facility] [place] [facility] [address] Laboratory Report Ordering Provider Test Date Status JOSE ANGEL BRITT JR 03/01/2023 11:37:06 Final Observation Date Value Abnormality Reference (Units ) Status WBC, Total 03/01/2023 11:37:06 5.93 4.00-10.8 0 (K/uL) Final RBC 03/01/2023 11:37:06 4.38 4.50-5.25 (M/uL) Final Hemoglobin 03/01/2023 11:37:06 10.3 Below low normal 14 .0-16.8 (g/dL) Final HCT 03/01/2023 11:37:06 34.5 Below low normal 40. 0-48.4 (%) Final MCV 03/01/2023 11:37:06 78.8 82.0-99.5 (fL) Final MCH 03/01/2023 11:37:06 23.5 27.0-34.0 (pg) Final MCHC 03/01/2023 11:37:06 29.9 32.0-36.0 (g/dL) Final RDW 03/01/2023 11:37:06 18.2 11.5-15.5 (%) Final Platelets 03/01/2023 11:37:06 181 140-400 (K /uL) Final MPV 03/01/2023 11:37:06 9.3 6.6-11.1 ( fL) Final Performing Location LABORATORY [facility] [address] [facility] [address]
--- OUTSIDE RECORDS SUMMARY | 2023-03-10 23:04 | External Medical Summary ---
Author Name Unknown Address Unknown Organization [id number]:LABORATORY [facility] - [address] [place] [id number] Laboratory Report Ordering Provider Test Date Status BRAD RODRIGUEZMAN 03/01/2023 11:31:16 Final Observation Date Value Abnormality Reference (Units ) Status RBC, Urine 03/01/2023 11:31:16 30-49 Abnormal 0-2 (/HPF) Final WBC, Urine 03/01/2023 11:31:16 0-2 0-2 (/HPF) Final Bacteria [#/area] in Urine sediment by Microscopy high power field 03/01/2023 11:31:16 0-25 0-25 (/HPF) Final Performing Location LABORATORY [facility] - [facility] [address] [facility] [facility] [address]
--- OUTSIDE RECORDS SUMMARY | 2023-03-10 23:04 | External Medical Summary | Summary of Care ---
Author Name Unknown Organization [facility] Address [address] [place] [address] Phone [phone] Care Team Providers Care Poultryman Name Role Phone Sherice Silva MD Primary Care Prov ider Reason for Visit * Reason Comments NEW PATIENT * Evaluate & Treat - Unlimited Visits (Within 10 days (routine)) - Authorized Specialty Diagnoses / Procedures Referred By Abdirashid colón Referred To Contact SURGICAL ONCOLOGY / Surgical Oncology Diagnoses Gastric adenocarcinoma (HCC) Neto Junior MD [address] [place] [address] Carlos Schilling MD [address] [place] [address] Referral ID Status Reason Start Date Expiration Date Visits Requested Visits Authorized [id number] Authorized Specialty Services Required 02/04/[phone] Encounter Details Date Type Department Care Team (Late st Contact Info) Description 03/02/2023 9:20 AM EST [facility] [address], [place] [phone] Carlos Schilling MD [address] [place] [address] Pre-operative examination* Allergies Active Allergy Reactions Criticality Noted Date [...] mRNA, LNP-s, No Pre serve, 2-Dose Series (Elephanti) 08/01/2020,07/11/2020 Pneumococcal Conjugate Vacci ne, 20-valent ([id number]) 05/09/2022 Season Influenza, Quad, PF, Adjuvanted, 65+ [...] Sign Reading Time Taken Comments Blood Pressure 120/76 03/02/2023 9:25 AM EST Pulse 119 03/02/2023 9:25 AM EST Temperature 36.3 C (97.3 F) 03/02/2023 9:25 AM ES T Respiratory Rate - - Oxygen Saturation 96% 03/02/2023 9:25 AM EST Inhaled Oxygen Concentration - - Weight 102.5 kg (225 lb 14.4 oz) 03/02/2023 9:25 AM EST Height 167.6 cm (5' 6") 03/02/2023 9:25 AM EST Body Mass Index 36.46 03/02/2023 9:25 AM EST documented in this encounter Functional [...] No 04/27/2022 documented as of this encounter Progress Notes * Wai Sanchez, Wenceslao Fernandez MD - 03/02/2023 9:20 AM EST Images from the original note were not included. SURGICAL ONCOLOGY INITIAL VISIT Bjorn Zapata 1945 Date of Service: 03/02/2023 Reason for visit: gastric adenocarcinoma HPI: Bjorn Zapata is a 77 year old male presenting for surgical discussion regarding newly-diagnosed gastric cancer. Originally underwent EGD 01/23/2023 for workup of iron-deficiency anemia, found to have a malignant-appearing mass in the gastric body. Biopsy ultimately revealed gkhlelevum-kd-fxfkkc differentiated adenocarcinoma. CT a/p 01/30/23 demonstrated a 3cm bladder mass but no other evidence of potential distant metastases. Ultimate staging [id number]. Patient was subsequently seen by Dr. Aquino 02/09/23, who recommended neoadjuvant FLOT should patient be deemed a surgical candidate. Patient was subsequently referred to Surgical Oncology for surgical discussion. Today, patient states he generally feels well overall. States that he has had episodic RUQ pains for several years which is stable. Otherwise, denies nausea, vomiting, CP, SOB, changes in bowel or bladder, fever, chills, headache, lightheadedness, changes in vision or hearing, or loss of balance. Of note, patient was found to have a 3cm bladder mass on his 01/30/23 CT and experienced an episode of hematuria yesterday. Scheduled for cystoscopy with Urology at [facility] (Dr. Harding) 03/09/2023. Hx afib on metoprolol. Had a STEMI ~30 years ago, treated with PCI. Currently takes bASA and no other blood thinners. Prior abdominal surgical history includes cholecystectomy. Past Medical History: Diagnosis Date Abdominal pain Anemia HTN, goal below 140/90 05/28/2001 Impotence of organic origin 05/28/2001 Past Surgical History: Procedure Laterality Date COLONOSCOPY 08/2020 [facility] DENTAL SURGERY PROCEDURE NEC 2 teeth extracted EGD, W/ENDOSCOPIC US 02/03/2023 ESOPHAGOGASTRODUODENOSCOPY (EGD), FLEXIBLE, TRANSORAL, ENDOSCOPIC ULTRASOUND performed by Neto Junior MD at ENDOSCOPY [facility] REMOVE GALLBLADDER 03/27/1998 Family History Problem Relation Age of Onset Diabetes Mother Diabetes Father Cancer Father skin Diabetes Sister Heart Disorder Brother CAD - late 50's Social History Socioeconomic History Marital status: Spouse name: Gwen Number of children: 3 Years of education: Not on file Highest education level: Not on file Occupational History Occupation: [employer] Tobacco Use Smoking status: Former Packs/day: 1.00 Years: 30.00 Additional pack years: 0.00 Total pack years: 30.00 Types: Cigarettes Smokeless tobacco: Never Vaping Use Vaping Use: Never used Substance and Sexual Activity Alcohol use: Never Drug use: Never Sexual activity: Yes Partners: Female Other Topics Concern Not on file Social History Narrative Not on file Social Determinants of Health Financial Resource Strain: Not on file Food Insecurity: No Food Insecurity (12/04/2022) Hunger Vital Sign Worried About Running Out of Food in the Last Year: Never true Ran Out of Food in the Last Year: Never true Transportation Needs: Not on file Physical Activity: Not on file Stress: Not on file Social Connections: Not on file Intimate Partner Violence: Not on file Housing Stability: Not on file Current Outpatient Medications Medication Sig Dispense Refill Insulin Detemir 100 UNIT/ML Subcutaneous Solution (Levemir) Inject 20 Units under the skin daily. metFORMIN HCl 500 MG Oral Tablet (Glucophage) Take 2 Tablets by mouth 2 times a day with morning and evening meals. Simvastatin 80 MG Oral Tablet (Zocor) Take 0.5 Tablets by mouth at bedtime. Aspirin 81 MG Oral Capsule Take 81 mg by mouth daily. Metoprolol Succinate ER 50 MG Oral Tablet Extended Release 24 Hour (toPROL XL) Take 1 Tablet by mouth in the morning. Do not start before May 01, 2022. 30 Tablet 0 PARoxetine HCl 20 MG Oral Tablet (pAXil) Take 1 Tablet by mouth at bedtime. Furosemide 40 MG Oral Tablet (Lasix) Take 1 Tablet by mouth as needed. Weight gain of 3 lbs in one day. Cyanocobalamin 1000 MCG Oral Tablet Take 1 Tablet by mouth in the morning. Empagliflozin 10 MG Oral Tablet (Jardiance) Take 1 Tablet by mouth every evening. Tamsulosin HCl 0.4 MG Oral Capsule (Flomax) Take 1 Capsule by mouth in the morning. 90 Capsule 3 Omeprazole 20 MG Oral Tablet Delayed Release Disintegrating Take by mouth at bedtime. Insulin Glargine 100 UNIT/ML Subcutaneous Solution Pen-injector (Lantus) Inject 40 Units under the skin in the morning. No current facility-administered medications for this visit. Review of patient's allergies indicates: Allergen Reactions Ozempic (0.25 Or 0.5 Mg-Dose) [Semaglutide(0.25 Or 0.5mg-Dos)] Stomach pain/cramps Duloxetine Hcl Edema Other Eliquis [Apixaban] Itching and Rash Review of Systems: All others negative other than those noted in the HPI. Physical Exam: Filed Vitals: 03/02/23 0925 BP: 120/76 Pulse: 119 Temp: 36.3 C (97.3 F) SpO2: 96% Weight: 102.5 kg (225 lb 14.4 oz) Height: 1.676 m (5' 6") Physical Exam: Constitutional: no acute distress Head: normal: normocephalic, atraumatic; no masses, tenderness, or adenopathy Eyes: sclera and conjunctiva normal Neck: supple, trachea midline CV: normal rate and rhythm Chest: normal respiratory effort, chest wall normal Abdomen: soft, nondistended, nontender Extremities: no clubbing, cyanosis, or edema, otherwise grossly normal, warm, and dry Skin: warm, dry Neuro: alert, GCS 15 Labs: Results for orders placed or performed during the hospital encounter of 06/30/22 COMPREHENSIVE METABOLIC PANEL Result Value Ref Range BUN 25 (H) 6 - 20 mg/dL Creatinine 1.3 (H) 0.6 - 1.2 mg/dL Estimated Glomerular Filtration Rate 56 (L) >=60 mL/min Sodium 137 135 - 146 mmol/L Potassium 4.6 3.5 - 5.1 mmol/L Chloride 103 98 - 107 mmol/L CO2 25 22 - 32 mmol/L Anion Gap 9 7 - 15 mmol/L Glucose 158 (H) 70 - 120 mg/dL Albumin 3.4 (L) 3.8 - 5.0 g/dL AST 34 10 - 50 U/L Alkaline Phosphatase 76 35 - 130 U/L Bilirubin, Total 0.4 <=1.2 mg/dL Calcium 8.7 8.4 - 10.2 mg/dL Protein 5.9 (L) 6.0 - 8.3 g/dL ALT 22 10 - 50 U/L Results for orders placed or performed during the hospital encounter of 03/01/23 CBC Result Value Ref Range WBC 5.93 4.00 - 10.80 K/uL RBC 4.38 4.50 - 5.25 M/uL HGB 10.3 (L) 14.0 - 16.8 g/dL HCT 34.5 (L) 40.0 - 48.4 % MCV 78.8 82.0 - 99.5 fL MCH 23.5 27.0 - 34.0 pg MCHC 29.9 32.0 - 36.0 g/dL RDW 18.2 11.5 - 15.5 % PLT 181 140 - 400 K/uL MPV 9.3 6.6 - 11.1 fL Results for orders placed or performed during the hospital encounter of 03/01/23 DIFFERENTIAL, AUTOMATED Result Value Ref Range WBC 5.93 4.00 - 10.80 K/uL Neutrophils % 68.3 40.0 - 75.0 % Lymphocytes % 20.2 18.0 - 42.0 % Monocytes % 9.1 1.0 - 11.0 % Eosinophils % 2.2 0.0 - 6.0 % Basophils % 0.2 0.0 - 2.0 % Absolute Neutrophils 4.05 1.80 - 7.70 K/uL Absolute Lymphocytes 1.20 1.00 - 4.80 K/ul Absolute Monocytes 0.54 0.00 - 1.10 K/uL Absolute Eosinophils 0.13 0.00 - 0.70 K/uL Absolute Basophils 0.01 0.00 - 0.20 K/uL CBC Result Value Ref Range WBC 5.93 4.00 - 10.80 K/uL RBC 4.38 4.50 - 5.25 M/uL HGB 10.3 (L) 14.0 - 16.8 g/dL HCT 34.5 (L) 40.0 - 48.4 % MCV 78.8 82.0 - 99.5 fL MCH 23.5 27.0 - 34.0 pg MCHC 29.9 32.0 - 36.0 g/dL RDW 18.2 11.5 - 15.5 % PLT 181 140 - 400 K/uL MPV 9.3 6.6 - 11.1 fL Results for orders placed or performed in visit on 03/15/03 CBC/DIFF Result Value Ref Range WBC 6.36 4.0 - 10.8 K/uL RBC 5.09 4.5 - 5.5 M/uL HGB 15.7 13.7 - 16.5 g/dL HCT 43.6 40 - 47 % MCV 85.7 82 - 97 fL MCH 30.8 27 - 33 pg MCHC 36.0 33 - 36 g/dL RDW 13.0 11.7 - 14.6 % PLT 138 (L) 150 - 400 K/uL MPV 9.9 8.8 - 12.0 fL DIFF TYPE AUTO Neutrophils % 55 40 - 75 % Lymphocytes % 35 18 - 42 % Monocytes % 8 1 - 11 % Eosinophils % 2 0 - 6 % Basophils % 0 0 - 2 % ABS. SEGS 3.48 1.8 - 7.7 K/uL Absolute Lymphocytes 2.21 1.0 - 4.8 K/uL Absolute Monocytes 0.51 0.0 - 1.1 K/uL Absolute Eosinophils 0.15 0.0 - 0.7 K/uL Absolute Basophils 0.01 0.0 - 0.2 K/uL RBC MORPH NORMAL Imaging: PET CT Skull Base to Mid Thigh 02/19/2023: IMPRESSION Hypermetabolic gastric mass without evidence of metastasis. Remainder of metabolism throughout the stomach is favored to be physiologic or gastritis. EUS 02/03/2023: Impression: - Malignant gastric tumor in the gastric body on the greater curvature of the stomach consistent with known adenocarcinoma. This was staged T2 N1 Mx by endosonographic criteria. - The celiac trunk was endosonographically normal. - No specimens collected. CT C/A/P 01/30/2023: Impression: 77 year old male presents with gastric adenocarcinoma. Plan: - Follow-up cystoscopy results; if metastatic or synchronous cancer, would likely not benefit from surgical intervention - If cystoscopy does not reveal cancer then would plan for total gastrectomy after neoadjuvant therapy per MedOnc - F/U after cystoscopy Patient was examined and was discussed with Dr. Schilling. Wenceslao Carreno Jr, MD PGY-4, Department of General Surgery 03/02/2023 11:06 AM I have discussed the patient's management with the medical trainee and agree with the note. Please refer to the documented findings and plan of care. This patient's visit today consisted of an evaluation. I was present and confirmed the findings of the history and exam. Gastric cancer- discussed treatment with lee ann-op chemo and surgery- - we also discussed the bladder tumor- he is getting cysto with biopsy next week - he is uncertain if he wants to proceed with surgery or treatment - he will let us know his decision Carlos Schilling MD water and gas helper Section Head, Surgical Oncology and Endocrine Surgery [facility] [address] [place] [address] Office: [phone] [email or web address] documented in this encounter Plan of Treatment Upcoming Encounters Date Type Department Care Team (Late st Contact Info) Description 03/10/2023 2:15 PM EST Office Visit Hematology/Oncology [employer] [address] [facility] [place] [address] Virgen Aquino MD [address] [facility] [place] [address] 06/17/2023 10:00 AM EST Office Visit [facility] [address] [place], [place] [phone] Sherice Silva MD [address] [place], [place] [phone] Scheduled Referrals Name Type Priority Associated Diagnoses Orde r Schedule SURGICAL ONCOLOGY REFERRAL OP Referral Within 10 days (routine) Gastric adenocarcinoma (HCC) Ordered: 02/03/2023 Health Maintenance Due Date Last Done Comments Diabetic Eye Exam 1963 Hepatitis C Screening 1963 DTaP,Tdap,and Td Vaccines (1 - Tdap) 1965 Zoster Vaccines (1 of 2) 1996 Hepatitis B (1 of 3 - Risk 3-dose series) 2006 HbA1c 10/26/2022 04/28/2022, 070 08/2021, 01/11/2002, Additional history exists COVID-19 Vaccine (3 - season) 2022 08/01/2020, 07/11/2020 Influenza Vaccine (FLU shot) (#1) 2022 03/18/2022, 03/27/2020, 03/01/2018, Additional history exists Albumin/Creatinine Ratio 05/09/2023 023, 05/12/2020, 05/12/2020 Diabetic Foot Exam 05/09/2023 05/09/2022 Depression Screening 12/05/2023 12/04/2022 GFR 03/01/2024 03/01/2023, 110 05/2022, 07/02/2022, Additional history exists Pneumococcal Vaccine: 65+ [...] Not on filedocumented as of this encounter Visit Diagnoses Diagnosis Pre-operative examination- Primary Preoperative examination, unspecified documented in this encounter Advance Directives Latest [...] Advance Directives occurred with: Patient Care Teams Poultryman Relationship Specialty Start Date End Date Sherice Silva MD [address] [place] [address] PCP - General Family Medicine 11/27/22 documented as of this encounter
--- OUTSIDE RECORDS SUMMARY | 2023-03-10 23:04 | External Medical Summary ---
Author Name Unknown Address Unknown Organization K1G:[facility] - [address] [place] [phone] Laboratory Report Ordering Provider Test Date Status NAHEED BRITTJARED KELLY 03/01/2023 11:37:06 Final Observation Date Value Abnormality Reference (Units ) Status BUN 03/01/2023 11:37:06 20 6-20 (mg/dL) Final Creatinine 03/01/2023 11:37:06 1.3 Above high normal 0.6-1.2 (mg/dL) Final Glomerular filtration rate/1.73 sq M.predicted [Volume Rate/Area] in Serum, Plasma or Blood by Creatinine-based formula (CKD-EPI) 03/01/2023 11:37:06 55 Below low normal >=60 (mL/min) Final eGFR is calculated based on the CKD-EPI 2020 equation SODIUM 03/01/2023 11:37:06 137 135-146 (m mol/L) Final Potassium 03/01/2023 11:37:06 4.5 3.5-5.1 (m mol/L) Final Cl 03/01/2023 11:37:06 101 98-107 (mm ol/L) Final CO2 03/01/2023 11:37:06 25 22-32 (mmo l/L) Final Anion gap 03/01/2023 11:37:06 11 7-15 (mmol /L) Final Glucose 03/01/2023 11:37:06 179 Above high normal 70 -120 (mg/dL) Final Calcium 03/01/2023 11:37:06 9.0 8.4-10.2 ( mg/dL) Final Performing Location [facility] - [address] [facility] [id number]
--- OUTSIDE RECORDS SUMMARY | 2023-03-10 23:05 | External Medical Summary | Summary of Care ---
Author Name Unknown Organization [facility] Address [address] [place] [address] Phone [phone] Care Team Providers Care Handle Finisher Name Role Phone Sherice Silva MD Primary Care Prov ider Reason for Referral * Precert (Within 10 days (routine)) - Pending Review Specialty Diagnoses / Procedures Referred By Abdirashid t Referred To Contact Radiology Diagnoses Gastric adenocarcinoma (HCC) Procedures PET CT SKULL BASE TO MID-THIGH PET SKULL BASE TO MID-THIGH Carlos Schilling MD [address] [place] [address] Referral ID Status Reason Start Date Expiration Date V isits Requested Visits Authorized [id number] Pending Review 02/11/2023 999 999 * Evaluate & Treat - Unlimited Visits (Within 10 days (routine)) - Pending Review Specialty Diagnoses / Procedures Referred By Abdirashid t Referred To Contact Hematology/Oncology / Hematology Oncology Diagnoses Gastric adenocarcinoma (HCC) Carlos Schilling MD [address] [place] [address] Referral ID Status Reason Start Date Expiration Date Visits Requested Visits Authorized [id number] Pending Review Specialty Services Required 3 [phone] Question Answer Referral Priority Within 10 days (routine) Where should this appointment be scheduled? [facility] Reason for Referral Malignant Oncology (Solid Organ Cancer) Comments New gastric adenocarcinoma Reason for Visit * Reason Onset Date Comments Referral 02/03/2023 Encounter Details Date Type Department Care Team Description 02/03/2023 Telephone General Surgery, [facility] [address] [place] [address] Carlos Schilling MD [address] [place] [address] Referral Allergies Active Allergy Reactions Severity Noted Date Comments Duloxetine Hcl Edema Other 04/27/2022 Apixaban Itching,Rash 01/28/2023 Semaglutide(0.25 Or 0.5mg-Dos) Medium 04/21 Stomach pain/cramps documented as of this encounter (statuses as of 02/12/2023) Medications Medication Sig Dispensed Refills Start Date [...] the skin in the morning. 0 Active Cholecalciferol 25 MCG (1000 UT) Oral Capsule Take 1 Capsule by mouth in the morning and 1 Capsule before bedtime. 0 3 Discontinue d(Medicatio n List Clean Up) Pantoprazole Sodium 40 MG Oral Tablet Delayed Release (Protonix) TAKE 1 TABLET BY MOUTH TWICE DAILY (MORNING AND BEDTIME) 60 Tablet 3 08/13/2022 3 Discontinue d(Medicatio n List Clean Up) Eliquis 5 MG Oral Tablet (Apixaban) TAKE 1 TABLET BY MOUTH TWICE DAILY (MORNING AND BEDTIME) 180 Tablet 1 12/30/2022 3 Discontinue d(Medicatio n List Clean Up) documented as of this encounter (statuses as of 02/12/2023) Active Problems Problem Noted Date Malignant neoplasm of overlapping sites of stomach 02/09/2023 Hypertensive heart disease with congesti ve heart failure 12/04/2022 AAA (abdominal aortic aneurysm) 07/10/19 23 Overview: 3.0 cm AAA noted on CT abd/pel 06/30/22 Atrial fibrillation 07/08/2022 Intractable nausea and vomiting 07/01/19 Heart failure with acute decompensation, type unknown 04/27/2022 Atherosclerosis of coronary artery 04/21 BPH (benign prostatic hyperplasia) 04/21 Morbid obesity 04/21/2022 Type 2 diabetes mellitus with diabetic p olyneuropathy 03/19/2022 Diabetes mellitus without complication 0 12/05/2021 Hyperlipidemia 12/05/2021 HUMBLE (generalized anxiety disorder) 12/05 B12 deficiency 12/05/2021 Vitamin D deficiency 12/05/2021 Sciatica 12/29/1997 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 BENIGN HYPERTENSION IMPOTENCE, ORGANIC ORIGN documented as of this encounter (statuses as of 02/12/2023) Resolved Problems Problem Noted Date Resolved Date Viral pneumonia 04/27/2022 04/30/2022 documented as of this encounter (statuses as of 02/12/2023) Immunizations Name Administration Dates Next Due COVID-19 mRNA, LNP-s, No Pre serve, 2-Dose Series ([place]) 08/01/2020,07/11/2020 Pneumococcal Conjugate Vacci ne, 20-valent ([id number]) 05/09/2022 Season Influenza, Quad, PF, Adjuvanted, 65+ [...] drink = 0.6 oz pur e alcohol) Food Insecurity Answer Date Recorded Within the past 12 months, y ou worried that your food would run out before you got money to buy more. Never true 12/04/2022 Within the past 12 months, t he food you bought just didn't last and you didn't have money to get more. Never true 12/04/2022 Sex Assigned at Date Recorded Male 12/04/2022 6:49 AM E DT Job Start Date Occupation Industry Not on file Not on file Not on file documented as of this encounter Functional Status Functional Status Response [...] No 04/27/2022 documented as of this encounter Miscellaneous Notes * Telephone Encounter - Marilyn Ceja RN - 02/04/2023 11:01 AM EDT Call to patient. Patient identified by name and date of . Reviewed need for PET and for HemOnc referral. They will be reaching out to him to schedule. Aware we need PET first. I will follow for scheduling of PET. Will add to [facility] to review and contact patient for appointment with Dr Schilling. * Telephone Encounter - Mrailyn Ceja RN - 02/03/2023 9:39 AM EDT Images from the original note were not included. Referral from Dr Junior for gastric adenocarcinoma. Found during workup for ZENAIDA. Will need PET and referral to HemOnc. Patient had EUS performed today. Will defer contact to tomorrow. 01/21/23 Office Visit notes from Gastroenterology Assessment and Plan (1) Iron deficiency anemia: Plan: Patient with a new finding of iron deficiency anemia significantly worsened withdrop of hgb from 11.4 to 7.1. He had recent EGD and colonoscopy in 08/2022. He does admit to eliquis use as well as one episode of dark stools. He is now on oral iron. He is following labs through the [facility]. He was recentlyfound to be FIT negative. hgb has reportedly improved with the addition of iron. - set up EGD to further evaluate sudden anemia. - I do not feel he needs another colonoscopy given his most recent one was unremarkable in 08/2022. - we did discuss setting up capsule endoscopy, but he wishes to hold off for now. - he will continue to follow labs with the [facility]. we discussed if ongoing anemia and EGD unremarkable that capsule should be reconsidered. - would also consider hematological evaluation of anemia. - recommended continuation of omeprazole 40mg daily. - f/u post procedure. 01/23/23 EGD Impression: - Normal esophagus. - Likely malignant gastric tumor in the gastric body. Biopsied. - Normal examined duodenum. Pathology 01/30/23 CT Chest/CT Abd Pelvis ([facility]) IMPRESSION: No evidence of metastatic disease above the diaphragm. IMPRESSION: 1. There is a large enhancing mass identified along the left wall of the bladderas detailed above. A urothelial neoplasm is the diagnosis of exclusion. Follow up with urology is recommended. 2. Asymmetric wall thickening along the greater curvature of the stomach likely corresponds to the reported history of a gastric neoplasm. Correlate with endoscopic results. 3. Prominent gastrohepatic lymph nodes are nonspecific. Small matt metastases are not excluded. 4. No additional findings are suspicious for metastatic disease in the abdomen or pelvis. 5. There is a 13 mm nodule within or adjacent to the pancreatic tail. This is similar in attenuation to an adjacent splenule, and this may represent a second intrapancreatic/peripancreatic splenule. Attention at follow-up is recommended. 6. Cardiomegaly. 7. Additional findings as above. 02/03/23 EUS Impression: - Malignant gastric tumor in the gastric body on the greater curvature of the stomach consistent with known adenocarcinoma. This was staged T2 N1 Mx by endosonographic criteria. - The celiac trunk was endosonographically normal. - No specimens collected. documented in this encounter Plan of Treatment Upcoming Encounters Date Type Specialty Care Team Description 02/19/2023 Appointment Radiology 03/02/2023 Office Visit General Surgery Carlos Schilling MD [address] [place] [address] 03/10/2023 Office Visit Hematology Oncology Virgen Aquino MD [address] [place] [address] 06/17/2023 Office Visit Family Medicine Sherice Silva MD [address] [place] [address] Scheduled Orders Name Type Priority Associated Diagnoses Orde r Schedule PET CT SKULL BASE TO MID-THIGH Medical Imaging Routine Gastric adenocarcinoma (HCC) Expected: 02/11/2023 (Approximate), Expires: 03/07/2024 Scheduled Referrals Name Type Priority Associated Diagnoses Orde r Schedule HEMATOLOGY/ONCOLOG Y REFERRAL OP Referral Within 10 days (routine) Gastric adenocarcinoma (HCC) Ordered: 02/04/2023 Health Maintenance Due Date Last Done Comments DIABETES-EYE EXAM 1963 Hepatitis C Screening 1963 DTaP,Tdap,and Td Vaccines (1 - Tdap) 1965 Zoster Vaccines (1 of 2) 1996 HbA1c 10/26/2022 04/28/2022, 07/0 08/2021, 01/11/2002, Additional history exists COVID-19 Vaccine (3 - 24 season) 2022 08/01/2020, 07/11/2020 Influenza Vaccine (FLU shot) (#1) 2022 03/18/2022, 03/27/2020, 03/01/2018, Additional history exists Albumin/Creatinine Ratio 05/09/2023 023, 05/12/2020, 05/12/2020 Diabetic Foot Exam 05/09/2023 05/09/2022 GFR 07/03/2023 07/02/2022, 0310/2022, 06/30/2022, Additional history exists Depression Screening 12/05/2023 12/04/2022 Pneumococcal Vaccine: 65+ Years Completed 05/09/2022 Colonoscopy Discontinued 08/26/2022, 08/26/2022 Colorectal Cancer Screening Discontinued Cologuard Discontinued Fecal Occult Blood Test Discontinued GARDASIL-HPV IMMUNIZATION SERIES Aged Out No longer eligible based on patient's age to complete this topic Hepatitis B Aged Out No longer eligi ble based on patient's age to complete this topic MENINGOCOCCAL (MENACTRA/MENVEO) Aged Out No longer eligible based on patient's age to complete this topic Sigmoidoscopy Discontinued documented as of this encounter Medical Devices Not on filedocumented as of this encounter Visit Diagnoses Diagnosis Gastric adenocarcinoma (HCC)- Primary Malignant neoplasm of stomach, unspecified site documented in this encounter Additional Health Concerns Infection Onset Date Last Indicated Resolved Time Norovirus 07/01/2022 07/01/2022 02/03/2023 7:22 AM EDT documented as of this encounter Advance Directives Latest Code Status [...] Advance Directives occurred with: Patient Care Teams Handle Finisher Relationship Specialty Start Date End Date Sherice Silva MD [address] [place] [address] PCP - General Family Medicine 11/27/22 documented as of this encounter
--- OUTSIDE RECORDS SUMMARY | 2023-03-10 23:05 | External Medical Summary | Summary of Care ---
Author Name Unknown Organization [facility] Address [address] [place] [address] Phone [phone] Care Team Providers Care Hairspring Setter Name Role Phone Sherice Silva MD Primary Care Prov ider Reason for Referral * Precert (Within 10 days (routine)) - Authorized Specialty Diagnoses / Procedures Referred By Contac t Referred To Contact Radiology Diagnoses Malignant neoplasm of stomach (HCC) Procedures PET CT SKULL BASE TO MID-THIGH Abilio Méndez MD [address] [place] [address] Referral ID Status Reason Start Date Expiration Date V isits Requested Visits Authorized [id number] Authorized Precert 02/06/2023 04/20/2023 999 999 Reason for Visit * Precert (Within 10 days (routine)) - Authorized Specialty Diagnoses / Procedures Referred By Contac t Referred To Contact Radiology Diagnoses Malignant neoplasm of stomach (HCC) Procedures PET CT SKULL BASE TO MID-THIGH Abilio Méndez MD [address] [place] [address] Referral ID Status Reason Start Date Expiration Date V isits Requested Visits Authorized [id number] Authorized Precert 02/06/2023 04/20/2023 999 999 Encounter Details Date Type Department Care Team (Latest Contact Info) Description 02/19/2023 9:00 AM EDT - 02/19/2023 11:59 PM EDT Hospital Encounter PET CT IMAGING, [facility] [address], [place] [id number] Arrived Discharge Disposition: Home - Self Care Allergies Active Allergy Reactions Criticality Noted Date Comments Duloxetine Hcl Edema Other 04/27/2022 Apixaban Itching,Rash 01/28/2023 Semaglutide(0.25 Or 0.5mg-Dos) Medium 04/21/2022 Stomach pain/cramps documented as of this encounter (statuses as of 02/20/2023) Medications Medication Sig Dispensed Refills Start Date [...] as of this encounter (statuses as of 02/20/2023) Active Problems Problem Noted Date Diagnosed Date [...] as of this encounter (statuses as of 02/20/2023) Resolved Problems Problem Noted Date Diagnosed Date Resolved Date Viral pneumonia 04/27/2022 04/30/2022 documented as of this encounter (statuses as of 02/20/2023) Immunizations Name Administration Dates Next Due COVID-19 mRNA, LNP-s, No Pre serve, 2-Dose Series ([place] [employer]) 08/01/2020,07/11/2020 Pneumococcal Conjugate Vacci ne, 20-valent ([id number]) 05/09/2022 Season Influenza, Quad, PF, Adjuvanted, 65+ [...] money to buy more. Never true 12/05/19 Within the past 12 months, t he [...] No 04/27/2022 documented as of this encounter Plan of Treatment Upcoming Encounters Date Type Department Care Team (Late st Contact Info) Description 03/02/2023 9:20 AM EST Office Visit General Surgery, [place] [address] [place] [address] Carlos Schilling MD [address] [place] [address] 03/10/2023 2:15 PM EST Office Visit Hematology/Oncology [facility] [address] [place] [address] Virgen Aquino MD [address] [place] [address] 06/17/2023 10:00 AM EST Office Visit [facility] [address] [place], [place] [phone] Sherice Silva MD [address] [place] [address] Health Maintenance Due Date Last Done Comments DIABETES-EYE EXAM 1963 Hepatitis C Screening 1963 DTaP,Tdap,and Td Vaccines (1 - Tdap) 1965 Zoster Vaccines (1 of 2) 1996 Hepatitis B (1 of 3 - Risk 3-dose series) 2006 HbA1c 10/26/2022 04/28/2022, 070 08/2021, 01/11/2002, Additional history exists COVID-19 Vaccine (3 - 2022- season) 2022 08/01/2020, 07/11/2020 Influenza Vaccine (FLU shot) (#1) 2022 03/18/2022, 03/27/2020, 03/01/2018, Additional history exists Albumin/Creatinine Ratio 05/09/2023 023, 05/12/2020, 05/12/2020 Diabetic Foot Exam 05/09/2023 05/09/2022 GFR 07/03/2023 07/02/2022, 030 10/2022, 06/30/2022, Additional history exists Depression Screening 12/05/2023 [...] Procedure Name Priority Date/Time Associated Diagnosis Comments PET CT SKULL BASE TO MID-THIGH Routine 02/19/2023 10:37 AM EDT Malignant neoplasm of stomach (HCC) GLUCOSE METER, POINT OF CARE AYANA 02/19/2023 9:06 AM EDT documented in this encounter Results * PET CT SKULL BASE TO MID-THIGH (02/19/2023 10:37 AM EDT) Anatomical Region Laterality Modality Body, Chest, Abdomen, Pelvis Pos itron Emission Tomography (PET) 02/19/2023 11:1 5 AM EDT Impressions 02/19/2023 11:12 AM EDT IMPRESSION Hypermetabolic gastric mass without evidence of metastasis. Remainder of metabolism throughout the stomach is favored to be physiologic or gastritis. Narrative 02/19/2023 11:12 AM EDT EXAM PET CT SKULL BASE TO MID-THIGH - 02/19/2023 10:37 am HISTORY gastric cancer COMPARISON Outside CT chest abdomen pelvis from 01/30/2023 TECHNIQUE PET imaging was performed from the skull base to the mid thighs minutes following the intravenous administration of mCi of F-18 fluorodeoxyglucose (FDG). Water soluble oral contrast was administered. Low-dose CT was performed for anatomic localization and attenuation correction purposes and fused with the PET images. The patient's glucose level at the time of radiotracer injection was mg/dL. FINDINGS PET SCAN: Maximum blood pool SUV: 2.8 Maximum hepatic SUV: 3.7 SKULL BASE/NECK: Metabolic activity is within normal limits. Unenhanced CT images demonstrate no acute abnormalities. CHEST: Metabolic activity is within normal limits. Unenhanced CT images demonstrate no acute abnormalities. Severe multivessel coronary artery calcifications. Trace pericardial effusion. No worrisome pulmonary nodules, masses, consolidation or effusion. Sub 4 mm nodules are below PET resolution. 9 mm short axis prevascular and right paratracheal lymph nodes are without significant hypermetabolism, likely reactive. No hilar or axillary lymphadenopathy. ABDOMEN/PELVIS: * 4.3 x 2.3 cm greater curvature of the stomach hypermetabolic soft tissue mass, SUV 13.3. * Increased hypermetabolism along the lesser curvature of the stomach without mass, SUV 6.4 favored to be physiologic peristalsis or gastritis. Pylorus hypermetabolism, SUV 6.5, is likely physiologic. * Diffuse physiologic linear metabolism throughout the bowel may mask underlying disease Unenhanced CT images demonstrate no acute abnormalities. No lymphadenopathy. Cholecystectomy. Normal appendix. Aortoiliac vascular calcifications. MUSCULOSKELETAL: Metabolic activity is within normal limits. Unenhanced CT images demonstrate no acute abnormalities. Degenerative changes without aggressive osseous lesions. Intact posterior fusion orthopedic hardware from L4-S1. 2 cm fat containing umbilical hernia. Procedure Note Gordy Daniel DO - 02/19/[address] SKULL BASE TO MID-THIGH - 02/19/2023 10:37 am HISTORY gastric cancer COMPARISON Outside CT chest abdomen pelvis from 01/30/2023 TECHNIQUE PET imaging was performed from the skull base to the mid thighs minutesfollowing the intravenous administration of mCi of F-18fluorodeoxyglucose (FDG). Water soluble oral contrast was administered.Low-dose CT was performed for anatomic localization and attenuationcorrection purposes and fused with the PET images. The patient's glucoselevel at the time of radiotracer injection was mg/dL. FINDINGS PET SCAN: Maximum blood pool SUV: 2.8 Maximum hepatic SUV: 3.7 SKULL BASE/NECK: Metabolic activity is within normal limits. Unenhanced CT images demonstrate no acute abnormalities. CHEST: Metabolic activity is within normal limits. Unenhanced CT images demonstrate no acute abnormalities. Severemultivessel coronary artery calcifications. Trace pericardial effusion.No worrisome pulmonary nodules, masses, consolidation or effusion. Sub 4mm nodules are below PET resolution. 9 mm short axis prevascular andright paratracheal lymph nodes are without significant hypermetabolism,likely reactive. No hilar or axillary lymphadenopathy. ABDOMEN/PELVIS: * 4.3 x 2.3 cm greater curvature of the stomach hypermetabolic soft tissuemass, SUV 13.3. * Increased hypermetabolism along the lesser curvature of the stomachwithout mass, SUV 6.4 favored to be physiologic peristalsis or gastritis.Pylorus hypermetabolism, SUV 6.5, is likely physiologic. * Diffuse physiologic linear metabolism throughout the bowel may maskunderlying disease Unenhanced CT images demonstrate no acute abnormalities. Nolymphadenopathy. Cholecystectomy. Normal appendix. Aortoiliac vascularcalcifications. MUSCULOSKELETAL: Metabolic activity is within normal limits. Unenhanced CT images demonstrate no acute abnormalities. Degenerativechanges without aggressive osseous lesions. Intact posterior fusionorthopedic hardware from L4- S1. 2 cm fat containing umbilical hernia. IMPRESSION IMPRESSION Hypermetabolic gastric mass without evidence of metastasis. Remainder ofmetabolism throughout the stomach is favored to be physiologic orgastritis. Abilio Rivera MD RAD NUCL EAR MED * GLUCOSE METER, POINT OF CARE (02/19/2023 9:06 AM EDT) Glucose Meter 105 70 - 120 mg/dL 02/19/2023 9:16 AM EDT [facility] Blood Whole blood specimen / Unknown 02/19/2023 9:06 AM EDT 02/19/2023 9:16 AM EDT No Physician Data Unknown LAB POINT OF C ARE TEST DOCKED DEVICE UNSOLICITED RESULTS [facility] [address] [place] [address] documented in this encounter Visit Diagnoses Diagnosis Malignant neoplasm of stomach (HCC) Malignant neoplasm of stomach, unspecified site documented in this encounter Administered Medications Inactive Administered Medications - up to 3 most recent administrations Medication Order MAR Action Action Date Dose Rate Site fludeoxyglucose f-18 (Fdg) inj 10 millicurie 10 millicurie, Intravenous, ONCE, On Jia 02/19/23 at 0919, For 1 dose, Radiology Medication Routing (Non-IR) Given 02/19/2023 9:07 AM EDT 11 millicuries Hand Right documented in this encounter Advance Directives Latest [...] Advance Directives occurred with: Patient Care Teams Hairspring Setter Relationship Specialty Start Date End Date Sherice Silva MD [address] [place] [address] PCP - General Family Medicine 11/27/22 documented as of this encounter
--- OUTSIDE RECORDS SUMMARY | 2023-03-10 23:05 | External Medical Summary ---
Author Name Unknown Address Unknown Organization : Laboratory Report Ordering Provider Test Date Status NO,UNKNOWN 02/19/2023 09:06:55 Final Observation Date Value Abnormality Reference (Units ) Status Glucose Point of Care 02/19/2023 09:06:55 105 70-120 (mg/dL) Final Performing Location
--- OUTSIDE RECORDS SUMMARY | 2023-03-10 23:05 | External Medical Summary | Summary of Care ---
Author Name Unknown Organization [facility] [address] [address] Phone [phone] Care Team Providers Care Service Cashier Name Role Phone Sherice Silva MD Primary Care Prov ider Reason for Visit * Auth/Cert Specialty Diagnoses / Procedures Referred By Abdirashid colón Referred To Contact Diagnoses Gastric adenocarcinoma (HCC) Gastric adenocarcinoma (HCC) [C16.9] Procedures EGD, W/ENDOSCOPIC US ESOPHAGOGASTRODUODENOSCOPY (EGD), FLEXIBLE, TRANSORAL, ENDOSCOPIC ULTRASOUND Referral ID Status Reason Start Date Expiration Date Visits Re quested Visits Authorized [id number] Encounter Details Date Type Department Care Team Description 02/03/2023 Hospital Encounter ENDO [facility], Endoscopy Room [facility] [address] [id number] Neto Junior MD [address] [facility] [place] [address] Upper Endoscopic US Allergies Active Allergy Reactions Severity Noted Date Comments Duloxetine Hcl Edema Other 04/27/2022 Apixaban Itching,Rash 01/28/2023 Semaglutide(0.25 Or 0.5mg-Dos) Medium 04/21 Stomach pain/cramps documented as of this encounter (statuses as of 02/03/2023) Medications Medication Sig Dispensed Refills Start Date [...] 81 mg by mouth daily. 0 Active Cholecalciferol 25 MCG (1000 UT) Oral Capsule Take 1 Capsule by mouth in the morning and 1 Capsule before bedtime. 0 Active Metoprolol Succinate ER 50 MG [...] 3 lbs in one day. 0 Active Pantoprazole Sodium 40 MG Oral Tablet Delayed Release (Protonix) TAKE 1 TABLET BY MOUTH TWICE DAILY (MORNING AND BEDTIME) 60 Tablet 3 08/13/2022 Active Additional Information Patient not taking.Reported on 01/28/2023 Cyanocobalamin 1000 MCG Oral Tablet Take 1 Tablet by mouth in the morning. 0 Active Empagliflozin 10 MG Oral Tablet (Jardiance) Take 1 Tablet by mouth every evening. 0 Active Tamsulosin HCl 0.4 MG Oral Capsule (Flomax) Take 1 Capsule by mouth in the morning. 90 Capsule 3 12/04/2022 Active Eliquis 5 MG Oral Tablet (Apixaban) TAKE 1 TABLET BY MOUTH TWICE DAILY (MORNING AND BEDTIME) 180 Tablet 1 12/30/2022 Active Additional Information Patient not taking.Reported on 01/28/2023 Omeprazole 20 MG Oral Tablet Delayed Release Disintegrating Take by mouth at bedtime. 0 Active Insulin Glargine 100 UNIT/ML Subcutaneous Solution Pen-injector (Lantus) Inject 40 Units under the skin in the morning. 0 Active documented as of this encounter (statuses as of 02/03/2023) Active Problems Problem Noted Date Hypertensive heart disease with congesti ve heart failure 12/04/2022 AAA (abdominal aortic aneurysm) 07/10/19 Overview: 3.0 cm AAA noted on CT [...] as of this encounter (statuses as of 02/03/2023) Resolved Problems Problem Noted Date Resolved Date Viral pneumonia 04/27/2022 04/30/2022 documented as of this encounter (statuses as of 02/03/2023) Immunizations Name Administration Dates Next Due COVID-19 mRNA, LNP-s, No Pre serve, 2-Dose Series (CloudTags) 08/01/2020,07/11/2020 Pneumococcal Conjugate Vacci ne, 20-valent ([id number]) 05/09/2022 Season Influenza, Quad, PF, Adjuvanted, 65+ [...] Sign Reading Time Taken Comments Blood Pressure 121/63 02/03/2023 8:31 AM EDT Pulse 65 02/03/2023 8:31 AM EDT Temperature 36.2 C (97.2 F) 02/03/2023 8:11 AM ED T Respiratory Rate 16 02/03/2023 8:31 AM EDT Oxygen Saturation 97% 02/03/2023 8:31 AM EDT Inhaled Oxygen Concentration - - Weight 98 kg (216 lb) 02/03/2023 6:37 AM EDT Height 167.6 cm (5' 5.98") 02/03/2023 6:37 AM ED T Body Mass Index 34.88 02/03/2023 6:37 AM EDT documented in this encounter Functional Status Functional [...] No 04/27/2022 documented as of this encounter H&P Notes * Neto Junior MD - 02/03/2023 7:41 AM EDT Endoscopy Pre-Procedure Assessment Name: Bjorn Zapata Date: 02/03/2023 Time: 7:41 AM Procedure(s): Endoscopic Ultrasound; with Indication(s) of FNA/FNB of lesions/tissue within or outside the GI tract and evaluation of abnormalities seen during routine endoscopy Endoscopy Pre-Procedure Assessment: Prior to the procedure, the patient was identified. The patient's history, medications and allergies were reviewed as per the Anesthesia Assessment. The patient is competent. The risks and benefits of the proposed procedure and the planned sedation were discussed with the patient. All questions were answered and informed consent for the procedure was obtained. BP 141/61 | Pulse 66 | Temp 36.6 C (97.9 F) (Tympanic) | Resp 19 | Ht 1.676 m (5' 5.98") | Wt 98 kg (216 lb) | SpO2 96% | BMI 34.88 kg/m | BSA 2.14 m Review of patient's allergies indicates: Allergen Reactions Ozempic (0.25 Or 0.5 Mg-Dose) [Semaglutide(0.25 Or 0.5mg-Dos)] Stomach pain/cramps Duloxetine Hcl Edema Other Eliquis [Apixaban] Itching and Rash Prior to Admission medications Medication Sig Last Dose Discont. Insulin Glargine 100 UNIT/ML Subcutaneous Solution Pen-injector (Lantus) Inject 40 Units under the skin in the morning. 02/02/2023 Omeprazole 20 MG Oral Tablet Delayed Release Disintegrating Take by mouth at bedtime. Past Week Cyanocobalamin 1000 MCG Oral Tablet Take 1 Tablet by mouth in the morning. Past Week Empagliflozin 10 MG Oral Tablet (Jardiance) Take 1 Tablet by mouth every evening. 02/02/2023 Tamsulosin HCl 0.4 MG Oral Capsule (Flomax) Take 1 Capsule by mouth in the morning. 02/02/2023 Furosemide 40 MG Oral Tablet (Lasix) Take 1 Tablet by mouth as needed. Weight gain of 3 lbs in one day. Past Week PARoxetine HCl 20 MG Oral Tablet (pAXil) Take 1 Tablet by mouth at bedtime. Past Week Metoprolol Succinate ER 50 MG Oral Tablet Extended Release 24 Hour (toPROL XL) Take 1 Tablet by mouth in the morning. Do not start before May 01, 2022. Past Week Aspirin 81 MG Oral Capsule Take 81 mg by mouth daily. Past Week Cholecalciferol 25 MCG (1000 UT) Oral Capsule Take 1 Capsule by mouth in the morning and 1 Capsule before bedtime. Past Week metFORMIN HCl 500 MG Oral Tablet (Glucophage) Take 2 Tablets by mouth 2 times a day with morning and evening meals. 02/02/2023 Simvastatin 80 MG Oral Tablet (Zocor) Take 0.5 Tablets by mouth at bedtime. Past Week Eliquis 5 MG Oral Tablet (Apixaban) TAKE 1 TABLET BY MOUTH TWICE DAILY (MORNING AND BEDTIME) Patient not taking: Reported on 01/28/2023 Not Taking Pantoprazole Sodium 40 MG Oral Tablet Delayed Release (Protonix) TAKE 1 TABLET BY MOUTH TWICE DAILY(MORNING AND BEDTIME) Patient not taking: Reported on 01/28/2023 Not Taking Insulin Detemir 100 UNIT/ML Subcutaneous Solution (Levemir) Inject 20 Units under the skin daily. Patient not taking: Reported on 01/28/2023 Not Taking Physical Exam: Mental Status Examination: alert and oriented. Airway Examination: normal oropharyngeal airway and neck mobility. Respiratory Examination: clear to auscultation. CV Examination: Regular rate and rythm, no murmurs. ASA Grade: II - A patient with mild systemic disease. After reviewing the risks and benefits, the patient was deemed in satisfactory condition to undergothe procedure. The anesthesia plan was to use sedation. Patient was explained in detail regarding risks, benefits, limitations and alternatives of the above endoscopic procedure. Risks of intravenous sedation used for procedure were also explained. Risks include, but not limited to perforation, bleeding, infection, respiratory distress, cardiac arrest and . Risk of acute pancreatitis and necrosis if ERCP is done. Patient is also aware about the possibility of missed lesion. Patient's questions were answered. The patient verbalized understandingthe information and agreed to undergo the procedure. Discussed with the patient that he/she is at an explicit higher risk for complications in comparison to other patients Neto Junior MD 02/03/2023 documented in this encounter Procedure Notes * Sherice Massey MD - 02/03/2023 7:43 AM EDTAssociated Order(s): UPPER ENDOSCOPIC U/S [facility] Patient Name: Bjorn Zapata Procedure Date: 02/03/2023 7:43 AM Date of : 1945 Admit Type: Outpatient Note Status: Finalized Date of : 1945 Admit Type: Outpatient Age: 77 Room: Advanced Endo Gender: Male Note Status: Finalized Procedure: Upper EUS Indications: Staging of gastric adenocarcinoma Providers: Neto Junior MD (Doctor), Reid Mena RN Referring MD: Sherice Weathers MD (Referring MD), Ryley Mc DO (Referring MD) Medicines: Propofol per Anesthesia Complications: No immediate complications. Procedure: Pre-Anesthesia Assessment: - Prior to the procedure, a History and Physical was performed, and patient medications, allergies and sensitivities were reviewed. The patient's tolerance of previous anesthesia was reviewed. - The risks and benefits of the procedure and the sedation options and risks were discussed with the patient. All questions were answered and informed consent was obtained. - Patient identification and proposed procedure were verified prior to the procedure by the physician and the nurse. The procedure was verified in the procedure room. - Pre-procedure physical examination revealed no contraindications to sedation. After obtaining informed consent, the endoscope was passed under direct vision. All instruments were visually inspected immediately before and after removal from the patient to ensure they are fully intact. Throughout the procedure, the patient's blood pressure, pulse, and oxygen saturations were monitored continuously. The GF-UE160 Endoscope ([id number]) was introduced through the mouth, and advanced to the second part of duodenum. The upper EUS was accomplished without difficulty. The patient tolerated the procedure well. The GIF-[id number] Endoscope ([id number]) was introduced through the mouth, and advanced to the second part of duodenum. Findings & Specimens: ENDOSCOPIC FINDING: : The Z-line was regular and was found 44 cm from the incisors. A small hiatal hernia was present. A large, polypoid and ulcerated mass with oozing bleeding was found in the gastric body and on the greater curvature of the stomach. The duodenal bulb and second portion of the duodenum were normal. ENDOSONOGRAPHIC FINDING: : There was no sign of significant endosonographic abnormality in the common bile duct. The maximum diameter of the duct was 4 mm. No stones were identified. There was no sign of significant endosonographic abnormality in the entire pancreas. The pancreatic duct measured up to 2 mm in diameter. There was no sign of significant endosonographic abnormality in the visualized portion of the liver. Homogeneous parenchyma and no masses were identified. A hypoechoic round mass was identified endosonographically in the greater curve of the stomach. The mass measured 40 mm in maximal cross-sectional diameter. The endosonographic borders were well-defined. There was sonographic evidence suggesting invasion into the muscularis propria (Layer 4). An intact interface was seen between the mass and the adjacent structures suggesting a lack of invasion. There was no sign of significant endosonographic abnormality involving the celiac trunk. One abnormal lymph node was visualized in the perigastric region. It measured 6 mm in maximal cross-sectional diameter. The node was round, hypoechoic and had well defined margins. Impression: - Malignant gastric tumor in the gastric body on the greater curvature of the stomach consistent with known adenocarcinoma. This was staged T2 N1 Mx by endosonographic criteria. - The celiac trunk was endosonographically normal. - No specimens collected. Recommendation: - Discharge patient to home. - Refer to a surgeon. - Refer to an oncologist. - Return to referring physician. Neto Junior MD 02/03/2023 8:14:59 AM This report has been signed electronically. documented in this encounter Nursing Notes * Mahogany Hong RN - 02/03/2023 8:57 AM EDT Patient is alert, pain free, passing flatus and tolerating po fluids prior to discharge. Patient has been visited by Dr. Junior. Patient has received and demonstrates understanding of discharge instructions. Patient is transported via w/c to private auto accompanied by endo staff. Patient agreeable with making surgical referral for patient and he is aware he will be contacted * Mahogany Hong RN - 02/03/2023 8:50 AM EDT VSS. Monitor d/c'd. Dressing indep at bedside. Call atkinson in reach. * Mahogany Hong RN - 02/03/2023 8:43 AM EDT Procedure findings and d/c instructions reviewed w/ pt. Copies given. Verbalized understanding. * Zena Garcia RN - 02/03/2023 8:23 AM EDT Patent awake, HOB elevated. * Zena Garcia RN - 02/03/2023 8:11 AM EDT Patient transferred to pacu 2 status post EUS. Patient quietly resting. Respirations are even and unlabored on room air. Abdomen soft and non distended. Blood pressure soft 89/51. BP treated by LAY UP OPERATOR.Report was received from CATRACHITO. RN at bedside. Call atkinson is available to the patient. * Reid Mena RN - 02/03/2023 8:07 AM EDT See anesthesia record for medication administered during procedure. Reid Mena RN Pre cleaning of scope at the bedside started by planetarium sky show technician. * Ammy Kyle RN - 02/03/2023 6:53 AM EDT The following pt discharge instructions reviewed with pt prior to prodedure: No driving today. No alcohol today. No signing of legal documents. Rest as much as possible today and can return to normal activities tomorrow. No operating any heavy equipment today. Diet as tolerated. Pt verbalized understanding. documented in this encounter Plan of Treatment Upcoming Encounters Date Type Specialty Care Team Description 06/17/2023 Office Visit Family Medicine Sherice Silva MD [address] [place] [address] Scheduled Orders Name Type Priority Associated Diagnoses Orde r Schedule GLUCOSE METER, POINT OF CARE (COMMUNICATION ORDER) Point of Care Testing Routine As Needed until discontinued starting 02/03/2023 Scheduled Procedures Name Priority Associated Diagnoses Date/Ti me ESOPHAGOGASTRODUODENOSCOPY ( EGD), FLEXIBLE, TRANSORAL, ENDOSCOPIC ULTRASOUND Gastric adenocarcinoma (HCC) 02/03/2023 7:46 AM EDT Health Maintenance Due Date Last Done Comments DIABETES-EYE EXAM 1963 Hepatitis C Screening 1963 DTaP,Tdap,and Td Vaccines (1 - Tdap) 1965 Zoster Vaccines (1 of 2) 1996 HbA1c 10/26/2022 04/28/2022, 07/0 08/2021, 01/11/2002, Additional history exists COVID-19 Vaccine ( season) 2022 08/01/2020, 07/11/2020 Influenza Vaccine (FLU [...] Procedure Name Priority Date/Time Associated Diagnosis Comments GLUCOSE METER, POINT OF CARE AYANA 02/03/2023 8:22 AM EDT UPPER ENDOSCOPIC U/S 02/03/2023 7:43 AM EDT GLUCOSE METER, POINT OF CARE AYANA 02/03/2023 7:08 AM EDT documented in this encounter Results * (ABNORMAL) GLUCOSE METER, POINT OF CARE (02/03/2023 8:22 AM EDT) Glucose Meter 150(H) 70 - 120 mg/dL 02/03/2023 8:25 AM EDT [facility] [place] [facility] 57-00 Blood Whole blood specimen / Unknown 02/03/2023 8:22 AM EDT 02/03/2023 8:25 AM EDT Neto Junior MD LAB POINT OF CARE T EST DOCKED DEVICE UNSOLICITED RESULTS Performing Organization Address City/State/[facility] Co de Phone Number [facility] [address] [place] [phone] * UPPER ENDOSCOPIC U/S (02/03/2023 7:43 AM EDT) 02/03/2023 7:43 AM EDT Procedure Note Sherice Massey MD - 02/03/2023 7:43 AM EDT [facility] Patient Name: Bjorn Zapata Procedure Date: 02/03/2023 7:43 AM Date of : 1945 Admit Type: Outpatient Note Status:Finalized Date of : 1945 Admit Type: Outpatient Age: 77 Room: Advanced Endo Gender: Male Note Status: Finalized Procedure: Upper EUS Indications: Staging of gastric adenocarcinoma Providers: Neto Junior MD (Doctor), Reid Mena RN Referring MD: Sherice Weathers MD (Referring MD), Ryley Clay DO (Referring MD) Medicines: Propofol per Anesthesia Complications: No immediate complications. Procedure: Pre-Anesthesia Assessment: - Prior to the procedure, a History and Physicalwas performed, and patient medications, allergies and sensitivities werereviewed. The patient's tolerance of previous anesthesia was reviewed. - The risks and benefits of the procedure and thesedation options and risks were discussed with the patient. All questions wereanswered and informed consent was obtained. - Patient identification and proposed procedurewere verified prior to the procedure by the physician and the nurse. The procedure wasverified in the procedure room. - Pre-procedure physical examination revealed nocontraindications to sedation. After obtaining informed consent, the endoscope waspassed under direct vision. All instruments were visually inspected immediatelybefore and after removal from the patient to ensure they are fully intact. Throughout the procedure, the patient's bloodpressure, pulse, and oxygen saturations were monitored continuously. The GF-UE160 Endoscope([id number]) was introduced through the mouth, and advanced to the second part ofduodenum. The upper EUS was accomplished without difficulty. The patienttolerated the procedure well. The GIF-HQ190 Endoscope ([id number]) was introducedthrough the mouth, and advanced to the second part of duodenum. Findings & Specimens: ENDOSCOPIC FINDING: : The Z-line was regular and was found 44 cm from the incisors. A small hiatal hernia was present. A large, polypoid and ulcerated mass with oozing bleeding was foundin the gastric body and on the greater curvature of the stomach. The duodenal bulb and second portion of the duodenum were normal. ENDOSONOGRAPHIC FINDING: : There was no sign of significant endosonographic abnormality in thecommon bile duct. The maximum diameter of the duct was 4 mm. No stones were identified. There was no sign of significant endosonographic abnormality in theentire pancreas. The pancreatic duct measured up to 2 mm in diameter. There was no sign of significant endosonographic abnormality in thevisualized portion of the liver. Homogeneous parenchyma and no masses were identified. A hypoechoic round mass was identified endosonographically in thegreater curve of the stomach. The mass measured 40 mm in maximal cross-sectional diameter. Theendosonographic borders were well-defined. There was sonographic evidence suggesting invasion into themuscularis propria (Layer 4). An intact interface was seen between the mass and the adjacent structuressuggesting a lack of invasion. There was no sign of significant endosonographic abnormalityinvolving the celiac trunk. One abnormal lymph node was visualized in the perigastric region. Itmeasured 6 mm in maximal cross-sectional diameter. The node was round, hypoechoic and had welldefined margins. Impression: - Malignant gastric tumor in the gastric body onthe greater curvature of the stomach consistent with known adenocarcinoma. This wasstaged T2 N1 Mx by endosonographic criteria. - The celiac trunk was endosonographicallynormal. - No specimens collected. Recommendation: - Discharge patient to home. - Refer to a surgeon. - Refer to an oncologist. - Return to referring physician. Neto Junior MD 02/03/2023 8:14:59 AM This report has been signed electronically. Sherice Massey MD GASTRO UPP ER * (ABNORMAL) GLUCOSE METER, POINT OF CARE (02/03/2023 7:08 AM EDT) Glucose Meter 151(H) 70 - 120 mg/dL 02/03/2023 7:15 AM EDT [facility] Blood Whole blood specimen / Unknown 02/03/2023 7:08 AM EDT 02/03/2023 7:15 AM EDT Neto Junior MD LAB POINT OF CARE T EST DOCKED DEVICE UNSOLICITED RESULTS [facility] [place] [address] documented in this encounter Administered Medications Inactive Administered Medications - up to 3 most recent administrations Medication Order MAR Action Action Date Dose Rate Site isolyte-S pH 7.4 infusion Intravenous, at 100 mL/hr, Plasma-LYTE 148, isolyte-S, and isolyte-S pH 7.4 are considered equivalent - including for MAR barcode scanning., CONTINUOUS, Starting on Thu02/03/23 at 0715, Until Thu02/03/23 at 1308, Pre-Op Continue from Pre-Op 02/03/2023 7:46 AM EDT 100 mL/hr New Bag 02/03/2023 7:14 AM EDT 100 mL/hr documented in this encounter Active and Recently Administered Medications Times are shown in EDT. Continuous Medication Order 02/01/2023 02/02/2023 02/03/2023 isolyte-S pH 7.4 infusion Intravenous, at 100 mL/hr, Plasma-LYTE 148, isolyte-S, and isolyte-S pH 7.4 are considered equivalent - including for MAR barcode scanning., CONTINUOUS, Starting on Thu02/03/23 at 0715, Until Thu02/03/23 at 1308, Pre-Op 0714 (New Bag - Prov ider: Ammy Kyle RN)0746 (Continue from Pre-Op - Provider: Dudley Lynn CRNA)0808 (Anes Intra-Op Fluid - Provider: Dudley Lynn CRNA) documented in this encounter Additional Health Concerns [...] Advance Directives occurred with: Patient Care Teams Service Cashier Relationship Specialty Start Date End Date Sherice Silva MD [address] [place] [phone] PCP - General Family Medicine 11/27/22 documented as of this encounter
--- OUTSIDE RECORDS SUMMARY | 2023-03-10 23:05 | External Medical Summary | Summary of Care ---
Author Name Unknown Organization [facility] Address [address] [place] [address] Phone [phone] Care Team Providers Care Crystal Evaluator Name Role Phone Sherice Silva MD Primary Care Prov ider Reason for Referral * Precert (Within 10 days (routine)) - Pending Review Specialty Diagnoses / Procedures Referred By Abdirashid t Referred To Contact Radiology Diagnoses Gastric adenocarcinoma (HCC) Procedures PET CT SKULL BASE TO MID-THIGH PET SKULL BASE TO MID-THIGH Carlos Schilling MD [address] [place] [address] Referral ID Status Reason Start Date Expiration Date V isits Requested Visits Authorized [id number] Pending Review 02/11/2023 999 999 * Evaluate & Treat - Unlimited Visits (Within 10 days (routine)) - Pending Review Specialty Diagnoses / Procedures Referred By Abdirashid t Referred To Contact Hematology/Oncology / Hematology Oncology Diagnoses Gastric adenocarcinoma (HCC) Carlos Schilling MD [address] [place] [address] Referral ID Status Reason Start Date Expiration Date Visits Requested Visits Authorized [id number] Pending Review Specialty Services Required 3 999 999 Question Answer Referral Priority Within 10 days (routine) Where should this appointment be scheduled? [facility] Reason for Referral Malignant Oncology (Solid Organ Cancer) Comments New gastric adenocarcinoma Reason for Visit * Reason Onset Date Comments Referral 02/03/2023 Encounter Details Date Type Department Care Team Description 02/03/2023 Telephone General Surgery, [facility] [address] [place] [address] Carlos Schilling MD [address] [place] [address] Referral Allergies Active Allergy Reactions Severity Noted Date Comments Duloxetine Hcl Edema Other 04/27/2022 Apixaban Itching,Rash 01/28/2023 Semaglutide(0.25 Or 0.5mg-Dos) Medium 04/21 Stomach pain/cramps documented as of this encounter (statuses as of 02/13/2023) Medications Medication Sig Dispensed Refills Start Date [...] as of this encounter (statuses as of 02/13/2023) Active Problems Problem Noted Date Malignant neoplasm [...] as of this encounter (statuses as of 02/13/2023) Resolved Problems Problem Noted Date Resolved Date Viral pneumonia 04/27/2022 04/30/2022 documented as of this encounter (statuses as of 02/13/2023) Immunizations Name Administration Dates Next Due COVID-19 mRNA, LNP-s, No Pre serve, 2-Dose Series (Filement) 08/01/2020,07/11/2020 Pneumococcal Conjugate Vacci ne, 20-valent ([id number]) 05/09/2022 Season Influenza, Quad, PF, Adjuvanted, 65+ Yrs, IM (FLUAD) 03/27/2020 Seasonal Influenza Virus Vac cine, Unspecified Formulation 03/01/2018,02/27/2015,04/04/2014,04/02 Seasonal Influenza, Quadriva lent Hd (Fluzone Hd) 03/18/2022 Seasonal Influenza, Split, I IV3, With Preserve, Inj 02/27/2015,04/02/2001 02/26/2002 documented as of this encounter Social History [...] (15 years old or older) No 04/27/19 23 Cognitive Status Response Date of Assessm ent [...] with Dr Schilling. * Telephone Encounter - Marilyn Ceja RN - 02/03/2023 9:39 AM EDT [...] iron. He is following labs through the [facility]. He was recentlyfound to be FIT negative. [...] will continue to follow labs with the [facility]. we discussed if ongoing anemia and EGD unremarkable that capsule should be reconsidered. - would also consider hematological evaluation of anemia. - recommended continuation of omeprazole 40mg daily. - f/u post procedure. 01/23/23 EGD Impression: - Normal esophagus. - Likely malignant gastric tumor in the gastric body. Biopsied. - Normal examined duodenum. Pathology 01/30/23 CT Chest/CT Abd Pelvis ([facility]) IMPRESSION: No evidence of metastatic disease above [...] General Surgery Carlos Schilling MD [address] [place] [address] 03/10/2023 Office Visit Hematology Oncology Virgen Aquino MD [address] [place] [address] 06/17/2023 Office Visit Family Medicine Sherice Silva MD [address] [place], [place] [phone] Scheduled Orders Name Type Priority Associated Diagnoses [...] Foot Exam 05/09/2023 05/09/2022 GFR 07/03/2023 07/02/2022, 03/0 10/2022, 06/30/2022, Additional history exists Depression Screening [...] Advance Directives occurred with: Patient Care Teams Crystal Evaluator Relationship Specialty Start Date End Date Sherice Silva MD [address] [place] [address] PCP - General Family Medicine 11/27/22 documented as of this encounter
--- OUTSIDE RECORDS SUMMARY | 2023-03-10 23:05 | External Medical Summary | Summary of Care ---
Author Name Unknown Organization [facility] Address [address] [place] [address] Phone [phone] Care Team Providers Care Drawing Instructor Name Role Phone Sherice Silva MD Primary Care Prov ider Reason for Visit * Reason Comments Outpatient Testing Encounter Details Date Type Department Care Team (Late st Contact Info) Description 02/26/2023 9:50 AM EDT Laboratory Laboratory, [address] [phone] [facility], Lab [address] [place] [id number] Other specified disorders of bladder Allergies Active Allergy Reactions Criticality Noted Date Comments Duloxetine Hcl Edema Other 04/27/2022 Apixaban Itching,Rash 01/28/2023 Semaglutide(0.25 Or 0.5mg-Dos) Medium 04/21/2022 Stomach pain/cramps documented as of this encounter (statuses as of 02/26/2023) Medications Medication Sig Dispensed Refills Start Date [...] as of this encounter (statuses as of 02/26/2023) Active Problems Problem Noted Date Diagnosed Date [...] as of this encounter (statuses as of 02/26/2023) Resolved Problems Problem Noted Date Diagnosed Date Resolved Date Viral pneumonia 04/27/2022 04/30/2022 documented as of this encounter (statuses as of 02/26/2023) Immunizations Name Administration Dates Next Due COVID-19 mRNA, LNP-s, No Pre serve, 2-Dose Series (Pfizer) 08/01/2020,07/11/2020 Pneumococcal Conjugate Vacci ne, 20-valent ([id number]) 05/09/2022 Season Influenza, Quad, PF, Adjuvanted, 65+ [...] 9:20 AM EST Office Visit General Surgery, [place] [address] [place] [address] Carlos Schilling MD [address] [place] [address] 03/10/2023 2:15 PM EST Office Visit Hematology/Oncology [facility] [address] [place] [place] [address] Virgen Aquino MD [address] [place] [place] [address] 06/17/2023 10:00 AM EST Office Visit [address] [phone] Sherice Silva MD [address] [place] [phone] Health Maintenance Due Date Last Done Comments Diabetic Eye Exam 1963 Hepatitis C Screening 1963 DTaP,Tdap,and Td Vaccines (1 - Tdap) 1965 Zoster Vaccines (1 of 2) 1996 Hepatitis B (1 of 3 - Risk 3-dose series) 2006 HbA1c 10/26/2022 04/28/2022, 07/08/2021, 01/11/2002, Additional history exists COVID-19 Vaccine (3 [...] as of this encounter Visit Diagnoses Diagnosis Other specified disorders of bladder documented in this encounter Advance Directives Latest [...] Advance Directives occurred with: Patient Care Teams Drawing Instructor Relationship Specialty Start Date End Date Sherice Silva MD [address] [place] [address] PCP - General Family Medicine 11/27/22 documented as of this encounter
--- OUTSIDE RECORDS SUMMARY | 2023-03-10 23:05 | External Medical Summary ---
Author Name Unknown Address Unknown Organization K1G:[facility] - [address] [place] [id number] Laboratory Report Ordering Provider Test Date Status [id number] 02/26/2023 10:04:27 Final Observation Date Value Abnormality Reference (Units ) Status BUN 02/26/2023 10:04:27 20 6-20 (mg/dL) Final Creatinine 02/26/2023 10:04:27 1.3 Above high normal 0.6-1.2 (mg/dL) Final Glomerular filtration rate/1.73 sq M.predicted [Volume Rate/Area] in Serum, Plasma or Blood by Creatinine-based formula (CKD-EPI) 02/26/2023 10:04:27 59 Below low normal >=60 (mL/min) Final eGFR is calculated based on the CKD-EPI 2020 equation SODIUM 02/26/2023 10:04:27 141 135-146 (m mol/L) Final Potassium 02/26/2023 10:04:27 4.3 3.5-5.1 (m mol/L) Final Cl 02/26/2023 10:04:27 103 98-107 (mm ol/L) Final CO2 02/26/2023 10:04:27 24 22-32 (mmo l/L) Final Anion gap 02/26/2023 10:04:27 14 7-15 (mmol /L) Final Glucose 02/26/2023 10:04:27 223 Above high normal 70 -120 (mg/dL) Final Calcium 02/26/2023 10:04:27 9.3 8.4-10.2 ( mg/dL) Final Performing Location [facility] - [address] [facility] [phone]
--- OUTSIDE RECORDS SUMMARY | 2023-03-10 23:05 | External Medical Summary | Summary of Care ---
Author Name Unknown Organization [facility] Address [address] [place] [address] Phone [phone] Care Team Providers Care Product Assurance Engineer Name Role Phone Sherice Silva MD Primary Care Prov ider Encounter Details Date Type Department Care Team Description 01/30/2023 Orders Only [facility], [address] [address] Sherice Silva MD [address] [place] [address] Allergies Active Allergy Reactions Severity Noted Date Comments Duloxetine Hcl Edema Other 04/27/2022 Apixaban Itching,Rash 01/28/2023 Semaglutide(0.25 Or 0.5mg-Dos) Medium 04/21 Stomach pain/cramps documented as of this encounter (statuses as of 02/04/2023) Medications Medication Sig Dispensed Refills Start Date [...] as of this encounter (statuses as of 02/04/2023) Active Problems Problem Noted Date Hypertensive heart [...] as of this encounter (statuses as of 02/04/2023) Resolved Problems Problem Noted Date Resolved Date Viral pneumonia 04/27/2022 04/30/2022 documented as of this encounter (statuses as of 02/04/2023) Immunizations Name Administration Dates Next Due COVID-19 mRNA, LNP-s, No Pre serve, 2-Dose Series (Pfizer) 08/01/2020,07/11/2020 Pneumococcal Conjugate Vacci ne, 20-valent ([id number]) 05/09/2022 Season Influenza, Quad, PF, Adjuvanted, 65+ [...] Team Description 06/17/2023 Office Visit Family Medicine Jasiel Massey, Sherice Lim MD [address] [place] [address] Health Maintenance Due Date Last Done Comments [...] Procedure Name Priority Date/Time Associated Diagnosis Comments RADIOLOGY EXAM - CT (IMAGES ONLY, NO REPORT) Routine 01/30/2023 10:35 AM EDT documented in this encounter Results * RADIOLOGY EXAM - CT (IMAGES ONLY, NO REPORT) (01/30/2023 10:35 AM EDT) 01/30/2023 10:2 8 AM EDT Narrative Scheduling, Silent - 02/04/2023 8:37 AM EDT This is an imaging study not interpreted or resulted by a [facility] or [employer] contracted radiologist. Sherice Massey MD RAD CT documented in this encounter Additional Health Concerns [...] Advance Directives occurred with: Patient Care Teams Product Assurance Engineer Relationship Specialty Start Date End Date Sherice Silva MD [address] [place] [address] PCP - General Family Medicine 11/27/22 documented as of this encounter
--- OUTSIDE RECORDS SUMMARY | 2023-03-10 23:05 | External Medical Summary | Summary of Care ---
Author Name Unknown Organization [facility] Address [address] [place] [address] Phone [phone] Care Team Providers Care Financial Analysis Consultant Name Role Phone Sherice Silva MD Primary Care Prov ider Encounter Details Date Type Department Care Team Description 01/30/2023 Hospital Encounter Radiology Film File [address] [place] [address] Allergies Active Allergy Reactions Severity Noted Date Comments Duloxetine Hcl Edema Other 04/27/2022 Apixaban Itching,Rash 01/28/2023 Semaglutide(0.25 Or 0.5mg-Dos) Medium 04/21 Stomach pain/cramps documented as of this encounter (statuses as of 02/05/2023) Medications Medication Sig Dispensed Refills Start Date [...] as of this encounter (statuses as of 02/05/2023) Active Problems Problem Noted Date Hypertensive heart [...] as of this encounter (statuses as of 02/05/2023) Resolved Problems Problem Noted Date Resolved Date Viral pneumonia 04/27/2022 04/30/2022 documented as of this encounter (statuses as of 02/05/2023) Immunizations Name Administration Dates Next Due COVID-19 mRNA, LNP-s, No Pre serve, 2-Dose Series (Pfizer) 08/01/2020,07/11/2020 Pneumococcal Conjugate Vacci ne, 20-valent ([id number]) 05/09/2022 Season Influenza, Quad, PF, Adjuvanted, 65+ [...] Encounters Date Type Specialty Care Team Description 02/09/2023 Office Visit Hematology Oncology Virgen Aquino MD [address] [place] [address] 02/19/2023 Appointment Radiology 06/17/2023 Office Visit Family Medicine Sherice Silva MD [address] [place] [address] Health Maintenance Due Date Last Done Comments DIABETES-EYE EXAM 1963 Hepatitis C Screening 1963 DTaP,Tdap,and Td Vaccines (1 - Tdap) 1965 Zoster Vaccines (1 of 2) 1996 HbA1c 10/26/2022 04/28/2022, 070 08/2021, 01/11/2002, Additional history exists COVID-19 Vaccine (2022- season) 2022 08/01/2020, 07/11/2020 Influenza Vaccine (FLU [...] interpreted or resulted by a [facility] or [employer] contracted radiologist. Sherice Massey MD RAD CT [...] Advance Directives occurred with: Patient Care Teams Financial Analysis Consultant Relationship Specialty Start Date End Date Sherice Silva MD [address] [place] [phone] PCP - General Family Medicine 11/27/22 documented as of this encounter
--- OUTSIDE RECORDS SUMMARY | 2023-03-10 23:05 | External Medical Summary | Summary of Care ---
Author Name Unknown Organization [facility] Address [address] [place] [address] Phone [phone] Care Team Providers Care Shoveler Name Role Phone Sherice Silva MD Primary Care Prov ider Encounter Details Date Type Department Care Team Description 01/30/2023 Orders Only [facility], [address] [address] Sherice Silva MD [address] [place] [phone] Allergies Active Allergy Reactions Severity Noted Date [...] (Pfizer) 08/01/2020,07/11/2020 Pneumococcal Conjugate Vacci ne, 20-valent ([id number]) 05/09/2022 Season Influenza, Quad, PF, Adjuvanted, 65+ [...] Family Medicine Jasiel Massey, Sherice Lim MD [address] [place] [address] Health Maintenance Due Date Last Done Comments [...] CT (IMAGES ONLY, NO REPORT) Routine 01/30/2023 10:30 AM EDT documented in this encounter Results * RADIOLOGY EXAM - CT (IMAGES ONLY, NO REPORT) (01/30/2023 10:30 AM EDT) 01/30/2023 10:2 8 AM EDT Narrative Scheduling, Silent - 02/04/2023 8:35 AM EDT This is an imaging study not interpreted or resulted by a [facility] or [employer] contracted radiologist. Sherice Massey MD RAD CT [...] Advance Directives occurred with: Patient Care Teams Shoveler Relationship Specialty Start Date End Date Sherice Silva MD [address] [place] [address] PCP - General Family Medicine 11/27/22 documented as of this encounter
--- OUTSIDE RECORDS SUMMARY | 2023-03-10 23:05 | External Medical Summary | Summary of Care ---
Author Name Unknown Organization [facility] Address [address] [place] [address] Phone [phone] Care Team Providers Care Tax Agent Name Role Phone Sherice Silva MD Primary Care Prov ider Reason for Visit * Reason Comments Consultation Consultation - Gastr ic Adenocarcinoma * Evaluate & Treat - Unlimited Visits (Within 10 days (routine)) - Pending Review Specialty Diagnoses / Procedures Referred By bAdirashid colón Referred To Contact Hematology/Oncology / Hematology Oncology Diagnoses Gastric adenocarcinoma (HCC) Carlos Schilling MD [address] [place] [address] Referral ID Status Reason Start Date Expiration Date Visits Requested Visits Authorized [id number] Pending Review Specialty Services Required 3 [phone] Encounter Details Date Type Department Care Team Description 02/09/2023 Office Visit Hematology/Oncology State Mone Fernandez [address] [facility] [place] [address] Virgen Aquino MD 200 [facility] [place] [address] Malignant neoplasm of overlapping sites of stomach (HCC)* Allergies Active Allergy Reactions Severity Noted Date Comments Duloxetine Hcl Edema Other 04/27/2022 Apixaban Itching,Rash 01/28/2023 Semaglutide(0.25 Or 0.5mg-Dos) Medium 04/21 Stomach pain/cramps documented as of this encounter (statuses as of 02/09/2023) Medications Medication Sig Dispensed Refills Start Date [...] as of this encounter (statuses as of 02/09/2023) Active Problems Problem Noted Date Malignant neoplasm [...] as of this encounter (statuses as of 02/09/2023) Resolved Problems Problem Noted Date Resolved Date Viral pneumonia 04/27/2022 04/30/2022 documented as of this encounter (statuses as of 02/09/2023) Immunizations Name Administration Dates Next Due COVID-19 mRNA, LNP-s, No Pre serve, 2-Dose Series (TrueSpan) 08/01/2020,07/11/2020 Pneumococcal Conjugate Vacci ne, 20-valent ([id number]) 05/09/2022 Season Influenza, Quad, PF, Adjuvanted, 65+ Yrs, IM (FLUAD) 03/27/2020 Seasonal Influenza Virus Vac cine, Unspecified Formulation 03/01/2018,02/27/2015,04/04/2014,2000 Seasonal Influenza, Quadriva lent Hd (Fluzone Hd) 03/18/2022 Seasonal Influenza, Split, I IV3, With Preserve, Inj 02/27/2015 documented as of this encounter Social History Tobacco Use Types Packs/Day Years Used Date Smoking Tobacco: Former Cigarettes 1 30 Smokeless Tobacco: Never Tobacco Cessation:Counseling Given: Not Answered Alcohol Use Standard Drinks/Week Comments Never 0 [...] Sign Reading Time Taken Comments Blood Pressure 107/66 02/09/2023 2:54 PM EDT Pulse 76 02/09/2023 2:53 PM EDT Temperature 36.7 C (98.1 F) 02/09/2023 2:53 PM ED T Respiratory Rate 16 02/09/2023 2:53 PM EDT Oxygen Saturation 94% 02/09/2023 2:53 PM EDT Inhaled Oxygen Concentration - - Weight 103.7 kg (228 lb 9.6 oz) 02/09/2023 2:53 PM EDT Height 167 cm (5' 5.75") 02/09/2023 2:53 PM EDT Body Mass Index 37.18 02/09/2023 2:53 PM EDT documented in this encounter Functional Status [...] as of this encounter Progress Notes * Virgen Aquino MD - 02/09/2023 2:57 PM EDT Outpatient Consult Note Data Source: Patient, Epic record. 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 HPI: 77-year-old male with past medical history significant for multiple medical problems including coronary artery disease, BPH, hypertension, type 2 diabetes, morbid obesity and heart failure with preserved ejection fraction was referred with the about diagnosis. He presented with complaint of generalized weakness, episodes of abdominal pain and loss of about 35 lb in 1 year. On the blood test was found to have anemia. I do not have the results in the detail of the blood test. As a part of anemia workup he had endoscopy and endoscopic ultrasound done on 02/03/2023 which showed hypoechoic round mass in the greater curve of the stomach measured 14 mm in maximal cross-section diameter and there was evidence of invasion into muscularis propria and there was1 abnormal lymph node in the perigastric region measured 6 mm. Biopsy from the mass is consistent with moderate to poorly differentiated adenocarcinoma with negative HER2 Renato expression on FISH and PDL expression was 5. FINAL DIAGNOSIS Stomach, mass, biopsy: - Moderate to poorly differentiated adenocarcinoma. - HER2/renato overexpression by immunohistochemistry: Negative (score 1+). - Mismatch repair proficient (MMRp). HER2 FISH TESTING RESULTS: Results: Not Detected ClearMomentum PD-L1 LDT: Expression Present. Total PD-L1 Expression: 5 (See below) Reference range: Detected PD-L1 Expression >/= 1 Not Detected PD-L1 Expression < 1 [place] Mismatch Repair (MMR) Immunohistochemistry Panel Results: Mismatch repair proficient (MMRp). Immunohistochemistry: MLH1 Protein: Intact. PMS2 Protein: Intact. MSH2 Protein: Intact. MSH6 Protein: Intact. Interpretation: Intact expression of all four proteins (MLH1, MSH2, MSH6 and PMS2) is present. The immunohistochemistry findings are not consistent with microsatellite instability. CT scan of the abdomen pelvis was done on 01/30/2023 which shows large enhancing mass along the left wall of the bladder and there was asymmetry wall thickening along the greater curvature of the stomach likely corresponding to reported history of gastric neoplasm. Prominent gastrohepatic lymph nodes are nonspecific, small matt metastasis are not excluded. CT scan of chest was negative for metastasis. Patient denies smoking. He also denies drinking. Family history is negative for hematologic oncology problem Past Medical History: Diagnosis Date Abdominal pain Anemia HTN, goal below 140/90 05/28/2001 Impotence of organic origin 05/28/2001 Current Outpatient Medications Medication Sig Dispense Refill Insulin Detemir 100 UNIT/ML Subcutaneous Solution (Levemir) Inject 20 Units under the skin daily. (Patient not taking: Reported on 01/28/2023) metFORMIN HCl 500 MG Oral Tablet (Glucophage) [...] No current facility-administered medications for this visit. Social History Socioeconomic History Marital status: Spouse name: Gwen Number of children: 3 Years of education: Not on file Highest education level: Not on file Occupational History Occupation: [employer] Tobacco Use Smoking status: Former Packs/day: 1.00 Years: 30.00 Pack years: 30.00 Types: Cigarettes Smokeless tobacco: Never Vaping Use Vaping Use: Never used Substance and Sexual Activity Alcohol use: Never Drug use: Never Sexual activity: Yes Partners: Female Other Topics Concern Not on file Social History Narrative Not on file Social Determinants of Health Financial Resource Strain: Not on file Food Insecurity: No Food Insecurity Worried About Running Out of Food in the Last Year: Never true Ran Out of Food in the Last Year: Never true Transportation Needs: Not on file Physical Activity: Not on file Stress: Not on file Social Connections: Not on file Intimate Partner Violence: Not on file Housing Stability: Not on file Family History Problem Relation Age of Onset Diabetes Mother Diabetes Father Cancer Father skin Diabetes Sister Heart Disorder Brother CAD - late 50's REVIEW OF SYSTEMS: General: No Fever, chills, night sweats HEENT: No change in visual acuity, blurred or double vision. No epistaxis, facial pain, nasal discharge or change in hearing. Denies dysphagia, no muscosal ulceration, or sores noted. Cardiovascular: No chest pain, DALY, or palpitations Respiratory: No shortness of breath, cough, hemoptysis, or pleuritic chest pain Gastrointestinal: No abdominal pain, nausea, vomiting, diarrhea, rectal pain or bleeding Genitourinary: Denies Hematuria or dysuria Musculoskeletal: No bone pain Skin: No skin rash or lesions noted Neurologic: stable numbness, No weakness, neuropathic pain or change in cognitive function Psychiatric: No vegetative signs of depression Endocrine: No symptoms of hypothyroidism or hyperglycemia Hematologic: No bleeding or lymph nodes noted As mentioned above, all other systems were reviewed in full and are unremarkable. Review of patient's allergies indicates: Allergen Reactions Ozempic (0.25 Or 0.5 Mg-Dose) [Semaglutide(0.25 Or 0.5mg-Dos)] Stomach pain/cramps Duloxetine Hcl Edema Other Eliquis [Apixaban] Itching and Rash PHYSICAL EXAMINATION: General Appearance: Healthy appearing patient in no acute distress BP 107/66 (BP Site: Left Arm, BP Position: Standing, BP Cuff Size: Large) | Pulse 76 | Temp 36.7 C (98.1 F) (Tympanic) | Resp 16 | Ht 1.67 m (5' 5.75") | Wt 103.7 kg (228 lb 9.6 oz) | SpO2 94% | BMI 37.18 kg/m | BSA 2.19 m Vitals were reviewed. HEENT: No oral or pharyngeal masses, ulceration or thrush noted, no sinus tenderness. Neck is supple with no thyromegaly or JVD noted. Lymph Nodes: No lymphadenopathy noted in the occipital, pre and post auricular, cervical, supra andinfraclavicular, axillary, epitrochlear, inguinal, and popliteal region. Lungs/Thorax: Clear to auscultation, no accessory muscles of respiration being used. Heart: Regular rate and rhythm, normal S1, S2. Abdomen: Soft, nontender, bowel sounds present, no appreciable hepatosplenomegaly, no palpable masses Extremeties: Good pulses bilaterally, no peripheral edema. Skin: Normal skin tone with no rash, petechiae, ecchymosis noted. Musculoskeletal: No pain on palpation over bony prominence, no edema, no evidence of gout, no jointor bony deformity ASSESSMENT: 77-year-old male with past medical history significant for multiple medical problems including coronary artery disease, BPH, hypertension, type 2 diabetes, morbid obesity and heart failure with preserved ejection fraction was referred with recent diagnosis of stomach cancer. Patient presented with complaint of generalized weakness, abdominal pain and weight loss and anemia. Mass in the greater curvature with possible lymph node metastasis. Based on the endoscopic ultrasound finding patient has stage T2 N1 disease, HER2 Renato negative and PDL1 expression 5 with intact MSI. On the CT scan he was found to have a bladder mass and he is scheduled for cystoscopy and possible TURP on 03/09/2023. He is scheduled for the PET scan on 02/19/2023. He also has appointment with Dr. Schilling on 03/02/2023. Patient seems to have local disease. If there is no other metastasis then he can benefit with the neoadjuvant chemotherapy followed by surgical evaluation. He also has question of bladder cancer and scheduled for cystoscopy. PET scan will also clarify the extent of disease. Discussed with the patient and the daughter in detail about the diagnosis and reviewed all the available blood tests and pathology reports with them. Discussed with them in general about the management of the gastric cancer and the role of chemotherapy. Also discussed with them about the benefit, risk, side effect toxicity of the chemotherapy. At this point he is not sure about the chemotherapy and wants to wait for the other workup and surgical evaluation and also know more about the status ofbladder cancer after cystoscopy. PLAN: Return to clinic on 03/11/2023 for further discussion about the options of treatment after PET scanfinding, Urology finding and surgical recommendation. The patient voiced understanding of all of the above. All questions and concerns were addressed in an apparently satisfactory manner. Virgen Aquino MD (This note was completed using the dictation program Fluency Direct. As such, there may be misspellings, word substitutions, or other variations that should not change the essence of the clinical content of this encounter note. If there is need for further clarification, please direct questions to me.) documented in this encounter Nursing Notes * Swapna Elder CMA - 02/09/2023 2:54 PM EDT Patient identifed by name and birthdate Do you have any concerns about pain management for today's visit? No Living Will or Advance Directive for Health Care as noted on the problem list. [facility] is a way you can talk to your provider on line through e-mail. Would you like to sign up? I can activate it for you? ALREADY ACTIVE Filed Vitals: 02/09/23 1453 02/09/23 1454 BP: 99/62 107/66 Pulse: 76 Resp: 16 Temp: 36.7 C (98.1 F) TempSrc: Tympanic SpO2: 94% Weight: 103.7 kg (228 lb 9.6 oz) Height: 1.67 m (5' 5.75") Patient was instructed to not get up on the exam table/exam chair until directed and assisted by their provider; patient is to remain seated in the chair/ wheelchair/ exam table/ exam chair for fall prevention and safety reasons. Patient is aware to have assistance to step down off exam table/exam chair with personnel. Patient voiced full comprehension of instructions. documented in this encounter Plan of Treatment Upcoming Encounters Date Type Specialty Care Team Description 02/19/2023 Appointment Radiology 03/02/2023 Office Visit General Surgery Carlos Schilling MD [address] [place] [address] 03/10/2023 Office Visit Hematology Oncology Virgen Aquino MD [address] [place] [address] 06/17/2023 Office Visit Family Medicine Sherice Silva MD [address] [place] [address] Scheduled Referrals Name Type Priority Associated Diagnoses Orde r Schedule HEMATOLOGY/ONCOLOG Y REFERRAL OP Referral Within 10 days (routine) Gastric adenocarcinoma (HCC) Ordered: 02/04/2023 Health Maintenance Due Date Last Done Comments DIABETES-EYE EXAM 1963 Hepatitis C Screening 1963 DTaP,Tdap,and Td Vaccines (1 - Tdap) 1965 Zoster Vaccines (1 of 2) 1996 HbA1c 10/26/2022 04/28/2022, 0708/2021, 01/11/2002, Additional history exists COVID-19 Vaccine ( [...] as of this encounter Visit Diagnoses Diagnosis Malignant neoplasm of overlapping sites of stomach (HCC)- Primary Malignant neoplasm of other specified sites of stomach documented in this encounter Advance Directives Latest [...] Advance Directives occurred with: Patient Care Teams Tax Agent Relationship Specialty Start Date End Date Sherice Silva MD [address] [place] [address] PCP - General Family Medicine 11/27/22 documented as of this encounter
--- OUTSIDE RECORDS SUMMARY | 2023-03-10 23:05 | External Medical Summary | Summary of Care ---
Author Name Unknown Organization [facility] Address [address] [place] [address] Phone [phone] Care Team Providers Care Engineering Tech Name Role Phone Sherice Silva MD Primary Care Prov ider Encounter Details Date Type Department Care Team Description 02/05/2023 Orders Only Laboratory, [place] [address] [place] [address] Jass Harding MD [address] [place] [phone] Bladder rupture, nontraumatic*; Other chronic pain; Backache Allergies Active Allergy Reactions Severity Noted Date [...] (Pfizer) 08/01/2020,07/11/2020 Pneumococcal Conjugate Vacci ne, 20-valent ([id number]) 05/09/2022 Season Influenza, Quad, PF, Adjuvanted, 65+ [...] Team Description 02/09/2023 Office Visit Hematology Oncology [place], Virgen Pena MD [address] [place] [address] 02/19/2023 Appointment Radiology 03/02/2023 Office Visit General Surgery Carlos Schilling MD [address] [place], [place] [id number] 06/17/2023 Office Visit Family Medicine Sherice Silva MD [facility] [place], [place] [phone] Scheduled Orders Name Type Priority Associated Diagnoses Orde r Schedule CBC WITH WBC DIFFERENTIAL Lab Routine Bladder rupture, nontraumatic Expected: 02/05/2023, Expires: 02/06/2024 CULTURE, URINE, QUANTITATIVE Lab Routine Bladder rupture, nontraumatic Other chronic pain Backache Expected: 02/05/2023, Expires: 02/06/2024 BASIC METABOLIC PANEL Lab Routine Bladder rupture, nontraumatic Expected: 02/05/2023, Expires: 02/06/2024 Health Maintenance Due Date Last Done Comments [...] as of this encounter Visit Diagnoses Diagnosis Bladder rupture, nontraumatic- Primary Nontraumatic rupture of bladder Other chronic pain Backache Backache, unspecified documented in this encounter Advance Directives [...] Advance Directives occurred with: Patient Care Teams Engineering Tech Relationship Specialty Start Date End Date Sherice Silva MD [facility] [place] [address] PCP - General Family Medicine 11/27/22 documented as of this encounter
--- OUTSIDE RECORDS SUMMARY | 2023-03-10 23:05 | External Medical Summary | Summary of Care ---
Author Name Unknown Organization [facility] Address [address] [place] [address] Phone [phone] Care Team Providers Care Migratory Game Bird Biologist Name Role Phone Sherice Silva MD Primary Care Prov ider Encounter Details Date Type Department Care Team Description 01/30/2023 Hospital Encounter Radiology Film [place] [address] [place] [address] Allergies Active Allergy Reactions Severity [...] (Pfizer) 08/01/2020,07/11/2020 Pneumococcal Conjugate Vacci ne, 20-valent ([id number]) 05/09/2022 Season Influenza, Quad, PF, Adjuvanted, 65+ [...] Hematology Oncology Virgen Aquino MD [address] [place] [address] 02/19/2023 Appointment Radiology 06/17/2023 Office Visit Family Medicine Sherice Silva MD [address] [place] [address] Health Maintenance Due Date Last Done Comments [...] interpreted or resulted by a [facility] or [facility] contracted radiologist. Sherice Massey MD RAD CT [...] Advance Directives occurred with: Patient Care Teams Migratory Game Bird Biologist Relationship Specialty Start Date End Date Sherice Silva MD [address] [place] [address] PCP - General Family Medicine 11/27/22 documented as of this encounter
--- OUTSIDE RECORDS SUMMARY | 2023-03-10 23:05 | External Medical Summary | Summary of Care ---
Author Name Unknown Organization [facility] Address [address] [place] [address] Phone [phone] Care Team Providers Care Dry Transfer Man Name Role Phone Sherice Silva MD Primary Care Prov ider Reason for Referral * Precert (Within 10 days (routine)) - Pending Review Specialty Diagnoses / Procedures Referred By Contac t Referred To Contact Radiology Diagnoses Malignant neoplasm of stomach (HCC) Procedures PET CT SKULL BASE TO MID-THIGH Christina Rivera, Abilio Flynn MD [address] [place] [address] Referral ID Status Reason Start Date Expiration Date V isits Requested Visits Authorized [id number] Pending Review 02/06/[phone] Encounter Details Date Type Department Care Team Description 02/06/2023 Orders Only Access Center, [place] [address] [facility] *DO NOT REMOVE THIS DEPARTMENT* [place] [address] Requisition, External Radiology [address] [place] [address] Malignant neoplasm of stomach (HCC)* Allergies Active Allergy Reactions Severity Noted Date Comments Duloxetine Hcl Edema Other 04/27/2022 Apixaban Itching,Rash 01/28/2023 Semaglutide(0.25 Or 0.5mg-Dos) Medium 04/21 Stomach pain/cramps documented as of this encounter (statuses as of 02/06/2023) Medications Medication Sig Dispensed Refills Start Date [...] as of this encounter (statuses as of 02/06/2023) Active Problems Problem Noted Date Hypertensive heart [...] as of this encounter (statuses as of 02/06/2023) Resolved Problems Problem Noted Date Resolved Date Viral pneumonia 04/27/2022 04/30/2022 documented as of this encounter (statuses as of 02/06/2023) Immunizations Name Administration Dates Next Due COVID-19 mRNA, LNP-s, No Pre serve, 2-Dose Series (CloudHashing) 08/01/2020,07/11/2020 Pneumococcal Conjugate Vacci ne, 20-valent ([id number]) 05/09/2022 Season Influenza, Quad, PF, Adjuvanted, 65+ [...] Team Description 02/09/2023 Office Visit Hematology Oncology MilesVirgen MD [address] [place] [address] 02/19/2023 Appointment Radiology 03/02/2023 Office Visit General Surgery Carlos Schilling MD [address] [place] [address] 06/17/2023 Office Visit Family Medicine Sherice Silva MD [facility] [place] [address] Scheduled Orders Name Type Priority Associated Diagnoses Orde r Schedule PET CT SKULL BASE TO MID-THIGH Medical Imaging Routine Malignant neoplasm of stomach (HCC) Expected: 02/06/2023, Expires: 04/20/2023 Health Maintenance Due Date Last Done Comments [...] Visit Diagnoses Diagnosis Malignant neoplasm of stomach (HCC)- Primary Malignant neoplasm of stomach, unspecified site documented in this encounter Advance Directives Latest [...] Advance Directives occurred with: Patient Care Teams Dry Transfer Man Relationship Specialty Start Date End Date Sherice Silva MD [address] [place] [address] PCP - General Family Medicine 11/27/22 documented as of this encounter
--- OUTSIDE RECORDS SUMMARY | 2023-03-10 23:05 | External Medical Summary | Summary of Care ---
Author Name Unknown Organization [facility] Address [address] [place] [address] Phone [phone] Care Team Providers Care Operations Executive Name Role Phone Sherice Silva MD Primary Care Prov ider Reason for Visit * Reason Comments Outpatient Testing Encounter Details Date Type Department Care Team (Late st Contact Info) Description 02/26/2023 9:50 AM EDT Laboratory Laboratory, [address] [address] [facility], Lab [address] [place] [address] Other specified disorders of bladder Allergies [...] (Pfizer) 08/01/2020,07/11/2020 Pneumococcal Conjugate Vacci ne, 20-valent ([id number]) 05/09/2022 Season Influenza, Quad, PF, Adjuvanted, 65+ [...] 9:20 AM EST Office Visit General Surgery, [place] [address] [place] [address] Carlos Schilling MD [address] [place] [address] 03/10/2023 2:15 PM EST Office Visit Hematology/Oncology [facility] [address] [facility] [place] [address] Virgen Aquino MD [address] [facility] [place] [address] 06/17/2023 10:00 AM EST Office Visit [address] [phone] Sherice Silva MD [address] [place] [phone] Health Maintenance Due Date Last Done Comments [...] Advance Directives occurred with: Patient Care Teams Operations Executive Relationship Specialty Start Date End Date Sherice Silva MD [address] [place] [address] PCP - General Family Medicine 11/27/22 documented as of this encounter
--- OUTSIDE RECORDS SUMMARY | 2023-03-10 23:05 | External Medical Summary ---
Author Name Unknown Address Unknown Organization K01:[facility] [place] [address] [place] [id number] Laboratory Report Ordering Provider Test Date Status SUBHASH PEREZ 02/26/2023 10:06:51 Final Observation Date Value Abnormality Reference (Units) Status Bacteria identified in Specimen by Culture 02/26/2023 10:06:51 No significant growth Final Test: Culture, Urine, Quant itative
Specimen Source: Urine, Unspecified
Specimen Type: Urine
Specimen Date: 02/26/2023 10:06 AM
Result Date: 02/27/2023 12:03 PM
Result Status: Final result
Resulting Lab: [facility]
[address]
[place] [address]

CULTURE

No significant growth

null Performing Location [facility] - [address] [facility] [address]
--- OUTSIDE RECORDS SUMMARY | 2023-03-10 23:05 | External Medical Summary | Summary of Care ---
Author Name Unknown Organization [facility] Address [address] [place] [address] Phone [phone] Care Team Providers Care Casket Assembler Name Role Phone Sherice Silva MD Primary Care Prov ider Reason for Referral * Evaluate & Treat - Unlimited Visits (Within 10 days (routine)) - Pending Review Specialty Diagnoses / Procedures Referred By Abdirashid t Referred To Contact SURGICAL ONCOLOGY / Surgical Oncology Diagnoses Gastric adenocarcinoma (HCC) Neto Junior MD [address] [facility] [place] [address] Carlos Schilling MD [address] [place] [address] Referral ID Status Reason Start Date Expiration Date Visits Requested Visits Authorized [id number] Pending Review Specialty Services Required [phone] Question Answer Referral Priority Within 10 days (routine) Where should this appointment be scheduled? 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 No Mets. Evaluate for Gastrectomy. Encounter Details Date Type Department Care Team Description 02/03/2023 Telephone Gastroenterology, [facility] [address] [place] [address] Neto Junior MD [address] [employer] [place] [address] Allergies Active Allergy Reactions Severity Noted Date [...] mRNA, LNP-s, No Pre serve, 2-Dose Series ([employer]) 08/01/2020,07/11/2020 Pneumococcal Conjugate Vacci ne, 20-valent ([id number]) 05/09/2022 Season Influenza, Quad, PF, Adjuvanted, 65+ [...] encounter Miscellaneous Notes * Telephone Encounter - Neto Junior MD - 02/03/2023 8:55 AM EDT Please arrange referral to , Gastric adenocarcinoma, [id number]. documented in this encounter Plan of Treatment Upcoming Encounters Date Type Specialty Care Team Description 06/17/2023 Office Visit Family Medicine Sherice Silva MD [address] [place] [address] Scheduled Procedures Name Priority Associated Diagnoses Date/Ti me ESOPHAGOGASTRODUODENOSCOPY ( EGD), FLEXIBLE, TRANSORAL, ENDOSCOPIC ULTRASOUND Gastric adenocarcinoma (HCC) 02/03/2023 7:46 AM EDT Scheduled Referrals Name Type Priority Associated Diagnoses Orde r Schedule SURGICAL ONCOLOGY REFERRAL OP Referral Within 10 days (routine) Gastric adenocarcinoma (HCC) Ordered: 02/03/2023 Health Maintenance Due Date Last Done Comments DIABETES-EYE EXAM 1963 Hepatitis C Screening 1963 DTaP,Tdap,and Td Vaccines (1 - Tdap) 1965 Zoster Vaccines (1 of 2) 1996 HbA1c 10/26/2022 04/28/2022, 0 08/2021, 01/11/2002, Additional history exists COVID-19 Vaccine ( season) 2022 08/01/2020, 07/11/2020 Influenza Vaccine (FLU shot) (#1) 2022 03/18/2022, 03/27/2020, 03/01/2018, Additional history exists Albumin/Creatinine Ratio 05/09/2023 023, 05/12/2020, 05/12/2020 Diabetic Foot Exam 05/09/2023 05/09/2022 GFR 07/03/2023 07/02/2022, 10/2022, 06/30/2022, Additional history exists Depression Screening [...] Advance Directives occurred with: Patient Care Teams Casket Assembler Relationship Specialty Start Date End Date Sherice Silva MD [address] [place] [address] [phone] PCP - General Family Medicine 11/27/22 documented as of this encounter
--- OUTSIDE RECORDS SUMMARY | 2023-03-10 23:06 | External Medical Summary | Summary of Care ---
Author Name Unknown Organization [facility] Address [address] [facility] [place] [address] Phone [phone] Care Team Providers Care Energy Specialist Name Role Phone Sherice Silva MD Primary Care Prov ider Reason for Visit * Reason Onset Date Comments Scheduling 01/27/2023 EUS Encounter Details Date Type Department Care Team Description 01/27/2023 Telephone Gastroenterology, [facility] 132 [facility] [place] [address] Case, Ryley Patterson, [address] [address] Scheduling (EUS) Allergies Active Allergy Reactions Severity Noted Date Comments Duloxetine Hcl Edema Other 04/27/2022 Apixaban Itching,Rash 01/28/2023 Semaglutide(0.25 Or 0.5mg-Dos) Medium 04/21 Stomach pain/cramps documented as of this encounter (statuses as of 01/30/2023) Medications Medication Sig Dispensed Refills Start Date [...] Additional Information Patient not taking.Reported on 01/28/2023 documented as of this encounter (statuses as of 01/30/2023) Active Problems Problem Noted Date Hypertensive heart [...] as of this encounter (statuses as of 01/30/2023) Resolved Problems Problem Noted Date Resolved Date Viral pneumonia 04/27/2022 04/30/2022 documented as of this encounter (statuses as of 01/30/2023) Immunizations Name Administration Dates Next Due COVID-19 mRNA, LNP-s, No Pre serve, 2-Dose Series ([employer]) 08/01/2020,07/11/2020 Pneumococcal Conjugate Vacci ne, 20-valent ([id number]) 05/09/2022 Season Influenza, Quad, PF, Adjuvanted, 65+ [...] encounter Miscellaneous Notes * Telephone Encounter - YIFAN Larose - 01/30/2023 2:30 PM EDT Records scanned. * Telephone Encounter - YIFAN Larose - 01/30/2023 10:03 AM EDT Authorization received from [place] [facility], records to be scanned. * Telephone Encounter - YIFAN Larose - 01/28/2023 8:41 AM EDT Faxed [place] requesting authorization. * Addendum Note - Neto Sepulveda MD - 01/28/2023 8:34 AM EDTAddended by: NETO SEPULVEDA on: 01/28/2023 08:34 AM Modules accepted: Orders * Telephone Encounter - Neto Sepulveda MD - 01/28/2023 8:33 AM EDT Order placed. * Telephone Encounter - YIFAN Larose - 01/28/2023 8:21 AM EDT Upper EUS sahra'd 02/03 w/ [place]. Verbal instructions provided. Dr Mena - can you please place order, no order came through with fax? Thanks * Telephone Encounter - Neto Sepulveda MD - 01/27/2023 2:59 PM EDT Please schedule his EUS with me next week on Thursday or Thursday, 30 min is fine as this is a staging EUS. * Telephone Encounter - YIFAN Larose - 01/27/2023 12:52 PM EDT Records scanned, please review and advise on scheduling. * Telephone Encounter - YIFAN Brandt - 01/27/2023 12:12 PM EDT Fax received from [facility] to get patient scheduled for an EUS Ordering: Ryley Case Records placed in scanning On fax it says that jaclyn discussed this patient already. Once scanned, please forward to ross for review. Thank you documented in this encounter Plan of Treatment Upcoming Encounters Date Type Specialty Care Team Description 02/03/2023 Hospital Encounter Endoscopy Neto Sepulveda MD [address] [place] [address] 02/03/2023 Surgery Endoscopy Neto Sepulveda MD [address] [place] [address] ESOPHAGOGASTRODUODENOSCOPY (EGD), FLEXIBLE, TRANSORAL, ENDOSCOPIC ULTRASOUND 06/17/2023 Office Visit Family Medicine Sherice Silva MD [address] [place] [address] Scheduled Orders Name Type Priority Associated Diagnoses Orde r Schedule US ENDOSCOPIC Medical Imaging Routine Gastric adenocarcinoma (HCC) Expected: 01/28/2023, Expires: 02/29/2024 Scheduled Procedures Name Priority Associated Diagnoses Date/Ti me ESOPHAGOGASTRODUODENOSCOPY ( EGD), FLEXIBLE, TRANSORAL, ENDOSCOPIC ULTRASOUND Gastric adenocarcinoma (HCC) 02/03/2023 7:30 AM EDT Health Maintenance Due Date Last [...] Primary Malignant neoplasm of stomach, unspecified site Gastric adenocarcinoma (HCC) Malignant neoplasm of stomach, unspecified site documented in this encounter Additional Health Concerns Infection Onset Date Last Indicated Resolved Time Norovirus 07/01/2022 07/01/2022 documented as of this encounter Advance Directives [...] Advance Directives occurred with: Patient Care Teams Energy Specialist Relationship Specialty Start Date End Date Sherice Silva MD [address] [place] [id number] PCP - General Family Medicine 11/27/22 documented as of this encounter
--- OUTSIDE RECORDS SUMMARY | 2023-03-10 23:06 | External Medical Summary | Summary of Care ---
Author Name Unknown Organization [facility] Address [address] [place] [address] Phone [phone] Care Team Providers Care Bottom Sprayer Name Role Phone Sherice Silva MD Primary Care Prov ider Reason for Visit * Reason Onset Date Comments Scheduling 01/27/2023 EUS Encounter Details Date Type Department Care Team Description 01/27/2023 Telephone Gastroenterology, [facility] 132 [facility] [place] [address] Case, Ryley Patterson, [address] [address] Scheduling (EUS) Allergies Active Allergy Reactions Severity Noted Date Comments Duloxetine Hcl Edema Other 04/27/2022 Semaglutide(0.25 Or 0.5mg-Dos) Medium 04/21 Stomach pain/cramps documented as of this encounter (statuses as of 01/27/2023) Medications Medication Sig Dispensed Refills Start Date End Date Status Insulin Detemir 100 UNIT/ML Subcutaneous Solution (Levemir) Inject 20 Units under the skin daily. 0 Active metFORMIN HCl 500 MG Oral Tablet (Glucophage) Take 2 Tablets by mouth 2 times a day with morning and evening meals. 0 Active Simvastatin 80 MG Oral Tablet (Zocor) Take 0.5 Tablets by mouth daily. 0 Active Aspirin 81 MG Oral Capsule Take 81 mg by mouth daily. 0 Active Cholecalciferol 25 MCG (1000 UT) Oral Capsule Take 1 Capsule by mouth in the morning. 0 Active Metoprolol Succinate ER 50 MG Oral Tablet Extended Release 24 Hour (toPROL XL) Take 1 Tablet by mouth in the morning. Do not start before May 01, 2022. 30 Tablet 0 05/01/2022 Active PARoxetine HCl 20 MG Oral Tablet (pAXil) Take 1 Tablet by mouth in the morning. 0 Active Furosemide 40 MG Oral Tablet (Lasix) Take 1 Tablet by mouth as needed. Weight gain of 3 lbs in one day. 0 Active Pantoprazole Sodium 40 MG Oral Tablet Delayed Release (Protonix) TAKE 1 TABLET BY MOUTH TWICE DAILY (MORNING AND BEDTIME) 60 Tablet 3 08/13/2022 Active Cyanocobalamin 1000 MCG Oral Tablet (Cyanocobalamin) Take 1 Tablet by mouth in the morning. 0 Active Empagliflozin 10 MG Oral Tablet (Jardiance) Take 1 Tablet by mouth in the morning. 0 Active Tamsulosin HCl 0.4 MG Oral Capsule (Flomax) Take 1 Capsule by mouth in the morning. 90 Capsule 3 12/04/2022 Active Eliquis 5 MG Oral Tablet (Apixaban) TAKE 1 TABLET BY MOUTH TWICE DAILY (MORNING AND BEDTIME) 180 Tablet 1 12/30/2022 Active documented as of this encounter (statuses as of 01/27/2023) Active Problems Problem Noted Date Hypertensive heart disease with congesti ve heart failure 12/04/2022 AAA (abdominal aortic aneurysm) 07/10/19 23 Overview: 3.0 cm AAA noted on CT abd/pel 06/30/22 Atrial fibrillation 07/08/2022 Intractable nausea and vomiting 07/01/19 23 Heart failure with acute decompensation, type unknown [...] as of this encounter (statuses as of 01/27/2023) Resolved Problems Problem Noted Date Resolved Date Viral pneumonia 04/27/2022 04/30/2022 documented as of this encounter (statuses as of 01/27/2023) Immunizations Name Administration Dates Next Due COVID-19 mRNA, LNP-s, No Pre serve, 2-Dose Series (Pfizer) 08/01/2020,07/11/2020 Pneumococcal Conjugate Vacci ne, 20-valent ([id number]) 05/09/2022 Season Influenza, Quad, PF, Adjuvanted, 65+ [...] Telephone Encounter - Neto Junior MD - 01/27/2023 2:59 PM EDT Please schedule his EUS with me next week on Thursday or Thursday, 30 min is fine as this is a staging EUS. * Telephone Encounter - YIFAN Larose - 01/27/2023 12:52 PM EDT Records scanned, please review and advise on scheduling. * Telephone Encounter - YIFAN Brandt - 01/27/2023 12:12 PM EDT Fax received from [facility] to get patient scheduled for an EUS Ordering: Ryley Case Records placed in scanning On fax it says that catherine and chet discussed this patient already. Once scanned, please forward to ross for review. Thank you documented in this encounter Plan of Treatment Upcoming Encounters Date Type Specialty Care Team Description 06/17/2023 Office Visit Family Medicine Sherice Silva MD [facility] [place] [address] Health Maintenance Due Date Last Done Comments [...] Not on filedocumented as of this encounter Additional Health Concerns Infection Onset [...] Advance Directives occurred with: Patient Care Teams Bottom Sprayer Relationship Specialty Start Date End Date Sherice Silva MD [address] [place] [address] PCP - General Family Medicine 11/27/22 documented as of this encounter
--- OUTSIDE RECORDS SUMMARY | 2023-03-10 23:06 | External Medical Summary | Summary of Care ---
Author Name Unknown Organization [facility] Address [address] [facility] [place] [address] Phone [phone] Care Team Providers Care Casino Change Attendant Name Role Phone Sherice Silva MD Primary Care Prov ider Reason for Visit * Reason Onset Date Comments Scheduling 01/27/2023 EUS Encounter Details Date Type Department Care Team Description 01/27/2023 Telephone Gastroenterology, [facility] 132 [facility] [place] [address] Case, Ryley Patterson, [address] [address] Scheduling (EUS) Allergies Active Allergy Reactions Severity Noted Date Comments Duloxetine Hcl Edema Other 04/27/2022 Semaglutide(0.25 Or 0.5mg-Dos) Medium 04/21 Stomach pain/cramps documented as of this encounter (statuses as of 01/28/2023) Medications Medication Sig Dispensed Refills Start Date [...] as of this encounter (statuses as of 01/28/2023) Active Problems Problem Noted Date Hypertensive heart [...] as of this encounter (statuses as of 01/28/2023) Resolved Problems Problem Noted Date Resolved Date Viral pneumonia 04/27/2022 04/30/2022 documented as of this encounter (statuses as of 01/28/2023) Immunizations Name Administration Dates Next Due COVID-19 mRNA, LNP-s, No Pre serve, 2-Dose Series (Pfizer) 08/01/2020,07/11/2020 Pneumococcal Conjugate Vacci ne, 20-valent ([id number]) 05/09/2022 Season Influenza, Quad, PF, Adjuvanted, 65+ [...] as of this encounter Miscellaneous Notes * Addendum Note - Neto Sepulveda MD [...] 01/27/2023 12:12 PM EDT Fax received from [facility] to get patient scheduled for an EUS Ordering: Ryley Case Records placed in scanning On fax it says that catherine and chet discussed this patient already. Once scanned, please forward to ross for review. Thank you documented in this encounter Plan of Treatment Upcoming Encounters Date Type Specialty Care Team Description 02/03/2023 Hospital Encounter Endoscopy eNto Sepulveda MD [address] [place] [address] 02/03/2023 Surgery Endoscopy Neto Sepulveda MD [address] [place] [address] ESOPHAGOGASTRODUODENOSCOPY (EGD), FLEXIBLE, TRANSORAL, ENDOSCOPIC ULTRASOUND 06/17/2023 Office Visit Family Medicine Sherice Silva MD [address] [place] [address] Scheduled Orders Name Type Priority Associated Diagnoses Orde r Schedule US ENDOSCOPIC Medical Imaging Routine Gastric adenocarcinoma (HCC) Expected: 01/28/2023, Expires: 02/29/2024 Scheduled Procedures Name Priority Associated Diagnoses Date/Ti me ESOPHAGOGASTRODUODENOSCOPY ( EGD), FLEXIBLE, TRANSORAL, ENDOSCOPIC ULTRASOUND Gastric cancer (HCC) 02/03/2023 7:30 AM EDT Health Maintenance Due Date Last Done Comments DIABETES-EYE EXAM 1963 Hepatitis C Screening 1963 DTaP,Tdap,and Td Vaccines (1 - Tdap) 1965 Zoster Vaccines (1 of 2) 1996 HbA1c 10/26/2022 04/28/2022, 07/08/2021, 01/11/2002, Additional history exists COVID-19 Vaccine (3 - 2022-24 season) 2022 08/01/2020, 07/11/2020 Influenza Vaccine (FLU shot) (#1) 2022 03/18/2022, 03/27/2020, 03/01/2018, Additional history exists Albumin/Creatinine Ratio 05/09/2023 023, 05/12/2020, 05/12/2020 Diabetic Foot Exam 05/09/2023 05/09/2022 GFR 07/03/2023 07/02/2022, 03/10/2022, 06/30/2022, Additional history exists Depression Screening 12/05/2023 [...] Malignant neoplasm of stomach, unspecified site Gastric cancer (HCC) Malignant neoplasm of stomach, unspecified site [...] Advance Directives occurred with: Patient Care Teams Casino Change Attendant Relationship Specialty Start Date End Date Sherice Silva MD [address] [place] [address] PCP - General Family Medicine 11/27/22 documented as of this encounter
--- OUTSIDE RECORDS SUMMARY | 2023-03-10 23:06 | External Medical Summary ---
Author Name Unknown Address Unknown Organization : Laboratory Report Ordering Provider Test Date Status COCO OLIVERA 02/03/2023 07:08:23 Final Observation Date Value Abnormality Reference (Units ) Status Glucose Point of Care 02/03/2023 07:08:23 151 Above high normal 70-120 (mg/dL) Final Performing Location
--- OUTSIDE RECORDS SUMMARY | 2023-03-10 23:06 | External Medical Summary | Summary of Care ---
Author Name Unknown Organization [facility] Address [address] [place] [facility] [place] [address] Phone [phone] Care Team Providers Care Dye House Worker Name Role Phone Sherice Silva MD Primary Care Prov ider Reason for Visit * Reason Onset Date Comments Scheduling 01/27/2023 EUS Encounter Details Date Type Department Care Team Description 01/27/2023 Telephone Gastroenterology, [facility] 132 [facility] [place] [address] Case, Ryley Patterson, [address] [address] Scheduling (EUS) Allergies Active Allergy Reactions Severity [...] (Pfizer) 08/01/2020,07/11/2020 Pneumococcal Conjugate Vacci ne, 20-valent ([id number]) 05/09/2022 Season Influenza, Quad, PF, Adjuvanted, 65+ [...] Miscellaneous Notes * Telephone Encounter - YIFAN Brandt - 01/27/2023 12:12 PM EDT Fax received from [facility] to get patient scheduled for an EUS Ordering: Ryley Case Records placed in scanning On fax it says that catherine and chet discussed this patient already. Once scanned, please forward to [facility] for review. Thank you documented in this encounter Plan of Treatment Upcoming Encounters Date Type Specialty Care Team Description 06/17/2023 Office Visit Family Medicine Sherice Silva MD [address] [place] [address] Health Maintenance Due Date Last Done Comments [...] Advance Directives occurred with: Patient Care Teams Dye House Worker Relationship Specialty Start Date End Date Sherice Silva MD [address] [place] [phone] PCP - General Family Medicine 11/27/22 documented as of this encounter
--- OUTSIDE RECORDS SUMMARY | 2023-03-10 23:06 | External Medical Summary | Summary of Care ---
Author Name Unknown Organization [facility] Address [address] [place] [facility] [place] [address] Phone [phone] Care Team Providers Care Greenskeeper Laborer Name Role Phone Sherice Silva MD Primary Care Prov ider Reason for Visit * Reason Onset Date Comments Scheduling 01/27/2023 EUS Encounter Details Date Type Department Care Team Description 01/27/2023 Telephone Gastroenterology, [facility] 132 [facility] [place] [address] Case, Ryley Patterson, [address] [address] Scheduling (EUS) Allergies Active Allergy Reactions Severity [...] (Pfizer) 08/01/2020,07/11/2020 Pneumococcal Conjugate Vacci ne, 20-valent ([id number]) 05/09/2022 Season Influenza, Quad, PF, Adjuvanted, 65+ [...] 01/27/2023 12:12 PM EDT Fax received from [facility] to get patient scheduled for an EUS Ordering: Ryley Case Records placed in scanning On fax it says that jaclyn discussed this patient already. Once scanned, please forward to ross for review. Thank you documented in this encounter Plan of Treatment Upcoming Encounters Date Type Specialty Care Team Description 06/17/2023 Office Visit Family Medicine Sherice Silva MD [address] [place] [address] Health Maintenance Due Date Last Done Comments [...] Advance Directives occurred with: Patient Care Teams Greenskeeper Laborer Relationship Specialty Start Date End Date Sherice Silva MD [address] [place] [address] PCP - General Family Medicine 11/27/22 documented as of this encounter
--- OUTSIDE RECORDS SUMMARY | 2023-03-10 23:06 | External Medical Summary | Summary of Care ---
Author Name Unknown Organization [facility] Address [address] [place] [address] Phone [phone] Care Team Providers Care Java Jsf Developer Name Role Phone Sherice Silva MD Primary Care Prov ider Reason for Visit * Reason Onset Date Comments Follow Up 01/05/2023 Phone call rashawn w up Encounter Details Date Type Department Care Team Description 01/05/2023 Scheduled Telephone Ancillary, [facility] [address] [place] [address] [facility], Nurse [facility] [address] [place] [address] Arrived Allergies Active Allergy Reactions Severity Noted Date Comments Duloxetine Hcl Edema Other 04/27/2022 Semaglutide(0.25 Or 0.5mg-Dos) Medium 04/21 Stomach pain/cramps documented as of this encounter (statuses as of 01/05/2023) Medications Medication Sig Dispensed Refills Start Date [...] as of this encounter (statuses as of 01/05/2023) Active Problems Problem Noted Date Hypertensive heart [...] as of this encounter (statuses as of 01/05/2023) Resolved Problems Problem Noted Date Resolved Date Viral pneumonia 04/27/2022 04/30/2022 documented as of this encounter (statuses as of 01/05/2023) Immunizations Name Administration Dates Next Due COVID-19 mRNA, LNP-s, No Pre serve, 2-Dose Series (Pfizer) 08/01/2020,07/11/2020 Pneumococcal Conjugate Vacci ne, 20-valent ([id number]) 05/09/2022 Season Influenza, Quad, PF, Adjuvanted, 65+ [...] encounter Miscellaneous Notes * Telephone Encounter - Halley Mckeon CMA - 01/05/2023 10:31 AM EDT Spoke pt for phone call follow up regarding Flomax. He states he is not sure if it is helping much.He is taking the medication in the morning. He feels it does help some cutting back how frequent heis going to the bathroom at night. He is waking up 3 to 4 times a night. [facility] He did not feel that helped him. He was on a medication at that time and is not sure what it w as. documented in this encounter Plan of Treatment Upcoming Encounters Date Type Specialty Care Team Description 06/17/2023 Office Visit Family Medicine Jasiel Massey, Sherice Lim MD [address] [place] [address] Health Maintenance Due Date Last Done Comments DIABETES-EYE EXAM 1963 Hepatitis C Screening 1963 DTaP,Tdap,and Td Vaccines (1 - Tdap) 1964 Zoster Vaccines (1 of 2) 1996 COVID-19 Vaccine (3 - Pfizer series) 09/26/2020 08/01/2020, 07/11/2020 HbA1c 10/26/2022 04/28/2022, 07/0 08/2021, 01/11/2002, Additional history exists Influenza Vaccine (FLU shot) (#1) 2022 03/18/2022, [...] Advance Directives occurred with: Patient Care Teams Java Jsf Developer Relationship Specialty Start Date End Date Sherice Silva MD [address] [place] [id number] PCP - General Family Medicine 11/27/22 documented as of this encounter
--- OUTSIDE RECORDS SUMMARY | 2023-03-10 23:06 | External Medical Summary | Summary of Care ---
Author Name Unknown Organization [facility] Address [address] [place] [facility] [place] [address] Phone [phone] Care Team Providers Care Track Supervisor Name Role Phone Sherice Silva MD Primary Care Prov ider Reason for Visit * Reason Onset Date Comments Scheduling 01/27/2023 EUS Encounter Details Date Type Department Care Team Description 01/27/2023 Telephone Gastroenterology, [facility] 132 [facility] [place] [address] Case, Ryley Patterson, [address] [address] Scheduling (EUS) Allergies Active Allergy Reactions Severity [...] (Pfizer) 08/01/2020,07/11/2020 Pneumococcal Conjugate Vacci ne, 20-valent ([id number]) 05/09/2022 Season Influenza, Quad, PF, Adjuvanted, 65+ [...] 01/27/2023 12:12 PM EDT Fax received from [facility] to get patient scheduled for an EUS Ordering: Ryley Case Records placed in scanning On fax it says that jaclyn discussed this patient already. Once scanned, please forward to ross for review. Thank you documented in this encounter Plan of Treatment Upcoming Encounters Date Type Specialty Care Team Description 06/17/2023 Office Visit Family Medicine Sherice Silva MD [address] [place] [address] Health Maintenance Due Date Last Done Comments [...] Advance Directives occurred with: Patient Care Teams Track Supervisor Relationship Specialty Start Date End Date Sherice Silva MD [address] [place] [address] PCP - General Family Medicine 11/27/22 documented as of this encounter
--- OUTSIDE RECORDS SUMMARY | 2023-03-10 23:06 | External Medical Summary ---
Author Name Unknown Address Unknown Organization : Laboratory Report Ordering Provider Test Date Status COCO OLIVERA 02/03/2023 08:22:27 Final Observation Date Value Abnormality Reference (Units ) Status Glucose Point of Care 02/03/2023 08:22:27 150 Above high normal 70-120 (mg/dL) Final Performing Location
--- OUTSIDE RECORDS SUMMARY | 2023-03-10 23:06 | External Medical Summary | Summary of Care ---
Author Name Unknown Organization [facility] Address [address] [place] [facility] [place] [address] Phone [phone] Care Team Providers Care Meat Inspector Name Role Phone Sherice Silva MD Primary Care Prov ider Reason for Visit * Reason Onset Date Comments Scheduling 01/27/2023 EUS Encounter Details Date Type Department Care Team Description 01/27/2023 Telephone Gastroenterology, [facility] 132 [facility] [place] [address] Case, Ryley Patterson, [address] [address] Scheduling (EUS) Allergies Active Allergy Reactions Severity [...] mRNA, LNP-s, No Pre serve, 2-Dose Series ([employer]) 08/01/2020,07/11/2020 Pneumococcal Conjugate Vacci ne, 20-valent ([id number]) 05/09/2022 Season Influenza, Quad, PF, Adjuvanted, 65+ [...] 01/30/2023 10:03 AM EDT Authorization received from [place] clinic, records to be scanned. * Telephone Encounter - YIFAN Larose - 01/28/2023 8:41 AM EDT Faxed [place] requesting authorization. * Addendum Note - Neto Sepulveda MD - 01/28/2023 8:34 AM EDTAddended by: NETO SEPULVEDA on: 01/28/2023 08:34 AM Modules accepted: Orders * Telephone Encounter - Neto Sepulveda MD - 01/28/2023 8:33 AM EDT Order placed. * Telephone Encounter - YIFAN Larose - 01/28/2023 8:21 AM EDT Upper EUS sahra'd 02/03 karolina/ [place]. Verbal instructions provided. Dr Mena - [...] 01/27/2023 12:12 PM EDT [place] [facility] [place] [facility] to get patient scheduled for an EUS Ordering: Ryley Case Records placed in scanning On fax it says that jaclyn discussed this patient already. Once scanned, please forward to ross for review. Thank you documented in this encounter Plan of Treatment Upcoming Encounters Date Type Specialty Care Team Description 02/03/2023 Hospital Encounter Endoscopy Neto Sepulveda MD [address] [place] [address] 02/03/2023 Surgery Endoscopy Neto Sepulveda MD [address] [place] [address] ESOPHAGOGASTRODUODENOSCOPY (EGD), FLEXIBLE, TRANSORAL, ENDOSCOPIC ULTRASOUND 06/17/2023 Office Visit Family Medicine Sherice Silva MD [address] [place] [address] Scheduled Orders Name Type Priority Associated [...] Advance Directives occurred with: Patient Care Teams Meat Inspector Relationship Specialty Start Date End Date Sherice Silva MD [facility] [place] [address] PCP - General Family Medicine 11/27/22 documented as of this encounter
--- OUTSIDE RECORDS SUMMARY | 2023-03-10 23:06 | External Medical Summary | Summary of Care ---
Author Name Unknown Organization [facility] Address [address] [place] [address] Phone [phone] Care Team Providers Care Submarine Advisory Team Watch Officer Name Role Phone Sherice Silva MD Primary Care Prov ider Encounter Details Date Type Department Care Team Description 01/26/2023 Orders Only [facility], [address] [address] Sherice Silva MD [address] [place] [id number] Allergies Active Allergy Reactions Severity Noted Date Comments Duloxetine Hcl Edema Other 04/27/2022 Semaglutide(0.25 Or 0.5mg-Dos) Medium 04/21 Stomach pain/cramps documented as of this encounter (statuses as of 01/26/2023) Medications Medication Sig Dispensed Refills Start Date [...] as of this encounter (statuses as of 01/26/2023) Active Problems Problem Noted Date Hypertensive heart [...] as of this encounter (statuses as of 01/26/2023) Resolved Problems Problem Noted Date Resolved Date Viral pneumonia 04/27/2022 04/30/2022 documented as of this encounter (statuses as of 01/26/2023) Immunizations Name Administration Dates Next Due COVID-19 mRNA, LNP-s, No Pre serve, 2-Dose Series (Pfizer) 08/01/2020,07/11/2020 Pneumococcal Conjugate Vacci ne, 20-valent ([id number]) 05/09/2022 Season Influenza, Quad, PF, Adjuvanted, 65+ [...] Medicine Jasiel Massey, Sherice Lim MD [address] [place] [address] Health Maintenance Due Date Last Done Comments [...] Procedure Name Priority Date/Time Associated Diagnosis Comments UPPER ENDOSCOPY, OUTSIDE PROCEDURE Routine 01/23/2023 documented in this encounter Results * UPPER ENDOSCOPY, OUTSIDE PROCEDURE (01/23/2023) 01/23/2023 History Per Patient GASTRO UPPER OUTSIDE LAB (SEE SCANNED REPORT) documented in this encounter Additional Health Concerns [...] Advance Directives occurred with: Patient Care Teams Submarine Advisory Team Watch Officer Relationship Specialty Start Date End Date Sherice Silva MD [address] [place] [address] PCP - General Family Medicine 11/27/22 documented as of this encounter
--- OUTSIDE RECORDS SUMMARY | 2023-03-10 23:06 | External Medical Summary | Summary of Care ---
Author Name Unknown Organization [facility] Address [address] [facility] [place] [address] Phone [phone] Care Team Providers Care Psychiatric Registered Nurse Name Role Phone Sherice Silva MD Primary Care Prov ider Reason for Visit * Reason Onset Date Comments Scheduling 01/27/2023 EUS Encounter Details Date Type Department Care Team Description 01/27/2023 Telephone Gastroenterology, [facility] 132 [facility] [place] [address] Case, Ryley Patterson, [address] [address] Scheduling (EUS) Allergies Active Allergy Reactions Severity [...] (Pfizer) 08/01/2020,07/11/2020 Pneumococcal Conjugate Vacci ne, 20-valent ([id number]) 05/09/2022 Season Influenza, Quad, PF, Adjuvanted, 65+ [...] fax? Thanks * Telephone Encounter - Neto Junior MD [...] 01/27/2023 12:12 PM EDT [place] [facility] [facility] [place] get patient scheduled for an EUS Ordering: Ryley Case Records placed in scanning On fax it says that catherine and chet discussed this patient already. Once scanned, please forward to ross for review. Thank you documented in this encounter Plan of Treatment Upcoming Encounters Date Type Specialty Care Team Description 02/03/2023 Hospital Encounter Endoscopy Neto Junior MD [address] [place] [address] 02/03/2023 Surgery Endoscopy Neto Junior MD [address] [place] [address] ESOPHAGOGASTRODUODENOSCOPY (EGD), FLEXIBLE, TRANSORAL, ENDOSCOPIC ULTRASOUND 06/17/2023 Office Visit Family Medicine Sherice Silva MD [facility] [place] [address] Scheduled Procedures Name Priority Associated Diagnoses Date/Ti me ESOPHAGOGASTRODUODENOSCOPY ( EGD), FLEXIBLE, TRANSORAL, ENDOSCOPIC ULTRASOUND Gastric cancer (HCC) 02/03/2023 7:30 AM EDT Health Maintenance Due Date Last Done Comments DIABETES-EYE EXAM 1963 Hepatitis C Screening 1963 DTaP,Tdap,and Td Vaccines (1 - Tdap) 1965 Zoster Vaccines (1 of 2) 1996 HbA1c 10/26/2022 04/28/2022, 07/0 08/2021, 01/11/2002, Additional history exists COVID-19 Vaccine ( - season) 2022 08/01/2020, 07/11/2020 Influenza Vaccine [...] Advance Directives occurred with: Patient Care Teams Psychiatric Registered Nurse Relationship Specialty Start Date End Date Sherice Silva MD [address] [place] [phone] PCP - General Family Medicine 11/27/22 documented as of this encounter
--- OUTSIDE RECORDS SUMMARY | 2023-03-10 23:06 | External Medical Summary | Summary of Care ---
Author Name Unknown Organization [facility] Address [address] [place] [place] [place] [address] Phone [phone] Care Team Providers Care Databases Software Consultant Name Role Phone Sherice Silva MD Primary Care Prov ider Reason for Visit * Reason Onset Date Comments Scheduling 01/27/2023 EUS Encounter Details Date Type Department Care Team Description 01/27/2023 Telephone Gastroenterology, [facility] 132 [facility] [place] [address] Case, Ryley Patterson, [address] [address] Scheduling (EUS) Allergies Active Allergy Reactions Severity Noted Date Comments Duloxetine Hcl Edema Other 04/27/2022 Apixaban Itching,Rash 01/28/2023 Semaglutide(0.25 Or 0.5mg-Dos) Medium 04/21 Stomach pain/cramps documented as of this encounter (statuses as of 02/02/2023) Medications Medication Sig Dispensed Refills Start Date [...] as of this encounter (statuses as of 02/02/2023) Active Problems Problem Noted Date Hypertensive heart [...] as of this encounter (statuses as of 02/02/2023) Resolved Problems Problem Noted Date Resolved Date Viral pneumonia 04/27/2022 04/30/2022 documented as of this encounter (statuses as of 02/02/2023) Immunizations Name Administration Dates Next Due COVID-19 mRNA, LNP-s, No Pre serve, 2-Dose Series (Lang[employer]) 08/01/2020,07/11/2020 Pneumococcal Conjugate Vacci ne, 20-valent ([id number]) 05/09/2022 Season Influenza, Quad, PF, Adjuvanted, 65+ [...] * Telephone Encounter - YIFAN Larose - 02/02/2023 2:[address] abd/pelvis and CT chest scanned. * Telephone Encounter - YIFAN Larose - 01/30/2023 2:30 PM EDT Records scanned. * Telephone Encounter - YIFAN Larose - 01/30/2023 10:03 AM EDT Authorization received from [place] clinic, records to be scanned. * Telephone Encounter - YIFAN Larose - 01/28/2023 8:41 AM EDT Faxed [place] requesting authorization. * Addendum Note - Neto [...] 01/27/2023 12:12 PM EDT Fax received from [facility] to get patient scheduled for an EUS Ordering: Ryley Case Records placed in scanning On fax it says that catherine and chet discussed this patient already. Once scanned, please forward to ross for review. Thank you documented in this encounter Plan of Treatment Upcoming Encounters Date Type Specialty Care Team Description 02/03/2023 Hospital Encounter Endoscopy Neto Sepulveda MD [address] [place] [address] 02/03/2023 Surgery Endoscopy Neto Sepulveda MD [address] [place] [address] ESOPHAGOGASTRODUODENOSCOPY (EGD), FLEXIBLE, TRANSORAL, ENDOSCOPIC ULTRASOUND 06/17/2023 Office Visit Family Medicine Sherice Silva MD [address] [place] [address] Scheduled Orders Name Type Priority Associated Diagnoses Orde r Schedule US ENDOSCOPIC Medical Imaging Routine Gastric adenocarcinoma (HCC) Expected: 01/28/2023, Expires: 02/29/2024 Scheduled Procedures Name Priority Associated Diagnoses Date/Ti ne ESOPHAGOGASTRODUODENOSCOPY ( EGD), FLEXIBLE, TRANSORAL, ENDOSCOPIC ULTRASOUND [...] 03/27/2020, 03/01/2018, Additional history exists Albumin/Creatinine Ratio 05/09/20232 023, 05/12/2020, 05/12/2020 Diabetic Foot Exam 05/09/2023 [...] Procedure Name Priority Date/Time Associated Diagnosis Comments CT ABD/PELVIS W IV AND W ORA L CONTRAST Routine 01/30/2023 CT CHEST W CONTRAST Routine 01/30/2023 documented in this encounter Results * CT CHEST W CONTRAST (01/30/2023) Anatomical Region Laterality Modality Chest, Body, Cardio Other History Per Patient RAD CT * CT ABD/PELVIS W IV AND W ORAL CONTRAST (01/30/2023) Anatomical Region Laterality Modality Body, Abdomen, Pelvis Other History Per Patient RAD CT documented in this encounter Visit Diagnoses Diagnosis Gastric adenocarcinoma [...] Advance Directives occurred with: Patient Care Teams Databases Software Consultant Relationship Specialty Start Date End Date Sherice Silva MD [address] [place] [address] PCP - General Family Medicine 11/27/22 documented as of this encounter
--- OUTSIDE RECORDS SUMMARY | 2023-03-10 23:06 | External Medical Summary | Summary of Care ---
Author Name Unknown Organization [facility] Address [address] [place] [address] Phone [phone] Care Team Providers Care Brace End Mainspring Former Name Role Phone Sherice Silva MD Primary Care Prov ider Reason for Visit * Reason Onset Date Comments Scheduling 01/27/2023 EUS Encounter Details Date Type Department Care Team Description 01/27/2023 Telephone Gastroenterology, [facility] 132 [facility] [place] [address] Case, Ryley Patterson, [address] [address] Scheduling (EUS) Allergies Active Allergy Reactions Severity [...] mRNA, LNP-s, No Pre serve, 2-Dose Series ([employer]) 08/01/2020,07/11/2020 Pneumococcal Conjugate Vacci ne, 20-valent ([id number]) 05/09/2022 Season Influenza, Quad, PF, Adjuvanted, 65+ [...] 01/30/2023 10:03 AM EDT Authorization received from [place] clinic, records to be scanned. * Telephone Encounter - YIFAN Larose - 01/28/2023 8:41 AM EDT Faxed [place] requesting authorization. * Addendum Note - Neto [...] 12:12 PM EDT Fax received from [facility] to get patient scheduled for an EUS Ordering: Ryley Case Records placed in scanning On fax it says that jaclyn discussed this patient already. Once scanned, please forward to ross for review. Thank you documented in this encounter Plan of Treatment Upcoming Encounters Date Type Specialty Care Team Description 02/03/2023 Hospital Encounter Endoscopy Neto Sepulveda MD [address] [place] [address] 02/03/2023 Surgery Endoscopy Neto Sepulveda MD [address] [place] [address] ESOPHAGOGASTRODUODENOSCOPY (EGD), FLEXIBLE, TRANSORAL, ENDOSCOPIC ULTRASOUND 06/17/2023 Office Visit Family Medicine Sherice Silva MD [address] [facility] [place] [address] Scheduled Orders Name Type Priority Associated [...] Advance Directives occurred with: Patient Care Teams Brace End Mainspring Former Relationship Specialty Start Date End Date Sherice Silva MD [facility] [place] [address] PCP - General Family Medicine 11/27/22 documented as of this encounter
--- OUTSIDE RECORDS SUMMARY | 2023-03-10 23:06 | External Medical Summary | Summary of Care ---
Author Name Unknown Organization [facility] Address [address] [facility] [place] [address] Phone [phone] Care Team Providers Care Licensed Life And Health Agent Name Role Phone Sherice Silva MD Primary Care Prov ider Reason for Visit * Reason Onset Date Comments Scheduling 01/27/2023 EUS Encounter Details Date Type Department Care Team Description 01/27/2023 Telephone Gastroenterology, [facility] 132 [facility] [place] [address] Case, Ryley Patterson, [address] [address] Scheduling (EUS) Allergies Active Allergy Reactions Severity [...] (Pfizer) 08/01/2020,07/11/2020 Pneumococcal Conjugate Vacci ne, 20-valent ([id number]) 05/09/2022 Season Influenza, Quad, PF, Adjuvanted, 65+ [...] Larose - 01/28/2023 8:41 AM EDT Faxed [place]. * Addendum Note - Neto [...] 01/27/2023 12:12 PM EDT Fax received from [facility] to get patient scheduled for an EUS Ordering: Ryley Case Records placed in scanning On fax it says that catherine and chet discussed this patient already. Once scanned, please forward to stariaemy for review. Thank you documented in this encounter Plan of Treatment Upcoming Encounters Date Type Specialty Care Team Description 02/03/2023 Hospital Encounter Endoscopy Neto Sepulveda MD [address] [place] [address] 02/03/2023 Surgery Endoscopy Neto Sepulveda MD [address] [place] [address] ESOPHAGOGASTRODUODENOSCOPY (EGD), FLEXIBLE, TRANSORAL, ENDOSCOPIC ULTRASOUND 06/17/2023 Office Visit Family Medicine Sherice Silva MD [facility] [place] [address] Scheduled Orders Name Type Priority [...] Advance Directives occurred with: Patient Care Teams Licensed Life And Health Agent Relationship Specialty Start Date End Date Sherice Silva MD [address] [place] [address] PCP - General Family Medicine 11/27/22 documented as of this encounter
--- OUTSIDE RECORDS SUMMARY | 2023-03-10 23:06 | External Medical Summary | Summary of Care ---
Author Name Unknown Organization [facility] Address [address] [place] [facility] [place] [address] Phone [phone] Care Team Providers Care Under Cutting Machine Operator Name Role Phone Sherice Silva MD Primary Care Prov ider Reason for Visit * Reason Onset Date Comments Scheduling 01/27/2023 EUS Encounter Details Date Type Department Care Team Description 01/27/2023 Telephone Gastroenterology, [facility] 132 [facility] [place] [address] Case, Ryley Patterson, [address] [address] Scheduling (EUS) Allergies Active Allergy Reactions Severity [...] (Pfizer) 08/01/2020,07/11/2020 Pneumococcal Conjugate Vacci ne, 20-valent ([id number]) 05/09/2022 Season Influenza, Quad, PF, Adjuvanted, 65+ [...] 01/27/2023 12:12 PM EDT Fax received from [facility] to get patient scheduled for an EUS Ordering: Ryley Case Records placed in scanning On fax it says that catherine and chet discussed this patient already. Once scanned, please forward to ross for review. Thank you documented in this encounter Plan of Treatment Upcoming Encounters Date Type Specialty Care Team Description 06/17/2023 Office Visit Family Medicine Sherice Silva MD [facility] [place] [address] Health Maintenance Due Date Last Done Comments [...] Advance Directives occurred with: Patient Care Teams Under Cutting Machine Operator Relationship Specialty Start Date End Date Sherice Silva MD [address] [place] [place] [address] PCP - General Family Medicine 11/27/22 documented as of this encounter
--- OUTSIDE RECORDS SUMMARY | 2023-03-10 23:06 | External Medical Summary | Summary of Care ---
Author Name Unknown Organization [facility] Address [address] [facility] [place] [address] Phone [phone] Care Team Providers Care Historiography Teacher Name Role Phone Sherice Silva MD Primary Care Prov ider Reason for Visit * Reason Onset Date Comments Scheduling 01/27/2023 EUS Encounter Details Date Type Department Care Team Description 01/27/2023 Telephone Gastroenterology, [facility] 132 [employer] [place] [address] Case, Ryley Patterson, [address] [address] Scheduling (EUS) Allergies Active Allergy Reactions Severity [...] (Pfizer) 08/01/2020,07/11/2020 Pneumococcal Conjugate Vacci ne, 20-valent ([id number]) 05/09/2022 Season Influenza, Quad, PF, Adjuvanted, 65+ [...] 01/27/2023 12:12 PM EDT Fax received from [facility] [facility] to get patient scheduled for an EUS Ordering: Ryley Case Records placed in scanning On fax it says that catherine and chet discussed this patient already. Once scanned, please forward to ross for review. Thank you documented in this encounter Plan of Treatment Upcoming Encounters Date Type Specialty Care Team Description 02/03/2023 Hospital Encounter Endoscopy Neto Junior MD [address] [place] [address] 02/03/2023 Surgery Endoscopy Neto Junior MD [address] [place] [address] ESOPHAGOGASTRODUODENOSCOPY (EGD), FLEXIBLE, TRANSORAL, ENDOSCOPIC ULTRASOUND 06/17/2023 Office Visit Family Medicine Sherice Silva MD [facility] [place] [address] Scheduled Procedures Name Priority Associated Diagnoses Date/Ti [...] Advance Directives occurred with: Patient Care Teams Historiography Teacher Relationship Specialty Start Date End Date Sherice Silva MD [address] [place] [id number] PCP - General Family Medicine 11/27/22 documented as of this encounter
--- OUTSIDE RECORDS SUMMARY | 2023-03-10 23:07 | External Medical Summary | Summary of Care ---
Author Name Unknown Organization [facility] Address [address] [place] [address] Phone [phone] Care Team Providers Care Shanker Out Name Role Phone Sherice Silva MD Primary Care Prov ider Reason for Visit * Reason Onset Date Comments case management 12/04/2022 Encounter Details Date Type Department Care Team Description 12/04/2022 Lieutenant Governor Telephone Care Coordination [address], [place] [id number] Mayelin Kolb, RN [address], [place] [id number] case management Allergies Active Allergy Reactions Severity Noted Date Comments Duloxetine Hcl Edema Other 04/27/2022 Semaglutide(0.25 Or 0.5mg-Dos) Medium 04/21 Stomach pain/cramps documented as of this encounter (statuses as of 12/04/2022) Medications Medication Sig Dispensed Refills Start Date [...] AND BEDTIME) 60 Tablet 3 08/13/2022 Active Eliquis 5 MG Oral Tablet (Apixaban) [...] the morning. 90 Capsule 3 12/04/2022 Active documented as of this encounter (statuses as of 12/04/2022) Active Problems Problem Noted Date Hypertensive heart [...] as of this encounter (statuses as of 12/04/2022) Resolved Problems Problem Noted Date Resolved Date Viral pneumonia 04/27/2022 04/30/2022 documented as of this encounter (statuses as of 12/04/2022) Immunizations Name Administration Dates Next Due COVID-19 mRNA, LNP-s, No Pre serve, 2-Dose Series (Pfizer) 08/01/2020,07/11/2020 Pneumococcal Conjugate Vacci ne, 20-valent ([id number]) 05/09/2022 Seasonal Influenza Virus Vac cine, Unspecified Formulation 03/01/2018,02/27/2015,04/04/2014,2000 Seasonal Influenza, Quadriva lent Hd (Fluzone Hd) 03/18/2022 Seasonal Influenza, Quadriva lent, No Preserve, Adjuvanted, 65+ Yrs, IM 03/27/2020 Seasonal Influenza, Split, I IV3, With Preserve, [...] encounter Miscellaneous Notes * Telephone Encounter - Mayelin Kolb RN - 12/04/2022 11:44 AM EDT Lieutenant Governor Progress Note: Date: 12/04/22 Assigned Patient Tier: 3 Connected with patient via office visit. Verified patient name/. Assessment: Pt. noted the following: states that he has been doing well. Here for a f/u visit with PCP's office. Knows how to contact PCP as needed. Denies any increased SOB and did not appear to be SOB at this time. Denies any increased swelling in his BLE. Feels weight has been stable. Did you receive an alert for an annual wellness visit? No Is this call for a hospital, fci or rehab facility discharge to home? No Medication Reconciliation: Medication Reconciliation completed: yes Review of Current goals: Discussed the following patient-centered CM goals with the patient during this discussion: -HEART FAILURE: Achieve successful management of heart failure. -Status: On Track Was able to relate to take extra lasix as needed for increased weight over 2 lbs in 1 day. -SAFETY: Prevent falls or injuries -Status: On Track has had no falls through this review. Reinforced safety education/fall prevention -Advanced Directive (AD): Patient will complete Advanced Care Planning -Status: On Track Educated to bring copy to place on file. -GI: Patient will have GI issues addressed -Status: On Track has had f/u with GI including colonoscopy. Will f/u as needed. COPD Patient: No CHF Patient: YES Swelling: denies increased swelling in BLE CM Plan: Reviewed 3 Red Flags with patient. Advised to call CM with any of the following: Red Flag 1: increased SOB, cough, wt gain 2 lbs in one day or 5 lbs in 1 week. Remote Patient Monitoring: At this time, RPM not offered/considered for patient due to patient stable, plan to close from follow up. Plan for Future Contacts: Plan to close follow up. Advancement/Closure Plan: Close patient from case management as all goals and needs met. Patient provided CM contact information and encouraged to call with any changes in condition. Mayelin Kolb RN Outpatient Case Management documented in this encounter Plan of Treatment Upcoming Encounters Date Type Specialty Care Team Description 01/05/2023 Scheduled Telephone Ancillary [place], Nurse Mark Yoo [address] [place] [address] 06/17/2023 Office Visit Family Medicine Sherice Silva MD [address] [place] [address] Health Maintenance Due Date Last Done Comments Depression Screening, Annual for Pts 12 and Over 1957 DIABETES-EYE EXAM 1963 Hepatitis C Screening 1963 DTaP,Tdap,and Td Vaccines (1 - Tdap) 1965 Zoster Vaccines (1 of 2) 1996 COVID-19 Vaccine (3 - Pfizer series) 09/26/2020 08/01/2020, 07/11/2020 HbA1c 10/26/2022 04/28/2022, 07/0 08/2021, 01/11/2002, Additional history exists Influenza Vaccine (FLU shot) (#1) 2022 03/18/2022, 03/27/2020, 03/01/2018, Additional history exists Albumin/Creatinine Ratio 05/09/2023 023, 05/12/2020, 05/12/2020 DIABETES-FOOT EXAM 05/09/2023 05/09/2022 GFR 07/03/2023 07/02/2022, 03/0 10/2022, 06/30/2022, Additional history exists Pneumococcal Vaccine: 65+ Years [...] Advance Directives occurred with: Patient Care Teams Shanker Out Relationship Specialty Start Date End Date Sherice Silva MD [address] [place] [address] PCP - General Family Medicine 11/27/22 documented as of this encounter
--- OUTSIDE RECORDS SUMMARY | 2023-03-10 23:07 | External Medical Summary | Summary of Care ---
Author Name Unknown Organization [facility] Address [address] [place] [address] Phone [phone] Care Team Providers Care Integrated Program Teacher Name Role Phone Sherice Silva MD Primary Care Prov ider Reason for Visit * Reason Comments Status Check Encounter Details Date Type Department Care Team Description 12/04/2022 Office Visit [address] [address] Sherice Silva MD [address] [place], [place] [id number] Severe obesity with body mass index (BMI) of 35.0 to 39.9 with serious comorbidity (HCC)*; Risk and functional assessment; Hypertensive heart disease with congestive heart failure, unspecified heart failure type (HCC); Type 2 diabetes mellitus with diabetic polyneuropathy, unspecified whether longterm insulin use (HCC); Hyperlipidemia, unspecified hyperlipidemia type; Abdominal aortic aneurysm (AAA) without rupture, unspecified part (HCC); Atherosclerosis of [place] coronary artery of [place] heart without angina pectoris; Atrial fibrillation, unspecified type (HCC); BENIGN HYPERTENSION; Acute on chronic systolic heart failure (HCC); Benign prostatic hyperplasia, unspecified whether lower urinary tract symptoms present; HUMBLE (generalized anxiety disorder) Allergies Active Allergy Reactions Severity Noted Date [...] mRNA, LNP-s, No Pre serve, 2-Dose Series (Anygma) 08/01/2020,07/11/2020 Pneumococcal Conjugate Vacci ne, 20-valent ([id number]) 05/09/2022 Seasonal Influenza Virus Vac cine, Unspecified [...] Sign Reading Time Taken Comments Blood Pressure 104/62 12/04/2022 11:31 AM EDT Pulse 66 12/04/2022 11:31 AM EDT Temperature 36.4 C (97.6 F) 12/04/2022 11:31 AM E DT Respiratory Rate 20 12/04/2022 11:31 AM EDT Oxygen Saturation 96% 12/04/2022 11:31 AM EDT Inhaled Oxygen Concentration - - Weight 104 kg (229 lb 3.2 oz) 12/04/2022 11:31 A M EDT Height - - Body Mass Index 36.99 07/01/2022 3:00 PM EST documented in this encounter Functional Status [...] No 04/27/2022 documented as of this encounter Patient Instructions * Patient Instructions* Lindsay Martinez LPN - 12/04/2022 11:34 AM EDT Patient Instructions - Fall Prevention (This education is for all patients over 65 regardless of symptoms) Remember to take your current medications as prescribed. In order to prevent falls, you are encouraged to: Exercise Utilize assistive/adaptive devices Avoid multifocal lenses when walking Avoid hazards in home Maintain a regular toileting schedule Any questions please contact our office. Preventing Falls in the Home (This education is for all patients over 65 regardless of symptoms) As you get older, falls are more likely. Thats because your reaction time slows. Your muscles and joints may also get stiffer, making them less flexible. Illness, medications, and vision changes can also affect your balance. A fall could leave you unable to live on your own. To make your home safer, follow these tips: Floors Put nonskid pads under area rugs Remove throw rugs Replace worn floor coverings Tack carpets firmly to each step on carpeted stairs. Put nonskid strips on the edges of uncarpeted stairs Keep floors and stairs free of clutter and cords Arrange furniture so there are clear pathways Clean up any spills right away Bathrooms Install grab bars in the tub or shower Apply nonskid strips or put a nonskid rubber mat in the tub or shower Sit on a bath chair to bathe Use bathmats with nonskid backing Lighting Keep a flashlight in each room Put a nightlight along the pathway between the bedroom and the bathroom Anabel[employer] Patient Education Copyright 2008 - 2010 Anabelle except where otherwise noted Preventing Falls: Exercises to Improve Balance, Flexibility, Strength, and Staying Power (This education is for all patients over 65 regardless of symptoms) Certain types of exercises may help make you less likely to fall. Try the ones below. Or do other exercises that your healthcare provider suggests. Depending on your health, you may need to start slowly. Dont let that stop you. Even small amounts of exercise can help you. Be sure to talk to yourhealthcare provider before starting any exercise program. Improve Balance Many types of exercise can help improve balance. Sunny chi and yoga are good examples. Heres another one to try. You can do it anytime and almost anywhere. Stand next to a counter or solid support. Push yourself up onto your tiptoes. Hold for 5 seconds. If you start to lose your balance, hold on to the counter. Rest and repeat 5 times. Work up to holding for 20 to 30 seconds, if you can. Increase Flexibility Being more flexible makes it easier for you to move around safely. Try exercises like the seated hamstring stretch. Sit in a chair and put one foot on a stool. Straighten your leg and reach with both hands down either side of your leg. Reach as far down your leg as you can. Hold for about 20 seconds. Go back to the starting position. Then repeat 5 times. Switch legs. Build Strength Resistance exercises help build strength. You can do them without equipment. Or you can use weights, elastic bands, or special machines. One such exercise is called the biceps curl. You can hold a 1 pound weight or even a can of soup. Do this exercise at least 3 times a week. Strive for everyday. Sit up straight in a chair. Keep your elbow close to your body and your wrist straight. Bend your arm, moving your hand up to your shoulder. Then slowly lower your arm. Repeat 5 times. Switch to the other arm. Build Your Staying Power Aerobic exercises make your heart and lungs stronger so you can keep moving longer. Walking and swimming are two of the best types of exercises you can do. Using a stationary bike is great, too. Find an aerobic exercise that you enjoy. Start slowly and build up. Even 5 minutes is helpful. Aimfor a goal of 30 minutes, at least 3 times a week. You dont have to do 30 minutes in one session. Break it up and walk a little throughout the day. More Helpful Tips Start easy. Slowly work up to doing more. Talk with your healthcare provider about the best exercises for you. Call senior centers or health clubs about exercise programs. If needed, have a family member watch you walk every so often to check your stability. Exercise with a friend. Choose an activity you both enjoy. Try exercises that you can do anytime, anywhere. Here are two examples. Have someone with you when you first try these: Practice walking by placing one foot right in front of the other. Stand up and sit down 10 times. Repeat this throughout the day. Anabelle Patient Education Copyright 2008 - 2010 Anabelle except where otherwise noted. Preventing Falls: Moving Safely Using a Cane or Walker (This education is for all patients over 65 regardless of symptoms) Keep the cane away from your feet so you dont trip. A walking aid, such as a cane or walker, can help you stay more independent and avoid falls. Remember to keep your walking aid within easy reach when youre in a chair or in bed. And learn how to use it safely so you dont injure yourself. Using a Cane If you have a stronger side, hold the cane on that side. 17. Get your balance. 18. Move the cane and your weaker leg forward. 19. Support your weight on both the cane and your weaker side. 20. Step with your stronger leg. 21. Start again from step 1. If youre using a folding walker, be sure you know how to lock it open. Check that its locked open before each use. Using a Walker 7. Roll the walker (or lift it, if youre using one without wheels) forward about 12 inches. 8. Step forward with your weaker leg first. 9. Use the walker to help keep your balance. 10. Bring your other foot forward to the center of the walker. 11. Start again from step 1. Helpful Tips Check with your healthcare provider about the right walking aid to use. Ask about a walker with a seat attached. Check the tips of your cane or walker to make sure they have nonskid covers. Move slowly from room to room. Dont delgado. Sit down to get dressed. Use a maria esther pack or backpack to keep your hands free. Get help for jobs that mean climbing, even on a stepstool. Anabelle Patient Education Copyright 2008 - 2010 Anabelle except where otherwise noted. Treating Urinary Incontinence in Men (This education is for all patients over 65 regardless of symptoms) You can't always control the release of urine. You may leak urine. Or you may not be able to hold your urine until you can get to a bathroom. This is called urinary incontinence. The problem can be managed. Talk to your doctor about your treatment options. Taking Medications Prescription medications may help you. They may: Help the sphincter to work better. (This is the muscle that closes to keep urine from leaking out of the bladder.) Help stop the bladder from gail too often to push urine out. Help the bladder muscles contract with more force. Help relax the sphincter muscle and allow urine to flow more freely. Making Changes to Your Routine Certain changes in your daily routine may help. These include: Avoiding caffeine and alcohol. Using timed voiding. This is following a schedule for drinking fluids and urinating. Doing Kegel exercises daily. These exercises involve tightening the muscles in your sphincter and around your bladder to help strengthen them. Your doctor can explain how to do them. Using a Catheter A catheter is a narrow tube that is inserted through the urethra into the bladder. It drains urine.A condom catheter covers the penis. It channels urine into a collection bag. It is worn most of thetime. Intermittent catheterization means inserting a catheter to drain the bladder, then removing it. This is done on a regular schedule. Having Surgery If other options don't work, surgery may be recommended. If surgery is an option, your healthcare provider can discuss it with you and explain its risks and benefits. Healing After Prostate Surgery Surgery on the prostate gland can cause incontinence. Most often, the incontinence is only for a short time. It clears up when healing is complete. Very rarely, prostate surgery can result in permanent incontinence. BMI (Body Mass Index) is the number obtained by dividing a person's weight in kilograms by his or her height in meters squared. BMI is used in determining obesity. BMI is not used to determine a person's actual percentage of body fat, but it is a good tool to tab card press operator weight in terms of what is healthy and unhealthy. It is used to identify adults at increased risk for developing weight related medical problems. Estimated body mass index is 36.99 kg/m as calculated from the following: Height as of 07/01/22: 1.676 m (5' 6"). Weight as of this encounter: 104 kg (229 lb 3.2 oz). Obesity - BMI 35 kg/m2 to 39.9 kg/mg - Obese individuals are at a risk for developing * Heart disease * Stroke * Diabetes * High Blood Pressure * High Cholesterol * GERD (acid reflux) * Sleep Apnea * Osteoarthritis * Fatty Liver Disease * Certain Types of Cancers * Gout * Gall Bladder Disease - Weight loss has been shown to decrease weight related medical problems. - Those with a BMI 35 kg/m2 or higher are almost ten times more likely to develop diabetes in theirlifetimes than those with a normal BMI. - A 12-week weight management text message program is also available. Go to [email or web address] and seethe message under '[email or web address] News' for more information and enrollment. Patient is Instructed to: Diet: * Limit total fat intake to no more than 40 grams per day (low fat diet). * Increase fruits and vegetables to 5 servings per day, combined. * Limited starches (breads, pasta, rice, potatoes, corn, cereals) to 4 servings per day. Avoid Calorie Containing Drinks: * No fruit juices, regular sodas or sweetened drinks. * Water is preferred - 64 ounces per day unless advised of a fluid restriction. * Diet sodas and drinks permitted. Keep Honest, Accurate Food logs: * www.Musicmetric.TradingView * www.Tungle.me * If you bite it - write it! Weigh Yourself Weekly: * Morning is best. * Try to do this outside your home. * Have a friend/spouse remind you to weigh yourself, accountability to others helps. Perform 30 minutes of physical activity daily: * Can do all at once or 5 minutes 6 times per day * 8, 000-10,000 steps per day using a pedometer * Make it fun! documented in this encounter Progress Notes * Sherice Massey MD - 12/04/2022 12:16 PM EDT Images from the original note were not included. History of Present Illness Bjorn Zapata is a 77 year old male that presents for Status Check Brief Clinical History Mr. Zapata is a 77 year old man last seen in Family Medicine today (12-04-22). He has h/o Atrial fibrillation (HCC), chronic diabetic complication, heart arrhythmia, heart failure, Heart failure with acute decompensation, type unknown (HCC), morbid obesity, Morbid obesity (HCC), and Type 2 diabetes mellitus with diabetic polyneuropathy ([facility]), due for eval of AAA (abdominal aortic aneurysm) ([facility]). His diabetes is ? controlled on meds. [facility] His last foot examwas<1 yr ago. His last eye exam was <1 yr ago. He does daily foot exams. He denies any hypoglycemic episodes. His hypertension is well controlled on meds. He admits to no symptoms and denies BACON, dizziness, CP,SOB, LE edema,e tc. His medication includes ish-I, BB. He admits side effects from medication are none. His hyperlipidemia has been ? Controlled on meds. He has been compliant with his meds. He admits elvie symptoms and denies muscle aches/ fatigue. He also has a H/o HUMBLE. Doing well on current regimen Has a h/o AAA, CAD, AF, CHF. No concerns at this time Has a h/o BPH. Wakes 4x at night to use restroom. Would like to try something to help w/ this. No other asso'd symptoms Physical Exam Vitals: 12/04/22 1131 Temp: 36.4 C (97.6 F) Pulse: 66 Resp: 20 SpO2: 96% BP: 104/62 BP Readings from Last 3 Encounters: 12/04/22 104/62 07/08/22 120/68 07/03/22 122/70 Wt Readings from Last 3 Encounters: 12/04/22 104 kg (229 lb 3.2 oz) 07/08/22 103 kg (227 lb) 07/03/22 102.1 kg (225 lb 1.6 oz) BMI Readings from Last 3 Encounters: 12/04/22 36.99 kg/m 07/08/22 36.64 kg/m 07/03/22 36.33 kg/m Ht Readings from Last 3 Encounters: 07/01/22 1.676 m (5' 6") 04/27/22 1.702 m (5' 7") 04/21/22 1.702 m (5' 7") Physical Exam Vitals and nursing note reviewed. Constitutional: General: He is not in acute distress. Appearance: Normal appearance. He is well-developed and well-groomed. He is obese. HENT: Right Ear: External ear normal. Left Ear: External ear normal. Nose: Nose normal. Eyes: General: No scleral icterus. Extraocular Movements: Extraocular movements intact. Conjunctiva/sclera: Conjunctivae normal. Neck: Thyroid: No thyroid mass, thyromegaly or thyroid tenderness. Cardiovascular: Rate and Rhythm: Normal rate and regular rhythm. Heart sounds: Normal heart sounds. Pulmonary: Effort: Pulmonary effort is normal. Breath sounds: Normal breath sounds. Musculoskeletal: Cervical back: Neck supple. No rigidity. Right lower leg: No edema. Left lower leg: No edema. Neurological: Mental Status: He is alert. Psychiatric: Attention and Perception: Attention normal. Mood and Affect: Mood normal. Speech: Speech normal. Behavior: Behavior normal. Behavior is cooperative. Thought Content: Thought content normal. Judgment: Judgment normal. I have reviewed the following results: Lipid Panel Assessment and Plan Severe obesity with body mass index (BMI) of 35.0 to 39.9 with serious comorbidity (HCC) Keep self active Watch diet/ portion control Risk and functional assessment Hypertensive heart disease with congestive heart failure, unspecified heart failure type (HCC) Type 2 diabetes mellitus with diabetic polyneuropathy, unspecified whether termite control technician insulin use (HCC) Low carb diet Cont current meds F/u w/ eye doc at least annually Check feet daily Hyperlipidemia, unspecified hyperlipidemia type Low fat diet Cont current meds Abdominal aortic aneurysm (AAA) without rupture, unspecified part (HCC) stable Atherosclerosis of [place] coronary artery of [place] heart without angina pectoris Cont current meds Atrial fibrillation, unspecified type (HCC) stable BENIGN HYPERTENSION Low Na diet Cont current meds Keep f/u w/ cardio chronic systolic heart failure (HCC) stable Benign prostatic hyperplasia, unspecified whether lower urinary tract symptoms present Trial w/ flomax HUMBLE (generalized anxiety disorder) Cont current meds Wrap-Up Follow Up: Return in about 6 months (around 06/06/2023), or if symptoms worsen or fail to improve, for Return with Physician, Clinic Visit. | For: Return with Physician, Clinic Visit | Check-out note:[facility] labs Nurse phone f/u 1 mos - flomax Patient counseling on weight management given. * Lindsay Martinez LPN - 12/04/2022 11:34 AM EDT Fall Risk Plan of Care Documentation: - Current medications reconciled Patient encouraged to: - Exercise - Provide education materials for Core strengthening - Utilize assistive/adaptive devices - Provide education materials - Avoid multifocal lenses when walking - Avoid hazards in home - Provide education materials - Maintain a regular toileting schedule Lindsay Martinez LPN 12/04/2022 Urinary Incontinence Plan of Care Documentation: (This education is for all patients over 65 regardless of symptoms) Current medications reconciled. Patient encouraged to: Practice kegal exercises Provide education materials Use the restroom every 2 hours throughout the day Limit caffeine, alcohol, spicy foods and acidic foods Keep a bladder diary Limit fluid intake 3-4 hours before bed Lose weight Prevent constipation Take fluid pills at a time when you can get to the bathroom quickly Control sugar better if diabetic Limit fluid intake to 60 oz. per day Wear support stockings (TEDs)if you have edema Lindsay Martinez LPN 12/04/2022 documented in this encounter Nursing Notes * Lindsay Martinez LPN - 12/04/2022 11:31 AM EDT Check up documented in this encounter Plan of Treatment Upcoming Encounters Date Type Specialty Care Team Description 01/05/2023 Scheduled Telephone Ancillary [place], Nurse Mark Yoo [address] [place] [address] 06/17/2023 Office Visit Family Medicine Sherice Silva MD [address] [place] [address] Health Maintenance Due Date Last [...] exists Albumin/Creatinine Ratio 05/09/20232 023, 05/12/2020, 05/12/2020 DIABETES-FOOT EXAM 05/09/2023 05/09/2022 [...] as of this encounter Visit Diagnoses Diagnosis Severe obesity with body mass index (BMI) of 35.0 to 39.9 with serious comorbidity (HCC)- Primary Risk and functional assessment Screening for unspecified condition Hypertensive heart disease with congestive heart failure, unspecified heart failure type (HCC) Type 2 diabetes mellitus with diabetic polyneuropathy, unspecified whether longterm insulin use (HCC) Hyperlipidemia, unspecified hyperlipidemia type Abdominal aortic aneurysm (AAA) without rupture, unspecified part (HCC) Atherosclerosis of [place] coronary artery of [place] heart without angina pectoris Atrial fibrillation, unspecified type (HCC) BENIGN HYPERTENSION Unspecified essential hypertension Acute on chronic systolic heart failure (HCC) Acute on chronic systolic heart failure Benign prostatic hyperplasia, unspecified whether lower urinary tract symptoms present HUMBLE (generalized anxiety disorder) Generalized anxiety disorder documented in this encounter Additional Health Concerns [...] Advance Directives occurred with: Patient Care Teams Integrated Program Teacher Relationship Specialty Start Date End Date Sherice Silva MD [facility] [place] [address] PCP - General Family Medicine 11/27/22 documented as of this encounter
--- OUTSIDE RECORDS SUMMARY | 2023-03-10 23:07 | External Medical Summary | Summary of Care ---
Author Name Unknown Organization [facility] Address [address] [place] [address] Phone [phone] Care Team Providers Care Pharmacy Informaticist Name Role Phone Sherice Glover MD Primary Care Prov ider Reason for Visit * Reason Comments eRx-Medication Refill Encounter Details Date Type Department Care Team Description 12/28/2022 Refill [facility] [address] [place] [address] Tyra Mcpherson PA-C [address] [place], [place] [phone] Allergies Active Allergy Reactions Severity Noted Date Comments Duloxetine Hcl Edema Other 04/27/2022 Semaglutide(0.25 Or 0.5mg-Dos) Medium 04/21 Stomach pain/cramps documented as of this encounter (statuses as of 12/30/2022) Medications Medication Sig Dispensed Refills Start Date [...] AND BEDTIME) 180 Tablet 1 12/30/2022 Active Eliquis 5 MG Oral Tablet (Apixaban) TAKE 1 TABLET BY MOUTH TWICE DAILY (MORNING AND BEDTIME) 60 Tablet 3 08/13/2022 Discontinued documented as of this encounter (statuses as of 12/30/2022) Active Problems Problem Noted Date Hypertensive heart [...] as of this encounter (statuses as of 12/30/2022) Resolved Problems Problem Noted Date Resolved Date Viral pneumonia 04/27/2022 04/30/2022 documented as of this encounter (statuses as of 12/30/2022) Immunizations Name Administration Dates Next Due COVID-19 mRNA, LNP-s, No Pre serve, 2-Dose Series (Pfizer) 08/01/2020,07/11/2020 Pneumococcal Conjugate Vacci ne, 20-valent ([id number]) 05/09/2022 Season Influenza, Quad, PF, Adjuvanted, 65+ [...] encounter Miscellaneous Notes * Telephone Encounter - Mary Ragsdale RPh - 12/30/2022 8:36 AM EDT Signed Prescriptions: Disp Refills Eliquis 5 MG Oral Tablet (Apixaban) 180 Ta*1 Sig: TAKE 1 TABLET BY MOUTH TWICE DAILY (MORNING AND BEDTIME)Authorizing Provider: SHERICE GLOVER User: MARY RAGSDALE documented in this encounter Plan of Treatment Upcoming Encounters Date Type Specialty Care Team Description 01/05/2023 Scheduled Telephone Ancillary [facility], Nurse Mark Yoo [address] [place] [address] 06/17/2023 Office Visit Family Medicine Sherice Glover MD [address] [place] [id number] Health Maintenance Due Date Last Done Comments [...] DIABETES-FOOT EXAM 05/09/2023 05/09/2022 GFR 07/03/2023 07/02/2022, 0310/2022, 06/30/2022, Additional history exists Depression Screening, Annual for Pts 12 and Over 12/05/2023 12/04/2022 Pneumococcal Vaccine: 65+ Years Completed [...] Advance Directives occurred with: Patient Care Teams Pharmacy Informaticist Relationship Specialty Start Date End Date Sherice Glover MD [address] [place] [id number] PCP - General Family Medicine 11/27/22 documented as of this encounter
[2023-03-11] MEDS: HYDROmorphone HCL 2 MG TAB PO PRN ×2 (02:52→09:43)
[2023-03-11] MEDS ORDERED: SIMETHICONE 80 MG CHEW PO ONE (03:07)
[2023-03-11 08:07] LABS: Hematocrit (blood only) 27.9 % (42.0-52.0); Mean Corpuscular Hemoglobin 22.6 pg (25.0-34.0); Mean Corpuscular Hgb Conc 28.7 g/dL (32.0-36.0); Mean Corpuscular Volume 78.8 fL (80.0-100.0); Mean Platelet Volume 9.3 fL (9.4-12.4); Platelet Count 136 K/uL (130-400); RDW Coefficient of Variation 17.9 % (11.5-14.5); RDW Standard Deviation 50.4 fL (36.4-46.3); Red Blood Count 3.54 M/uL (4.70-6.10); White Blood Count 4.13 K/ul (4.8-10.8)
[2023-03-11] MEDS: PANTOprazole 40 MG TAB PO SCH (08:18)
[2023-03-11] MEDS: METOPROLOL SUCC 50MG EXT REL TAB PO SCH (08:18)
[2023-03-11] MEDS: PARoxetine HCL 20 MG TAB PO SCH (08:18)
[2023-03-11 08:21] LABS: Basophils # (auto) 0.01 K/uL (0.00-0.20); Basophils % (auto) 0.2 %; Eosinophils # (auto) 0.11 K/uL (0.00-0.50); Eosinophils % (auto) 2.7 %; Immature Granulocytes # (auto) 0.02 K/uL (0.01-0.20); Immature Granulocytes % (auto) 0.5 %; Lymphocytes # (auto) 0.73 K/uL (1.20-3.40); Lymphocytes % (auto) 17.7 %; Monocytes % (auto) 9.7 %; Neutrophils # (auto) 2.86 K/uL (1.40-6.50); Neutrophils % (auto) 69.2 %; Ovalocytes 1+; Polychromasia 1+; Tear Drop Cells 1+
[2023-03-11 08:57] LABS: BUN Creatinine Ratio 13.4 (10-20); Calcium 8.9 mg/dl (8.6-10.3); Creatinine Clr Calc Pharmacy 55.5 ml/min; Est GFR (African American) 59.2 ml/min; Est GFR (Non-African American) 51.1 ml/min; Potassium 4.2 mmol/L (3.5-5.1)
[2023-03-11] MEDS: INSULIN ASPART PER UNIT CHARGE SC SCH (09:08)
--- NOTE | 2023-03-11 09:16 | Urology Progress Note ---
Date of Service March 11, 2023 Assessment & Plan (1) Hematuria: (2) Bladder mass: (3) Urinary retention: Plan 77yo/M with a known bladder mass admitted with clot retention. - POD #2 s/p Transurethral Resection Bladder Tumor large, Bilateral Retrograde Pyelogram, clot evacuation with Dr. Harding. - Recovering appropriately. - Still with some discomfort at the catheter insertion site, but improved from yesterday. - Afebrile and hemodynamically stable. - Labs reviewed -WBC 4.13, hemoglobin 8.0, creatinine 1.34. - Urine culture final with more than 3 types of organisms, moderate counts. Continues on Ceftriaxone. - Mcmanus intact, draining yellow urine with a few small clots in tubing. Continue to monitor. Ok to gently hand irrigate as needed for clots, retention, suprapubic pain. - OK for d/c from standpoint. - Maintain Mcmanus catheter on discharge. Patient is scheduled for a voiding trial as an outpatient with urology office on 03/13/2023. - Urology will follow peripherally. Please contact us with any further questions/concerns. Admission and Anticipated Discharge Date Admission Date: March 08, 2023 Subjective Patient examined at bedside this AM. Awake, resting in bed on arrival. No acute distress. Mcmanus intact, draining yellow urine with a few small clots in tubing. Denies fevers, chills, nausea, vomiting. Denies abdominal or suprapubic discomfort at present. Still with some discomfort at catheter insertion site, but improved from yesterday. Review of Systems Constitutional: as per Subjective / HPI Gastrointestinal: as per Subjective / HPI Genitourinary: + as per Subjective / HPI Physical Exam Constitutional: no acute distress Respiratory: normal respiratory effort; no respiratory distress and no labored breathing Neurologic: awake Psychiatric: Orientation: alert and cooperative Genitourinary: Mcmanus catheter intact, draining clear yellow urine with a few small clots in tubing Results & Data Vital Signs (Past 12 Hours) Vital Signs Temp Pulse Pulse Resp BP Pulse Ox O2 Del Method 03/11/23 07:31 36.9 C 81 18 143/71 H 95 Room Air 03/11/23 07:08 85 03/11/23 03:01 36.8 C 91 H 16 114/71 95 Room Air 03/10/23 23:37 77 03/10/23 23:12 36.8 C 78 16 150/75 H 95 Room Air PG Care Time/CCT Total # of Minutes Spent Total Time Spent with Patient: Total time spent is greater than 50% in coordination of care (as documented) at patient's floor/unit and/or counseling patient: Coding Level of Care Code 71451 SUB INP/OBS CARE 2/35MIN Diagnoses Hematuria R31.9 Bladder mass N32.89 Urinary retention R33.9
--- NOTE | 2023-03-11 12:41 | Discharge Summary ---
Date of Service March 11, 2023 Admission HPI Per Admitting Provider Bjorn is a 77-year-old male with PMH of stomach cancer, T2DM, anxiety, CAD, HLD, HTN, NM, BPH, paroxysmal atrial fibrillation, vertigo, orthostatic hypotension, and CHF. He presented for blood clots in his urine. He reports that he is scheduled for surgery with Dr. Harding tomorrow morning on 03/09, but could not wait due due to worsening suprapubic pain. The patient has been hematuria x2 weeks. However, it acutely worsened last night on 03/08. He endorses 10/10 sharp intermittent that builds up in intensity q15m. The pain lasts for 5-10 minutes at a time. No radiation to the legs, upper abdomen, or back. No flank pain. He did not take any pain medication at home. He reports that urination alleviates the pain; so to standing. Patient was seen by urology in the ED, who recommended Jones catheter and bladder irrigation, and for the patient to be admitted overnight. The patient took his morning medications. Hypertension at 172/82; otherwise, vitals stable at time of admission. ED course: Rocephin 2000 mg IV Hydromorphone 0.25 mg IV x2 Zofran 4 mg IV ROS: Patient endorses hematuria, passing blood clots, suprapubic pain. Patient denies fever, chills, sweats, CP, SOB, pleuritic CP, N/V/D, back pain, saddle anesthesia, and numbness/tingling/pain in the legs. No hx of kidney stones, DVT/PE Principal Diagnosis bladder mass Discharge Exam The patient is awake, alert and oriented 3, well developed and well nourished, normocephalic and atraumatic, lying in bed and in no acute distress. HEENT--PERRL, EOMI, mucous membranes and oropharynx mildly dry Neck--supple. No JVD. No bruits. Thyroid normal, trachea midline, no adenopathy. Heart--normal S1 and S2. No murmurs, rubs or gallops. Lungs--clear bilaterally, no respiratory distress, no accessory muscle use. Abdomen--normal bowel sounds and soft. Mild epigastric and left sided abdominal pain Extremities--no cyanosis or clubbing. No edema. Dermatologic--normal skin turgor, normal color, no abnormal lymph nodes, no rash. Neurologic--cranial nerves II through XII grossly intact. Rheumatologic--normal range of motion. Psychiatric--normal affect. Discharge Data Allergies Allergy/AdvReac Type Severity Reaction Status Date / Time apixaban [From Eliquis] Allergy Intermediate Rash Verified 03/09/23 10:09 semaglutide [From Ozempic] Allergy Intermediate Gastrointestinal Verified 03/09/23 10:09 Upset Consultations 03/08/23 19:58 ED Decision to Admit Stat 03/08/23 22:39 Consult Urology Routine Procedures Performed Operation Date: 03/09/23 11:00 Actual Procedures p Transurethral Resection Bladder Tumor, (Not Applicable) - Jass Harding MD s Bilateral Retrograde Pyelogram(Bilateral) - Jass Harding MD Ordered Studies 03/08/23 18:13 CT Abd and Pelvis [CT abd pelvis wo con] Stat Hospital Course (1) Hematuria: Patient passing blood clots in urine x2 weeks with acute worsening last night on 03/07 UA positive +3 blood Abdomen/pelvis CT revealed 3.5 cm left posterior bladder wall mass He is now s/p cystoscopy and removal of 8cm mass in the dome Bleeding controlled Appreciate Urology d/c home follow up with urology for jones mgt (2) Diabetes mellitus, type 2: Last A1c 4.8% on 12/19/2021 Glucose 1 3 on arrival Hold metformin, Jardiance Patient normally takes insulin glargine 40u SQ QAM; last taken morning of 03/08 Hold basal insulin prior to urologic procedure; continue with SSI and Lantus following procedure T2DM diet Adjust regimen as needed AM A1c (3) Chronic diastolic CHF (congestive heart failure): Last echo on 05/20/2022 showed LVEF of 55-60% Hold Lasix (4) PAF (paroxysmal atrial fibrillation): Patient not currently on anticoagulation Rate controlled; continue metoprolol (5) Stomach cancer: Dx in January 2023 (6) Hypertension: BP 146/93 at time of admission Continue metoprolol (7) CAD (coronary artery disease): IMI, RCA BMS x2 No ischemia on Lexiscan 05/2022 (8) Suprapubic abdominal pain: still having some pains, but now more around the penis Patient received hydromorphone 0.25 mg x 2 in the ED Acetaminophen 1000 mg IV q8h as needed for pain 1-3 Hydromorphone 0.5 mg IV q2h as needed for pain 4-6 Hydromorphone 1.0 mg IV q2h as needed for pain 7-10 add lidocaine gel convert IV meds to PO in anticipation of discharge (9) Hyperlipidemia: Continue simvastatin (10) Anxiety: Continue paroxetine after procedure (11) Acute blood loss as cause of postoperative anemia: stable hb monitor Plan Hopefully d/c tomorrow when pain is under better control Disposition: Admit to [facility] telemetry Full code VTE PPx: SCDs (hold chemical DVT PPx in setting of gross hematuria and urologic intervention) Total Time Total Time Spent Total Time Spent (In Minutes): 35 Discharge Plan Discharge Items Patient Disposition: Home - Self-Care Reason For Visit: HEMATURIA, SUPRAPUBIC PAIN Discharge Diagnosis: badder mass Activity: Resume your previous activity Non-emergency contact: Primary Care Provider and Urologist Call non-emergency contact if: you have any medication questions Follow-up/Referrals: Sherice Weathers MD [Primary Care Provider] - (PLEASE CALL YOUR PRIMARY CARE PROVIDER TO SCHEDULE A HOSPITAL DISCHARGE FOLLOW-UP APPOINTMENT WITHIN 7-10 DA YS) [facility],Nurse [FAKE FOR SCHEDULES] - 03/13/23 9:40 am Diet: Regular Addtl Attending Provider Instructions: please follow up with Urology Pending Studies at Discharge: No Stand-Alone Forms: My [employer], Smoking Cessation Medications and DC Order Prescriptions: New cephalexin 500 mg capsule 500 mg PO BID 7 Days Qty: 14 0RF acetaminophen [Tylenol Extra Strength] 500 mg tablet 500 mg PO Q6H PRN (Reason: pain) Qty: 14 0RF Continued (DME) OneTouch Ultra Blue Test Strip strip See Dose Instructions .ROUTE .MEDSUPPLY Qty: 10 Rx Instructions: As directed (DME) blood-glucose meter [OneTouch Ultra2 Meter] kit See Dose Instructions .ROUTE .MEDSUPPLY Qty: 1 Rx Instructions: As directed simvastatin 80 mg Tablet 40 mg PO HS insulin glargine 100 unit/mL Solution 40 unit SUBCUT QAM Jardiance 10 mg tablet 10 mg PO HS Rx Instructions: ON HOLD FOR PROCEDURE ON 11/13/23 furosemide [Lasix] 40 mg Tablet 40 mg PO DAILY PRN (Reason: Edema) aspirin 81 mg Capsule 81 mg PO QAM cyanocobalamin (vitamin B-12) [Vitamin B-12] 1,000 mcg Tablet 1,000 mcg PO QAM metformin 1,000 mg Tablet 1,000 mg PO BID ferrous sulfate 220 mg/5 mL Elixir 220 mg PO Q OTHER DAY Patient Comments: in the am 1 tsp omeprazole 40 mg capsule,delayed release(DR/EC) 40 mg PO DAILY metoprolol succinate 50 mg tablet extended release 24 hr 50 mg PO QAM cholecalciferol (vitamin D3) [Vitamin D3] 25 mcg (1,000 unit) Capsule 25 mcg PO DAILY paroxetine HCl [Paxil] 40 mg Tablet 20 mg PO DAILY Discharge Orders: Discharge Order (Routine); Ordered 03/11/23 Ordered By: Didi Ortiz Admission Data Admit Date/Time: 03/08/23 20:24 Attending Provider: Didi Ortiz Admit Provider: Marcos Schneider Primary Care Provider: Sherice Weathers Other Providers: [facility]; Marcos Schneider; Harish Gomez Other Interventions: Discharge Summary Assessment (RN) Last Done: 03/11/23 12:18 Coding Level of Care Code 54784 INP/OBS DISCH >30 MIN Diagnoses Hematuria R31.9 Diabetes mellitus, type 2 E11.9 Chronic diastolic CHF (congestive heart failure) I50.32 PAF (paroxysmal atrial fibrillation) I48.0 Stomach cancer C16.9 Hypertension I10 CAD (coronary artery disease) I25.10 Suprapubic abdominal pain R10.2 Hyperlipidemia E78.5 Anxiety F41.9 Acute blood loss as cause of postoperative anemia D62 Time Spent (min) 35
--- NOTE | 2023-03-13 10:52 | Coding Query ---
PATHOLOGY To promote full compliance with coding requirements relating to patient care, physician participation is requested in all cases of buffing wheel former automatic uncertainty. Please assist us with the question(s) below: Please review the Pathology report and please document any relevant diagnosis(es) below: Diagnosis(es): adenocarcinoma Thank you ETHAN Mondragon [facility]
== END 2023-03-11 13:07 | disposition home or self-care (01) | DRG 669 ==
LOC: ED 13:34 → EDINP 20:24 → SUATTDRO 20:24 → EDINP 03-09 10:25 → 2N 03-09 15:50
DX: C67.8 Malignant neoplasm of overlapping sites of bladder; I48.0 Paroxysmal atrial fibrillation; E78.5 Hyperlipidemia, unspecified; I95.0 Idiopathic hypotension; I11.0 Hypertensive heart disease with heart failure; Z86.16 Personal history of COVID-19; D62 Acute posthemorrhagic anemia; R33.9 Retention of urine, unspecified; I25.2 Old myocardial infarction; E11.9 Type 2 diabetes mellitus without complications; Z83.3 Family history of diabetes mellitus; R31.0 Gross hematuria; I25.10 Atherosclerotic heart disease of native coronary artery without angina pectoris; Z79.4 Long term (current) use of insulin; Z88.8 Allergy status to other drugs, medicaments and biological substances; I50.32 Chronic diastolic (congestive) heart failure; F41.9 Anxiety disorder, unspecified; C16.9 Malignant neoplasm of stomach, unspecified; Z79.84 Long term (current) use of oral hypoglycemic drugs